=== PATIENT | female | born 1970 | race Caucasian/White ===

== ENCOUNTER 2020-11-16 10:22 | Emergency (ER) | payer MEDICAID, SELFPAY ==
--- NOTE | ~2020-11-16 | XR_ITS ---
EXAMINATION: XR CHEST CLINICAL INFORMATION: Shortness of breath. Hypoxia. COMPARISON: Chest done on 07/07/2017. TECHNIQUE: Frontal view of the chest was obtained. FINDINGS: Subtle airspace opacity is noted at right lung base, may represent hypoventilatory, atelectatic changes versus infiltrate, new since prior study. The heart size is within normal limit. There is no pleural effusion or pneumothorax. XR/XR chest 1V IMPRESSION: Subtle airspace opacity at right lung base, may represent infiltrate versus hypoventilatory/atelectasis or combination thereof.
--- NOTE | ~2020-11-16 | MR_ITS ---
EXAMINATION: MR LUMBAR SPINE WITHOUT AND WITH CONTRAST CLINICAL INFORMATION: Fever, drug use, severe low back pain with lower extremity weakness. COMPARISON: None TECHNIQUE: MRI of the lumbar spine was obtained using routine sequences without and with intravenous contrast. A total of 5.5 mL Gadavist was intravenously administered. FINDINGS: There is diffuse bone marrow edema centered about the L5-S1 endplates with significant enhancement throughout the majority of the L5 and S1 vertebral bodies. There is fluid signal and nonenhancement within the disc space. The constellation of findings are compatible with discitis osteomyelitis with intradiscal abscess. Enhancement is seen along the ventral epidural space at the L5-S1 level extending asymmetrically into the left subarticular zone compatible with phlegmon. No drainable epidural abscess is seen. There is no definite cauda equina nerve root enhancement at this time. No psoas abscess is seen. There is mild phlegmonous change within the paravertebral region at the L5-S1 level. The lumbar vertebral bodies maintain normal heights and alignment. Canal is widely patent. Severe disc height loss is seen at L5-S1 with the remainder of the disc heights preserved. There is no large disc herniation. Spondylotic changes at the L5-S1 level results in moderate bilateral neural foraminal stenosis with mass effect on the exiting right more than left L5 nerve roots. Bilateral renal cysts are noted (no routine follow-up recommended). MR/MR lumbar spine wo/w con IMPRESSION: Subchondral marrow edema and diffuse vertebral body enhancement seen at L5-S1 compatible with osteomyelitis with associated intradiscal abscess. Paravertebral and epidural phlegmon is present without drainable collection. No psoas abscess.
[2020-11-16 10:31] VITALS: BP 114/64; PULSE 91; O2SAT 98
[2020-11-16 10:44] VITALS: BP 106/72; PULSE 80; RESP 16; TEMP 37.2; O2SAT 91; BMI 25.2
[2020-11-16 11:26] LABS: MANUAL DIFF FLAG NO
--- NOTE | 2020-11-16 11:26 | ED_ITS ---
HPI - General Adult General Chief complaint: Skin/Abscess/Foreign Body Stated complaint: LOW BACK PAIN,NO INJURY & R ARM INFECTION PER EMS Time Seen by Provider: 11/16/20 10:49 Source: patient and EMS Mode of arrival: EMS Limitations: no limitations History of Present Illness HPI narrative: 50 y/o female with history of heroin use, asthma, active smoker, history of CVA wtih right sided weakness, heptitis, seizures, hx traumatic subdural hematoma, anxiety who presents to the ED reporting worsening nontraumatic lower back pain for the last 3 weeks as well as new onset of right forearm abscess that she noticed yesterday. She reports a fever of 101 yesterday at home. She states her low back pain has been worsening to the point where she is having difficulty walking and performing her ADL's. She was incontinent of urine 2-3 times yesterday because she was unable to get to the bathroom in time. She reports bilateral LE weakness due to the pain. She has pain shooting down the back of her left leg. No numbness or tingling. She admits to using 1 bag of heroin prior to EMS arrival because of severe pain. She adamantly denies injecting saying that she has not done that in years that she only snorts it. complaint: severe low back pain Onset (ago): week(s) (3) Location: back, right and upper extremity Radiation: distal Severity: severe Severity scale (1-10): >10 Quality: stabbing and aching Pain Consistency: constant Relieving factors: rest Exacerbating factors: movement Associated symptoms: fever/chills, malaise and weakness Treatments prior to arrival: none Related Data Allergies Allergy/AdvReac Type Severity Reaction Status Date / Time No Known Allergies Allergy Verified 11/16/20 10:49 [No Known Allergies*] Review of Systems Review of Systems: Constitutional: + Fever, + Chills ENT/Mouth: No sore throat, No Rhinorrhea, No Swallowing Difficulty Cardiovascular: No Chest Pain, No SOB, No Orthopnea, No Edema Respiratory: No Cough, No Sputum, No Wheezing, No dyspnea Gastrointestinal: No Nausea, No Vomiting, No Diarrhea, No abdominal Pain Genitourinary: No Dysuria, No Urinary Frequency, No Hematuria Musculoskeletal: + joint pain, + Myalgias Skin: + Skin Lesions, No rash Neuro: + Weakness, No Numbness, No Dizziness, No Headache Psych: + Anxiety/Panic, No Depression Heme/Lymph: No Bruising, No Lymphadenopathy Endocrine: No Polyuria, No Polydipsia PMF Past Medical History Attestation statement: The following information was validated with the patient. Social History Social History Advance Directives: No Advance Directives Information Provided: No Physical Exam Vital Signs: Vital Signs: Last Vital Signs Temp 98.9 F 11/16/20 10:44 Pulse 80 11/16/20 10:44 Resp 16 11/16/20 10:44 BP 106/72 11/16/20 10:44 Pulse Ox 95 11/16/20 12:08 Body Mass Index 25.2 Appearance: Alert. Oriented X3. Appears to be in pain. Eyes: Pupils equal, 2mm. ENT: Pharynx normal. Neck: Normal inspection. Neck supple. CVS: Normal heart rate and rhythm. Pulses normal. Respiratory: No respiratory distress. Breath sounds normal. Abdomen: Soft and non-tender. +BS x4. Refusing AYANNA. Back: Significant midline tenderness to lower lumbar spine with left sided soft tissue tenderness. No thorcic or cervical spinal tenderness. Skin: Skin warm and dry. Normal skin color. Normal skin turgor. No rashes. Extremities: No lower extremity edema. Neuro: Oriented X 3. Bilateral LE weakness, able to stand but difficulties lifting both legs due to pain. DTR's intact. No sensory deficit. Course Course Course Narrative: 50 y/o female with active drug use presenting with severe nontraumatic low back pain causing debilitating symptoms and urinary incontinence. Unclear if difficulty ambulating is due to weakness or severe pain. Concern is for epidural abscess vs discitis vs cauda equina. Will need emergent MRI to rule these out.She is uncooperative with full neuro examination due to pain. Will medicate and reassess. Labs and cultures ordered. Empiric vanco and zosyn ordered and IVF ordered as well. She has SpO2 91% without SOB. Smokes 1 PPD, ?COPD. Will get CXR and COVID swab. Dispo pending results and improvement. Reevaluation(s) Reevaluation #1: WBC 14.4. with normal lactic acid. Awaiting MRI. Reevaluation #2: MRI showing Subchondral marrow edema and diffuse vertebral body enhancement seen at L5-S1 compatible with osteomyelitis with associated int radiscal abscess. Paravertebral and epidural phlegmon is present without drainable collection. No psoas abscess. Patient requires emergent Neurosurgical evaluation. [facility] called. When patient informed of diagnosis and need for transfer to acute care facility she had immediate anxiety, and trying to get up and leave. She was able to stand on her legs and take a few shuffling steps. She is crying and asking to go outside for a cigarette. She wants to leave. It was explained the urgency and seriousness of her condition Reevaluation #3: Both [facility] & [facility] declined transfer due to capacity issues. [facility] transfer line called. Accepted to the ER under Dr. Vieira. Procedures Abscess I/D Site: upper extremity Side (if applicable): right Local Anesthetic: lidocaine 2% Amount of anesthesia used (mL): 2 Technique: incised with blade Sent for culture/gram staining?: No Irrigation: Yes Packing used?: [email or web address] Medical Decision Making Lab Data Result diagrams: 11/16/20 11:10 11/16/20 11:10 Labs: Lab Results 11/16/20 11/16/20 11/16/20 Range/Units 11:10 11:10 11:10 WBC 14.4 H (4.8-10.8) X10*3/uL RBC 4.22 (4.20-5.50) X10*6/uL Hgb 12.1 (12.0-16.0) g/dl Hct 38.1 (37-47) % MCV 90.3 (80-98) fL MCH 28.7 (27.0-33.0) pg MCHC 31.8 (31.0-35.0) g/dl RDW 13.9 (11.0-16.0) % Plt Count 315 (160-400) X10*3/uL MPV 9.5 (9.4-12.3) fL Immature Gran % (Auto) 0.5 H (0.0-0.4) % Neut % (Auto) 80.5 H (45-73) % Lymph % (Auto) 10.3 L (20-40) % [place] % (Auto) 7.8 (2-11) % Eos % (Auto) 0.6 (0-4) % Baso % (Auto) 0.3 (0-2) % Lymph # (Auto) 1.5 (1.2-4.9) X10*3/uL [place] # (Auto) 1.1 (0.1-1.2) X10*3/uL Eos # (Auto) 0.1 (0.0-0.4) X10*3/uL Baso # (Auto) 0.1 (0.0-0.2) X10*3/uL Abs Immat Gran (auto) 0.07 H (0.00-0.03) X10*3/uL Absolute Neuts (auto) 11.6 H (2.0-8.3) X10*3/uL Absolute Nucleated RBC 0.000 (0.0-0.012) X10*3/uL Nucleated RBC % (auto) 0.0 (0.0-0.2) /100WBC PT 12.1 (10.8-13.0) SEC INR 1.0 (0.9-1.1) APTT 33.6 (24.1-38.0) SEC Sodium 137 (135-145) mmol/L Potassium 4.0 (3.3-5.1) mmol/L Chloride 100 (96-108) mmol/L Carbon Dioxide 27 (22-29) mmol/L Anion Gap 14 (12-20) BUN 13 (9-16) mg/dL Creatinine 0.57 (0.5-1.4) mg/dL Estim Creat Clear Calc 89.5 Estimated GFR > 60 Random Glucose 99 (60-115) mg/dL Lactic Acid (0.5-2.0) mmol/L Calcium 8.9 (8.4-10.2) mg/dL Magnesium 1.8 (1.6-2.6) mg/dL Total Bilirubin 0.3 (0.0-1.0) mg/dL Direct Bilirubin 0.2 (0.0-0.5) mg/dL AST 25 (5-31) U/L ALT 27 (0-31) U/L Alkaline Phosphatase 83 (39-117) U/L C-Reactive Protein 6.34 H (< or = 0.50) mg/dL Total Protein 7.0 (6.5-8.0) g/dL Albumin 3.6 (3.5-5.0) g/dL Urine Color Urine Appearance Urine pH (5.0-8.0) Ur Specific [place] (1.005-1.025) Urine Protein (NEG-TRACE) MG/DL Urine Glucose (UA) (NEG) MG/DL Urine Ketones (NEG) MG/DL Urine Blood (NEG) Urine Nitrite (NEG) Ur Leukocyte Esterase (NEG) Urine RBC (0) /HPF Urine WBC (0-4) /HPF Ur Squamous Epith Cells /LPF Urine Bacteria /LPF Urine Mucus /LPF Urine Opiates Screen (Not Detect) Ur Barbiturates Screen (Not Detect) Ur Phencyclidine Scrn (Not Detect) Ur Amphetamines Screen (Not Detect) U Benzodiazepines Scrn (Not Detect) Urine Cocaine Screen (Not Detect) U Marijuana (THC) Screen (Not Detect) Coronavirus (PCR) (Negative) Influenza Type A (PCR) (Negative) Influenza Type B (PCR) (Negative) RSV RNA Qual (PCR) (Negative) 11/16/20 11/16/20 11/16/20 Range/Units 11:10 11:10 11:11 WBC (4.8-10.8) X10*3/uL RBC (4.20-5.50) X10*6/uL Hgb (12.0-16.0) g/dl Hct (37-47) % MCV (80-98) fL MCH (27.0-33.0) pg MCHC (31.0-35.0) g/dl RDW (11.0-16.0) % Plt Count (160-400) X10*3/uL MPV (9.4-12.3) fL Immature Gran % (Auto) (0.0-0.4) % Neut % (Auto) (45-73) % Lymph % (Auto) (20-40) % [place] % (Auto) (2-11) % Eos % (Auto) (0-4) % Baso % (Auto) (0-2) % Lymph # (Auto) (1.2-4.9) X10*3/uL [place] # (Auto) (0.1-1.2) X10*3/uL Eos # (Auto) (0.0-0.4) X10*3/uL Baso # (Auto) (0.0-0.2) X10*3/uL Abs Immat Gran (auto) (0.00-0.03) X10*3/uL Absolute Neuts (auto) (2.0-8.3) X10*3/uL Absolute Nucleated RBC (0.0-0.012) X10*3/uL Nucleated RBC % (auto) (0.0-0.2) /100WBC PT (10.8-13.0) SEC INR (0.9-1.1) APTT (24.1-38.0) SEC Sodium (135-145) mmol/L Potassium (3.3-5.1) mmol/L Chloride (96-108) mmol/L Carbon Dioxide (22-29) mmol/L Anion Gap (12-20) BUN (9-16) mg/dL Creatinine (0.5-1.4) mg/dL Estim Creat Clear Calc Estimated GFR Random Glucose (60-115) mg/dL Lactic Acid 1.3 (0.5-2.0) mmol/L Calcium (8.4-10.2) mg/dL Magnesium (1.6-2.6) mg/dL Total Bilirubin (0.0-1.0) mg/dL Direct Bilirubin (0.0-0.5) mg/dL AST (5-31) U/L ALT (0-31) U/L Alkaline Phosphatase (39-117) U/L C-Reactive Protein (< or = 0.50) mg/dL Total Protein (6.5-8.0) g/dL Albumin (3.5-5.0) g/dL Urine Color YELLOW Urine Appearance HAZY Urine pH 7.5 (5.0-8.0) Ur Specific [place] 1.020 (1.005-1.025) Urine Protein NEG (NEG-TRACE) MG/DL Urine Glucose (UA) NEG (NEG) MG/DL Urine Ketones NEG (NEG) MG/DL Urine Blood 1+ H (NEG) Urine Nitrite NEG (NEG) Ur Leukocyte Esterase NEG (NEG) Urine RBC 1-4 (0) /HPF Urine WBC 1-4 (0-4) /HPF Ur Squamous Epith Cells 1+ /LPF Urine Bacteria NONE /LPF Urine Mucus 1+ /LPF Urine Opiates Screen (Not Detect) Ur Barbiturates Screen (Not Detect) Ur Phencyclidine Scrn (Not Detect) Ur Amphetamines Screen (Not Detect) U Benzodiazepines Scrn (Not Detect) Urine Cocaine Screen (Not Detect) U Marijuana (THC) Screen (Not Detect) Coronavirus (PCR) NEGATIVE (Negative) Influenza Type A (PCR) NEGATIVE (Negative) Influenza Type B (PCR) NEGATIVE (Negative) RSV RNA Qual (PCR) NEGATIVE (Negative) 11/16/20 Range/Units 11:11 WBC (4.8-10.8) X10*3/uL RBC (4.20-5.50) X10*6/uL Hgb (12.0-16.0) g/dl Hct (37-47) % MCV (80-98) fL MCH (27.0-33.0) pg MCHC (31.0-35.0) g/dl RDW (11.0-16.0) % Plt Count (160-400) X10*3/uL MPV (9.4-12.3) fL Immature Gran % (Auto) (0.0-0.4) % Neut % (Auto) (45-73) % Lymph % (Auto) (20-40) % [place] % (Auto) (2-11) % Eos % (Auto) (0-4) % Baso % (Auto) (0-2) % Lymph # (Auto) (1.2-4.9) X10*3/uL [place] # (Auto) (0.1-1.2) X10*3/uL Eos # (Auto) (0.0-0.4) X10*3/uL Baso # (Auto) (0.0-0.2) X10*3/uL Abs Immat Gran (auto) (0.00-0.03) X10*3/uL Absolute Neuts (auto) (2.0-8.3) X10*3/uL Absolute Nucleated RBC (0.0-0.012) X10*3/uL Nucleated RBC % (auto) (0.0-0.2) /100WBC PT (10.8-13.0) SEC INR (0.9-1.1) APTT (24.1-38.0) SEC Sodium (135-145) mmol/L Potassium (3.3-5.1) mmol/L Chloride (96-108) mmol/L Carbon Dioxide (22-29) mmol/L Anion Gap (12-20) BUN (9-16) mg/dL Creatinine (0.5-1.4) mg/dL Estim Creat Clear Calc Estimated GFR Random Glucose (60-115) mg/dL Lactic Acid (0.5-2.0) mmol/L Calcium (8.4-10.2) mg/dL Magnesium (1.6-2.6) mg/dL Total Bilirubin (0.0-1.0) mg/dL Direct Bilirubin (0.0-0.5) mg/dL AST (5-31) U/L ALT (0-31) U/L Alkaline Phosphatase (39-117) U/L C-Reactive Protein (< or = 0.50) mg/dL Total Protein (6.5-8.0) g/dL Albumin (3.5-5.0) g/dL Urine Color Urine Appearance Urine pH (5.0-8.0) Ur Specific [place] (1.005-1.025) Urine Protein (NEG-TRACE) MG/DL Urine Glucose (UA) (NEG) MG/DL Urine Ketones (NEG) MG/DL Urine Blood (NEG) Urine Nitrite (NEG) Ur Leukocyte Esterase (NEG) Urine RBC (0) /HPF Urine WBC (0-4) /HPF Ur Squamous Epith Cells /LPF Urine Bacteria /LPF Urine Mucus /LPF Urine Opiates Screen POSITIVE H (Not Detect) Ur Barbiturates Screen Not Detected (Not Detect) Ur Phencyclidine Scrn Not Detected (Not Detect) Ur Amphetamines Screen Not Detected (Not Detect) U Benzodiazepines Scrn Not Detected (Not Detect) Urine Cocaine Screen POSITIVE H (Not Detect) U Marijuana (THC) Screen POSITIVE H (Not Detect) Coronavirus (PCR) (Negative) Influenza Type A (PCR) (Negative) Influenza Type B (PCR) (Negative) RSV RNA Qual (PCR) (Negative) Critical Care Time Critical Care Time Critical Care Time: Yes Total Critical Care Time: 45 Attestation: I attest to critical care time spent caring for this patient with spinal infection leading to neurological deficits requiring close monitoring, frequent reassessments of neuro's, coordination of care and reviewing of imaging. Discharge Plan Discharge Clinical Impression: Acute osteomyelitis of lumbar spine Abscess of skin or subcutaneous tissue Qualifiers: Site of cutaneous abscess: extremity Site of cutaneous abscess of extremity: upper extremity Laterality: right Qualified Code(s): L02.413 - Cutaneous abscess of right upper limb Discitis Qualifiers: Spinal region: lumbosacral Qualified Code(s): M46.47 - Discitis, unspecified, lumbosacral region Patient Disposition: [facility] Transfer Details: [facility] for Neurosurgical evaluation
[2020-11-16 11:31] LABS: Basophils Absolute Auto 0.1 X10*3/uL (0.0-0.2); Basophils Percent Auto 0.3 % (0-2); Eosinophils Absolute Auto 0.1 X10*3/uL (0.0-0.4); Eosinophils Percent Auto 0.6 % (0-4); Hematocrit 38.1 % (37-47); Hemoglobin 12.1 g/dl (12.0-16.0); Imm Gran Abs Auto 0.07 X10*3/uL (0.00-0.03); Imm Gran Pct Auto 0.5 % (0.0-0.4); Lymphocytes Absolute Auto 1.5 X10*3/uL (1.2-4.9); Lymphocytes Percent Auto 10.3 % (20-40); Mean Corpuscular HGB Conc 31.8 g/dl (31.0-35.0); Mean Corpuscular Hemoglobin 28.7 pg (27.0-33.0); Mean Corpuscular Volume 90.3 fL (80-98); Mean Platelet Volume 9.5 fL (9.4-12.3); Monocytes Absolute Auto 1.1 X10*3/uL (0.1-1.2); Monocytes Percent Auto 7.8 % (2-11); Neutrophils Absolute Auto 11.6 X10*3/uL (2.0-8.3); Neutrophils Percent Auto 80.5 % (45-73); Platelet Count 315 X10*3/uL (160-400); Red Blood Count 4.22 X10*6/uL (4.20-5.50); Red Cell Distribution Width 13.9 % (11.0-16.0); White Blood Count 14.4 X10*3/uL (4.8-10.8)
[2020-11-16 11:34] LABS: Glucose Urine UA NEG (NEG); Leukocyte Esterase Urine NEG (NEG); Nitrite Urine NEG (NEG); PH 7.5 (5.0-8.0); Urine Blood 1+ (NEG); Urine Ketones NEG (NEG); Urine Protein NEG (NEG-TRACE)
[2020-11-16 11:35] LABS: Appearance Urine HAZY; Color Urine YELLOW
[2020-11-16 11:46] LABS: Lactic Acid 1.3 mmol/L (0.5-2.0)
[2020-11-16 11:49] LABS: Prothrombin Time 12.1 SEC (10.8-13.0)
[2020-11-16 11:49] LABS: Mucus Urine 1+ /LPF; Squamous Epithelial Cell Urine 1+ /LPF
[2020-11-16 11:52] LABS: Alanine Aminotransferase 27 U/L (0-31); Albumin Level 3.6 g/dL (3.5-5.0); Alkaline Phosphatase 83 U/L (39-117); Anion Gap 14 (12-20); Aspartate Amino Transferase 25 U/L (5-31); Bilirubin Direct 0.2 mg/dL (0.0-0.5); Bilirubin Total 0.3 mg/dL (0.0-1.0); Blood Urea Nitrogen 13 mg/dL (9-16); C Reactive Protein 6.34 mg/dL (< or = 0.50); Calcium 8.9 mg/dL (8.4-10.2); Carbon Dioxide 27 mmol/L (22-29); Chloride 100 mmol/L (96-108); Creatinine Clr Calc Pharmacy 89.5; Estimated Glomerular Filt Rate > 60; Glucose Random 99 mg/dL (60-115); Magnesium 1.8 mg/dL (1.6-2.6); Partial Thromboplastin Time 33.6 SEC (24.1-38.0); Sodium 137 mmol/L (135-145)
--- NOTE | 2020-11-16 12:07 | PC.NURSE ---
IV inserted, labs obtained, and MRI screening form complete. Pt moved to room 20 for supplemental 02. Sats were 91% on RA. She was placed on 2liters with sats 95%.
[2020-11-16 12:08] VITALS: O2SAT 95
[2020-11-16 12:09] LABS: Amphetamine Screen Urine Not Detected (Not Detect); Barbiturates, Urine Not Detected (Not Detect); Benzodiazepines Screen Urine Not Detected (Not Detect); Cannabinoid Screen Urine POSITIVE (Not Detect); Cocaine Screen Urine POSITIVE (Not Detect); Opiate Screen Urine POSITIVE (Not Detect); Phencyclidine Screen Urine Not Detected (Not Detect)
[2020-11-16] MEDS: HYDROcodone Bit/Acetam 5/325 TABLET 1 TAB PO ×2 (12:14→14:40)
[2020-11-16] MEDS: Ibuprofen 600 MG TABLET PO (12:14)
[2020-11-16] MEDS: Piperacillin Sodium/Tazobactam 3.375 GM in 0.9 % Sodium Chloride 50 ML IV (12:16)
[2020-11-16] MEDS: 0.9 % Sodium Chloride 1,000 ML 999 ML IVCONT (12:16)
[2020-11-16 12:36] LABS: Influenza A PCR NEGATIVE (Negative); Influenza B PCR NEGATIVE (Negative); Resp Syncy Virus RNA Qual PCR NEGATIVE (Negative); SARS COV2 PCR INHOUSE NEGATIVE (Negative)
[2020-11-16] MEDS: vancomycin HCL 750 MG in 0.9 % Sodium Chloride 250 ML 265 MG IV (13:51)
[2020-11-16] MEDS: Lidocaine HCl 2 % MPF 5 ML VIAL INFILTRATI (13:51)
--- NOTE | 2020-11-16 14:21 | PC.NURSE ---
@ 1402 ERIC JAIN REQUESTS ALL TO [facility] PT [place] LINE FOR THIS PT EDMOND ANSWERS, ASKS FOR PT INFO AND TO SPEAK WITH CRISTOBAL JAIN IS TOLD [facility] IS CLOSED TO STABLE TRANSFERS @ THIS TIME @ [address] [facility] HERMINIO ANSWERS, TAKES PT INFO AND ASKS TO SPEAK WITH CRISTOBAL JAIN TAKES OVER CALL RIGHT AWAY
--- NOTE | 2020-11-16 14:36 | PC.NURSE ---
@ 3209 CRISTOBAL STATES [facility] NOT ACCEPTING TX @ THIS TIME AND ASKS FOR A CALL TO BE PLACED TO [facility] @ 1432 CALL PLACED TO [facility] PT TX LINE ALYSHA ANSWERS,TAKES PT INFO AND ASKS TO SPEAK WITH PA CRISTOBAL JAIN TAKES OVER CALL RIGHT AWAY
[2020-11-16] MEDS: Nicotine 21 MG PATCH.TD24 TRANSDERMA (14:40)
[2020-11-16] MEDS: LORazepam 2 MG/ML VIAL 1 MG IVPUSH (14:44)
[2020-11-16 15:46] VITALS: BP 105/67; PULSE 60; RESP 19; TEMP 36.5; O2SAT 93
--- NOTE | 2020-11-16 15:54 | PC.NURSE ---
Plan to gómez pt r/t MRI findings. This plan was discussed with the patient who is agreeable with the plan at this time.
[2020-11-16 16:00] VITALS: BP 102/67; PULSE 64; RESP 15; TEMP 36.9; O2SAT 93
== END 2020-11-16 16:36 | disposition short-term general hospital (02) ==
PROVIDERS: Physician Assistant; Emergency Provider Emergency Medicine Emergency Medical Services; PCP Nurse Practitioner Family
DX: M46.26 Osteomyelitis of vertebra, lumbar region (principal); M46.47 Discitis, unspecified, lumbosacral region; L02.413 Cutaneous abscess of right upper limb; Z20.822 Contact with and (suspected) exposure to COVID-19; R50.9 Fever, unspecified; F11.90 Opioid use, unspecified, uncomplicated; J45.909 Unspecified asthma, uncomplicated; F41.9 Anxiety disorder, unspecified; F17.200 Nicotine dependence, unspecified, uncomplicated; Z86.73 Personal history of transient ischemic attack (TIA), and cerebral infarction without residual deficits
CPT/HCPCS: 0241U; 10060; 36415; 71045; 72158; 80048; 80076; 80307; 81001; 83605; 83735; 85025; 85610; 85730; 86140; 87040; 96361; 96365; 96368; 96375; 99285; 99291; A9585; J2060; J2543; J3370

== ENCOUNTER 2020-11-26 12:49 | Emergency (ER) | payer MEDICAID, SELFPAY ==
[2020-11-26 13:17] VITALS: BP 104/64; PULSE 86; RESP 16; TEMP 36.3; O2SAT 99; BMI 20.5
--- NOTE | 2020-11-26 14:41 | ED.BACK ---
HPI - Back Pain/Injury General Chief Complaint: Back Pain/Injury Stated Complaint: LOW BACK PAIN,RECENT AMA FROM [facility] Time Seen by Provider: 11/26/20 13:18 Source: patient and EMS Mode of arrival: EMS History of Present Illness HPI Narrative: 50 y/o female with history of heroin use, asthma, active smoker, history of CVA wtih right sided weakness, heptitis, seizures, hx traumatic subdural hematoma, anxiety, recently diagnosed with L1-S1 osteomyelitis with intradiscal abscess at our facility transferred to [facility] where she signed out AMA on Wednesday presenting to our ED complaining of persistent low back pain radiating down bilateral lower extremities. Reports she did not like the care she received at [facility], refusing to go back, however, does report compliance with p.o. antibiotics Levaquin and Doxycycline. Admits to lower extremity pain/weakness unchanged. Denies fever, chills, urinary incontinence/retention, recent fall/trauma MD elicited complaint: back pain Related Data Allergies Allergy/AdvReac Type Severity Reaction Status Date / Time No Known Allergies Allergy Verified 11/16/20 10:49 [No Known Allergies*] Review of Systems Review of Systems: Constitutional: No Fever, No Chills Cardiovascular: No Chest Pain, No SOB Respiratory: No Cough, No Sputum, No Wheezing, No Smoke Exposure, No Dyspnea Gastrointestinal: No Nausea, No Vomiting, No Abdominal pain Genitourinary: No Dysuria, No Urinary Frequency, No Urinary Incontinence/retention, No Urinary Flow Changes Musculoskeletal: +back pain, No Myalgias, No Joint Swelling Skin: No Skin Lesions, No rash Neuro: + Weakness, No Numbness, No Headache Neurologic: Denies Sensory deficit (Neuro) [facility] Past Medical History Attestation statement: The following information was validated with the patient. Social History Social History Alcohol intake: unknown Use of substances other than those prescribed or required for medical reasons: Refusing to respond Advance Directives: No Advance Directives Information Provided: No Physical Exam Vital Signs: Vital Signs: Last Vital Signs Temp 97.4 F 11/26/20 13:17 Pulse 86 11/26/20 13:17 Resp 16 11/26/20 13:17 BP 104/64 11/26/20 13:17 Pulse Ox 99 11/26/20 13:17 Body Mass Index 20.5 Const: Other: appears under the influence General: cooperative, healthy appearing and comfortable Orientation/consciousness: patient oriented x3 Limitations: no limitations HENMT: Head: Yes normal to inspection Ears: hearing grossly normal bilaterally General nose exam: Normal external nose present Face and sinus: Yes normal facial exam Eyes: General: appearance normal, both eyes and all related structures EOM: EOMs intact bilaterally Neck: Neck: Yes normal visual inspection Resp: Effort & Inspection: normal respiratory effort Cardio: Rate: regular rate GI: Inspection: Yes normal to inspection Palpation (GI): Soft to palpation, nontender and no guarding Back/Spine/Pelvis: Other: No midline thoracic/lumbar spinous tenderness or step-offs. No appreciable inflammation/cellulitis Skin: Rashes: no rashes Wounds: no wounds Neuro: Other: Limping / shuffling gait with cane. No saddle anesthesia. Strength intact to lower extremities General: patient oriented x3, tone normal and moves all extremities Motor exam (neuro): 5/5 motor strength present throughout Sensory Exam: No Sensory deficit (Neuro) Extrem: General: Yes normal to inspection Course Course Course Narrative: Informed patient's blood cultures & biopsy performed at [facility] were negative. Left AMA Sat morning, was discharged on Doxycycline and Levaquin from Infectious Disease rec, plan was for patient to go to short-term rehab with 5 weeks of IV antibiotics, however patient unreliable thus p.o. antibiotics were initiated. Neurosurgery deemed no intervention >> still pending official documentation from [facility]. Physical therapy/case management consult placed. Will touch base with ID [id number]--improvement in leukocytosis and CRP from prior visit on 11/16 -ESR 23 [id number]--spoke to Infectious Disease Dr. Francisco, pending initiation of IV antibiotics until the records obtained from [facility]. Patient is currently on p.o. antibiotics from previous ID consult. ED care transferred to [facility] pending PT/CM and [facility] records MDM - Back Pain/Injury MDM Narrative Medical decision making narrative: 50 y/o female with history of heroin use, asthma, active smoker, history of CVA wtih right sided weakness, heptitis, seizures, hx traumatic subdural hematoma, anxiety, recently diagnosed with L1-S1 osteomyelitis with intradiscal abscess at our facility transferred to [facility] where she signed out AMA on Wednesday presenting to our ED complaining of persistent low back pain radiating down bilateral lower extremities. On exam VSS, NAD, no midline spinous tenderness, no red flag symptoms, no saddle anesthesia. Likely acute on chronic osteomyelitis/infection vs pain. Patient currently on p.o. antibiotics. Plan: Repeat labs, request records from [facility] Attestation: I reviewed the patient's medical records. Lab Data Attestation: I reviewed the patient's lab results. Result diagrams: 11/26/20 15:00 11/26/20 15:00 Labs: Lab Results 11/26/20 11/26/20 11/26/20 Range/Units 15:00 15:00 15:00 WBC 10.9 H (4.8-10.8) X10*3/uL RBC 4.43 (4.20-5.50) X10*6/uL Hgb 12.8 (12.0-16.0) g/dl Hct 40.9 (37-47) % MCV 92.3 (80-98) fL MCH 28.9 (27.0-33.0) pg MCHC 31.3 (31.0-35.0) g/dl RDW 14.4 (11.0-16.0) % Plt Count 315 (160-400) X10*3/uL MPV 9.3 L (9.4-12.3) fL Immature Gran % (Auto) 0.5 H (0.0-0.4) % Neut % (Auto) 66.4 (45-73) % Lymph % (Auto) 25.1 (20-40) % [place] % (Auto) 6.7 (2-11) % Eos % (Auto) 0.7 (0-4) % Baso % (Auto) 0.6 (0-2) % Lymph # (Auto) 2.8 (1.2-4.9) X10*3/uL [place] # (Auto) 0.7 (0.1-1.2) X10*3/uL Eos # (Auto) 0.1 (0.0-0.4) X10*3/uL Baso # (Auto) 0.1 (0.0-0.2) X10*3/uL Abs Immat Gran (auto) 0.05 H (0.00-0.03) X10*3/uL Absolute Neuts (auto) 7.3 (2.0-8.3) X10*3/uL Absolute Nucleated RBC 0.000 (0.0-0.012) X10*3/uL Nucleated RBC % (auto) 0.0 (0.0-0.2) /100WBC ESR 23 H (0-20) MM/HR Hold Blue Top Sodium 140 (135-145) mmol/L Potassium 4.5 (3.3-5.1) mmol/L Chloride 106 (96-108) mmol/L Carbon Dioxide 25 (22-29) mmol/L Anion Gap 14 (12-20) BUN 20 H D (9-16) mg/dL Creatinine 0.60 (0.5-1.4) mg/dL Estim Creat Clear Calc 95.3 Estimated GFR > 60 Random Glucose 97 (60-115) mg/dL Calcium 8.8 (8.4-10.2) mg/dL C-Reactive Protein 0.77 H (< or = 0.50) mg/dL 11/26/20 Range/Units 15:01 WBC (4.8-10.8) X10*3/uL RBC (4.20-5.50) X10*6/uL Hgb (12.0-16.0) g/dl Hct (37-47) % MCV (80-98) fL MCH (27.0-33.0) pg MCHC (31.0-35.0) g/dl RDW (11.0-16.0) % Plt Count (160-400) X10*3/uL MPV (9.4-12.3) fL Immature Gran % (Auto) (0.0-0.4) % Neut % (Auto) (45-73) % Lymph % (Auto) (20-40) % [place] % (Auto) (2-11) % Eos % (Auto) (0-4) % Baso % (Auto) (0-2) % Lymph # (Auto) (1.2-4.9) X10*3/uL [place] # (Auto) (0.1-1.2) X10*3/uL Eos # (Auto) (0.0-0.4) X10*3/uL Baso # (Auto) (0.0-0.2) X10*3/uL Abs Immat Gran (auto) (0.00-0.03) X10*3/uL Absolute Neuts (auto) (2.0-8.3) X10*3/uL Absolute Nucleated RBC (0.0-0.012) X10*3/uL Nucleated RBC % (auto) (0.0-0.2) /100WBC ESR (0-20) MM/HR Hold Blue Top SEE NOTE Sodium (135-145) mmol/L Potassium (3.3-5.1) mmol/L Chloride (96-108) mmol/L Carbon Dioxide (22-29) mmol/L Anion Gap (12-20) BUN (9-16) mg/dL Creatinine (0.5-1.4) mg/dL Estim Creat Clear Calc Estimated GFR Random Glucose (60-115) mg/dL Calcium (8.4-10.2) mg/dL C-Reactive Protein (< or = 0.50) mg/dL Discharge Plan Discharge Clinical Impression: Acute osteomyelitis of lumbar spine
[2020-11-26 15:06] LABS: MANUAL DIFF FLAG NO
[2020-11-26 15:07] LABS: Basophils Absolute Auto 0.1 X10*3/uL (0.0-0.2); Basophils Percent Auto 0.6 % (0-2); Eosinophils Absolute Auto 0.1 X10*3/uL (0.0-0.4); Eosinophils Percent Auto 0.7 % (0-4); Hematocrit 40.9 % (37-47); Hemoglobin 12.8 g/dl (12.0-16.0); Imm Gran Abs Auto 0.05 X10*3/uL (0.00-0.03); Imm Gran Pct Auto 0.5 % (0.0-0.4); Lymphocytes Absolute Auto 2.8 X10*3/uL (1.2-4.9); Lymphocytes Percent Auto 25.1 % (20-40); Mean Corpuscular HGB Conc 31.3 g/dl (31.0-35.0); Mean Corpuscular Hemoglobin 28.9 pg (27.0-33.0); Mean Corpuscular Volume 92.3 fL (80-98); Mean Platelet Volume 9.3 fL (9.4-12.3); Monocytes Absolute Auto 0.7 X10*3/uL (0.1-1.2); Monocytes Percent Auto 6.7 % (2-11); Neutrophils Absolute Auto 7.3 X10*3/uL (2.0-8.3); Neutrophils Percent Auto 66.4 % (45-73); Platelet Count 315 X10*3/uL (160-400); Red Blood Count 4.43 X10*6/uL (4.20-5.50); Red Cell Distribution Width 14.4 % (11.0-16.0); White Blood Count 10.9 X10*3/uL (4.8-10.8)
[2020-11-26 15:33] LABS: Anion Gap 14 (12-20); Blood Urea Nitrogen 20 mg/dL (9-16); C Reactive Protein 0.77 mg/dL (< or = 0.50); Calcium 8.8 mg/dL (8.4-10.2); Carbon Dioxide 25 mmol/L (22-29); Chloride 106 mmol/L (96-108); Creatinine Clr Calc Pharmacy 95.3; Estimated Glomerular Filt Rate > 60; Glucose Random 97 mg/dL (60-115); Potassium 4.5 mmol/L (3.3-5.1); Sodium 140 mmol/L (135-145)
[2020-11-26 15:51] LABS: Erythrocyte Sedimentation Rate 23 MM/HR (0-20)
[2020-11-26] MEDS: Acetaminophen 325 MG TABLET 650 MG PO (16:11)
--- NOTE | 2020-11-26 19:06 | PC.NURSE ---
This RN to bedside to DC patient. Pt aaox4, states she believes she is going to STR in AM for IV ABX. This RN asked Jael from if any STR was set up for pt; it was not. This RN spoke with [facility] to verify if any STR is meant to be set up for pt. Per Iris, pt had denied STR multiple times earlier in the day with requests to leave AMA from [facility]. Per pt, pt left AMA from [facility] a few days ago because it was too far from home despite being recommended for STR at that time. This RN reviewed DC paperwork with patient including plan for PO abx and severity and risks associated with pt's infection. Pt agreeable to plan for DC with PO abx. Pt ambulatory with steady gait upon DC.
== END 2020-11-26 19:11 | disposition left against medical advice (07) ==
PROVIDERS: Physician Assistant; Emergency Provider Emergency Medicine
DX: M46.26 Osteomyelitis of vertebra, lumbar region (principal); M54.5 Low back pain; F11.90 Opioid use, unspecified, uncomplicated; J45.909 Unspecified asthma, uncomplicated; F17.200 Nicotine dependence, unspecified, uncomplicated; Z86.73 Personal history of transient ischemic attack (TIA), and cerebral infarction without residual deficits
CPT/HCPCS: 36415; 80048; 85025; 85652; 86140; 99284

== ENCOUNTER 2021-08-03 08:49 | Emergency (ER) | payer MEDICAID, SELFPAY | END 2021-08-03 11:17 | disposition left against medical advice (07) | PROVIDERS: Emergency Provider Emergency Medicine | DX: K08.89 Other specified disorders of teeth and supporting structures (principal) ==

== ENCOUNTER 2022-03-26 00:50 | Inpatient (IN) | payer MEDICAID, SELFPAY ==
[2022-03-26] VITALS (7 sets, daily range): BP systolic 100–149; BP diastolic 59–91; PULSE 52–104; RESP 12–24; TEMP 36.4–36.8; O2SAT 95–100; BMI 28.0
--- NOTE | ~2022-03-26 | XR_ITS ---
EXAMINATION: XR CHEST CLINICAL INFORMATION: Short of breath COMPARISON: 11/16/2020 TECHNIQUE: Frontal view of the chest was obtained. FINDINGS: The lungs are well expanded. There is no focal consolidation, edema, or effusion. Diffuse bronchial wall thickening is present. No pneumothorax. The cardiomediastinal silhouette is within normal limits. No acute osseous abnormality. XR/XR chest 1V IMPRESSION: No dense consolidation. Bronchial wall thickening can be seen with a small airways process such as asthma or atypical/viral infection.
--- NOTE | 2022-03-26 00:58 | ECG_ITS ---
Test Reason : SOB Blood Pressure : / mmHG Vent. Rate : 098 BPM Atrial Rate : 098 BPM P-R Int : 160 ms QRS Dur : 084 ms QT Int : 358 ms P-R-T Axes : 047 026 045 degrees QTc Int : 457 ms Sinus rhythm with Premature atrial complexes Otherwise normal ECG When compared with ECG of 19-JUN-2017 08:55, Premature atrial complexes are now Present Vent. rate has increased BY 32 BPM Referred By: Angy Lopez Electronically Signed By:BENY VALLE
--- NOTE | 2022-03-26 01:13 | ED_ITS ---
HPI - SOB/Dyspnea General Chief Complaint: Dyspnea Stated Complaint: difficulty breathing, covid+ Time Seen by Provider: 03/26/22 00:58 Source: patient Mode of arrival: EMS History of Present Illness HPI Narrative: 52-year-old female with history of COPD, snorting heroin, and is brought in by EMS from home with complaints of shortness of breath. Although in the triage noted states that patient was diagnosed with COVID 2 weeks ago, she states that she tested positive on Wednesday. As per EMS they found patient with oxygenation in the 80s on room air. Patient improved significantly to 98% with 4 L via nasal cannula. Patient has viral complaints of fever, chills, body aches and also describes sore throat, cough. Related Data Home Medications Medication Instructions Recorded Confirmed doxycycline hyclate 100 mg capsule 1 cap PO BID 11/26/20 11/26/20 fluticasone propionate 220 2 puff PO BID 11/26/20 11/26/20 mcg/actuation HFA aerosol inhaler (Flovent HFA) fluticasone propionate 50 2 spray intranasal QAM 11/26/20 11/26/20 mcg/actuation nasal spray,suspension levofloxacin 750 mg tablet 1 tab PO DAILY 11/26/20 11/26/20 melatonin 3 mg tablet 1 tab PO BEDTIME PRN Sleep 11/26/20 11/26/20 pregabalin 200 mg capsule 1 cap PO TID 11/26/20 11/26/20 tiotropium bromide 18 mcg capsule 1 cap inhalation DAILY 11/26/20 11/26/20 with inhalation device (Spiriva with HandiHaler) Allergies Allergy/AdvReac Type Severity Reaction Status Date / Time No Known Allergies Allergy Verified 11/16/20 10:49 [No Known Allergies*] Review of Systems Review of Systems: Pertinent positives and negatives as stated in HPI 10 point review of systems is otherwise negative. COUNT INCLUDES THE [facility] Past Medical History Source: nursing notes reviewed Social History Social History Alcohol intake: unknown Physical Exam Vital Signs: Vital Signs: Last Vital Signs Temp 98.2 F 03/26/22 01:02 Pulse 93 03/26/22 02:28 Resp 24 H 03/26/22 02:28 BP 114/72 03/26/22 01:02 Pulse Ox 96 03/26/22 01:02 O2 Del Method 03/26/22 01:02 Oxygen Flow Rate 4 03/26/22 01:02 BMI result Body Mass Index 28.0 VITAL SIGNS: Reviewed. GENERAL: Well developed, well nourished, in no acute distress. HEAD: Normocephalic/atraumatic EYES: PERRLA, EOMI EARS: Ext canals without abnormality OROPHARYNX: no oral lesions noted, posterior pharynx clear, dry mucosa NECK: Supple, no adenopathy LUNGS: Good inspiratory effort, with scattered expiratory wheeze, increased work of breathing, nasal cannula at [address] SpO2<96> CARDIOVASCULAR: Regular rate and rhythm without noted murmurs, no JVD or lower extremity edema. ABDOMEN: Soft, non-tender, non-distended with bowel sounds. MUSCULOSKELETAL: No tenderness, deformities, or effusions noted on gross inspection. EXTREMITIES: No cyanosis, clubbing or edema. SKIN: Inspection of the skin reveals no rashes NEUROLOGIC: Alert and oriented x 4. Strength and sensation to light touch were grossly intact x 4. Course Course Course Narrative: 0100: 52-year-old female with history and clinical presentation consistent with hypoxia secondary to COVID-19 infection complicated by underlying COPD NOT COPD EXACERBATION. Review of all investigations demonstrates the patient is COVID-19 positive, VBG without CO2 retention not indicative of the acute retaining COPD exacerbation. Patient was treated with albuterol treatment as well as steroids. She remains on supplemental oxygen. I discussed this case the inpatient hospitalist who accepts admission. MDM - SOB/Dyspnea Lab Data Result diagrams: 03/26/22 01:46 03/26/22 02:10 Labs: Lab Results 03/26/22 03/26/22 03/26/22 Range/Units 01:46 01:46 01:47 WBC 8.9 (4.8-10.8) X10*3/uL RBC 4.44 (4.20-5.50) X10*6/uL Hgb 12.6 (12.0-16.0) g/dl Hct 39.0 (37.0-47.0) % MCV 87.8 (80.0-98.0) fL MCH 28.4 (27.0-33.0) pg MCHC 32.3 (31.0-35.0) g/dl RDW 15.7 (11.0-16.0) % Plt Count Not Reportable MPV Not Reportable Immature Gran % (Auto) 0.3 (0.0-0.4) % Neut % (Auto) 82.7 H (45-73) % Lymph % (Auto) 12.2 L (20-40) % [place] % (Auto) 4.6 (2-11) % Eos % (Auto) 0.0 (0-4) % Baso % (Auto) 0.2 (0-2) % Lymph # (Auto) 1.1 L (1.2-4.9) X10*3/uL [place] # (Auto) 0.4 (0.1-1.2) X10*3/uL Eos # (Auto) 0.0 (0.0-0.4) X10*3/uL Baso # (Auto) 0.0 (0.0-0.2) X10*3/uL Abs Immat Gran (auto) 0.03 (0.00-0.03) X10*3/uL Absolute Neuts (auto) 7.3 (2.0-8.3) x10*3/uL Absolute Nucleated RBC 0.000 (0.0-0.012) X10*3/uL Nucleated RBC % (auto) 0.0 (0.0-0.2) /100WBC Smear Tech's Comments VERIFIED PT (10.0-13.1) SEC INR (0.9-1.1) VBG pH (7.32-7.43) VBG pCO2 mmHg VBG pO2 mmHg VBG HCO3 (22-26) mmol/L VBG O2 Saturation % VBG Base Excess mmol/L Sodium (135-145) mmol/L Potassium (3.3-5.1) mmol/L Chloride (96-108) mmol/L Carbon Dioxide (22-29) mmol/L Anion Gap (12-20) BUN (9-16) mg/dL Creatinine (0.5-1.4) mg/dL Estim Creat Clear Calc Estimated GFR Random Glucose (60-115) mg/dL Lactic Acid 0.9 (0.5-2.0) mmol/L Calcium (8.4-10.2) mg/dL Total Bilirubin (0.0-1.0) mg/dL AST (5-31) U/L ALT (0-31) U/L Alkaline Phosphatase (39-117) U/L Troponin I High Sens 5.1 (<3.5-17.0) ng/L C-Reactive Protein (< or = 0.50) mg/dL Total Protein (6.5-8.0) g/dL Albumin (3.5-5.0) g/dL Urine Color Urine Appearance Urine pH (5.0-8.0) Ur Specific [place] (1.005-1.025) Urine Protein (Neg-Trace) mg/dL Urine Glucose (UA) (Negative) mg/dL Urine Ketones (Negative) mg/dL Urine Blood (Negative) Urine Nitrite (Negative) Ur Leukocyte Esterase (Negative) Urine RBC (0-2) /HPF Urine WBC (0-5) /HPF Ur Squamous Epith Cells (0-2) /HPF Urine Bacteria (None Seen) Hyaline Casts (0-2) /LPF COVID-19 (BOONE) (Negative) COVID-19 Clin Com 03/26/22 03/26/22 03/26/22 Range/Units 01:48 01:56 02:04 WBC (4.8-10.8) X10*3/uL RBC (4.20-5.50) X10*6/uL Hgb (12.0-16.0) g/dl Hct (37.0-47.0) % MCV (80.0-98.0) fL MCH (27.0-33.0) pg MCHC (31.0-35.0) g/dl RDW (11.0-16.0) % Plt Count MPV Immature Gran % (Auto) (0.0-0.4) % Neut % (Auto) (45-73) % Lymph % (Auto) (20-40) % [place] % (Auto) (2-11) % Eos % (Auto) (0-4) % Baso % (Auto) (0-2) % Lymph # (Auto) (1.2-4.9) X10*3/uL [place] # (Auto) (0.1-1.2) X10*3/uL Eos # (Auto) (0.0-0.4) X10*3/uL Baso # (Auto) (0.0-0.2) X10*3/uL Abs Immat Gran (auto) (0.00-0.03) X10*3/uL Absolute Neuts (auto) (2.0-8.3) x10*3/uL Absolute Nucleated RBC (0.0-0.012) X10*3/uL Nucleated RBC % (auto) (0.0-0.2) /100WBC Smear Tech's Comments PT (10.0-13.1) SEC INR (0.9-1.1) VBG pH 7.45 H (7.32-7.43) VBG pCO2 27 mmHg VBG pO2 132 mmHg VBG HCO3 19 L (22-26) mmol/L VBG O2 Saturation 99.0 % VBG Base Excess -3.2 mmol/L Sodium (135-145) mmol/L Potassium (3.3-5.1) mmol/L Chloride (96-108) mmol/L Carbon Dioxide (22-29) mmol/L Anion Gap (12-20) BUN (9-16) mg/dL Creatinine (0.5-1.4) mg/dL Estim Creat Clear Calc Estimated GFR Random Glucose (60-115) mg/dL Lactic Acid (0.5-2.0) mmol/L Calcium (8.4-10.2) mg/dL Total Bilirubin (0.0-1.0) mg/dL AST (5-31) U/L ALT (0-31) U/L Alkaline Phosphatase (39-117) U/L Troponin I High Sens (<3.5-17.0) ng/L C-Reactive Protein (< or = 0.50) mg/dL Total Protein (6.5-8.0) g/dL Albumin (3.5-5.0) g/dL Urine Color Yellow Urine Appearance Clear Urine pH 6.0 (5.0-8.0) Ur Specific [place] 1.020 (1.005-1.025) Urine Protein 100 (2+) H (Neg-Trace) mg/dL Urine Glucose (UA) Negative (Negative) mg/dL Urine Ketones Negative (Negative) mg/dL Urine Blood Small (1+) H (Negative) Urine Nitrite Negative (Negative) Ur Leukocyte Esterase Negative (Negative) Urine RBC 3-5 H (0-2) /HPF Urine WBC 0-5 (0-5) /HPF Ur Squamous Epith Cells 0-2 (0-2) /HPF Urine Bacteria None Seen (None Seen) Hyaline Casts 0-2 (0-2) /LPF COVID-19 (BOONE) Positive A (Negative) COVID-19 Clin Com See Note 03/26/22 03/26/22 Range/Units 02:10 02:10 WBC (4.8-10.8) X10*3/uL RBC (4.20-5.50) X10*6/uL Hgb (12.0-16.0) g/dl Hct (37.0-47.0) % MCV (80.0-98.0) fL MCH (27.0-33.0) pg MCHC (31.0-35.0) g/dl RDW (11.0-16.0) % Plt Count MPV Immature Gran % (Auto) (0.0-0.4) % Neut % (Auto) (45-73) % Lymph % (Auto) (20-40) % [place] % (Auto) (2-11) % Eos % (Auto) (0-4) % Baso % (Auto) (0-2) % Lymph # (Auto) (1.2-4.9) X10*3/uL [place] # (Auto) (0.1-1.2) X10*3/uL Eos # (Auto) (0.0-0.4) X10*3/uL Baso # (Auto) (0.0-0.2) X10*3/uL Abs Immat Gran (auto) (0.00-0.03) X10*3/uL Absolute Neuts (auto) (2.0-8.3) x10*3/uL Absolute Nucleated RBC (0.0-0.012) X10*3/uL Nucleated RBC % (auto) (0.0-0.2) /100WBC Smear Tech's Comments PT 11.2 (10.0-13.1) SEC INR 1.0 (0.9-1.1) VBG pH (7.32-7.43) VBG pCO2 mmHg VBG pO2 mmHg VBG HCO3 (22-26) mmol/L VBG O2 Saturation % VBG Base Excess mmol/L Sodium 139 (135-145) mmol/L Potassium 3.6 (3.3-5.1) mmol/L Chloride 106 (96-108) mmol/L Carbon Dioxide 23 (22-29) mmol/L Anion Gap 14 (12-20) BUN 8 L (9-16) mg/dL Creatinine 0.60 (0.5-1.4) mg/dL Estim Creat Clear Calc 87.5 Estimated GFR > 60 Random Glucose 109 (60-115) mg/dL Lactic Acid (0.5-2.0) mmol/L Calcium 7.9 L D (8.4-10.2) mg/dL Total Bilirubin < 0.2 (0.0-1.0) mg/dL AST 19 (5-31) U/L ALT 12 (0-31) U/L Alkaline Phosphatase 58 D (39-117) U/L Troponin I High Sens (<3.5-17.0) ng/L C-Reactive Protein 9.09 H (< or = 0.50) mg/dL Total Protein 6.5 (6.5-8.0) g/dL Albumin 3.6 (3.5-5.0) g/dL Urine Color Urine Appearance Urine pH (5.0-8.0) Ur Specific [place] (1.005-1.025) Urine Protein (Neg-Trace) mg/dL Urine Glucose (UA) (Negative) mg/dL Urine Ketones (Negative) mg/dL Urine Blood (Negative) Urine Nitrite (Negative) Ur Leukocyte Esterase (Negative) Urine RBC (0-2) /HPF Urine WBC (0-5) /HPF Ur Squamous Epith Cells (0-2) /HPF Urine Bacteria (None Seen) Hyaline Casts (0-2) /LPF COVID-19 (BOONE) (Negative) COVID-19 Clin Com ECG Data Attestation: I personally reviewed and interpreted this ECG as follows: Prior ECG tracings: available for review Interpretation: Sinus rhythm PACs, HR-98, no STEMI, AK/QRS/QTC are within normal limits. Critical Care Time Critical Care Time Critical Care Time: Yes Total Critical Care Time: 30 Attestation: I personally attest to this time spent taking care of the patient. Discharge Plan Discharge Clinical Impression: Hypoxia, Lab test positive for detection of COVID-19 virus, COPD (chronic obstructive pulmonary disease), Smoker, Substance use Patient Disposition: Admitted As Inpatient
[2022-03-26] MEDS: Acetaminophen 325 MG TABLET 975 MG PO (01:35)
[2022-03-26] MEDS: methylPREDNISolone Sod Succ 125 MG/2 ML VIAL IVPUSH (01:35)
[2022-03-26] MEDS: Ibuprofen 400 MG TABLET PO (01:35)
[2022-03-26 01:56] LABS: Mean Corpuscular HGB Conc 32.3 g/dl (31.0-35.0); PLT CLUMP 1; SCAN SMEAR FLAG 1
[2022-03-26 01:58] LABS: Basophils Percent Auto 0.2 % (0-2); Hemoglobin 12.6 g/dl (12.0-16.0); Imm Gran Abs Auto 0.03 X10*3/uL (0.00-0.03); Imm Gran Pct Auto 0.3 % (0.0-0.4); Lymphocytes Absolute Auto 1.1 X10*3/uL (1.2-4.9); Lymphocytes Percent Auto 12.2 % (20-40); Mean Corpuscular Hemoglobin 28.4 pg (27.0-33.0); Mean Corpuscular Volume 87.8 fL (80.0-98.0); Monocytes Absolute Auto 0.4 X10*3/uL (0.1-1.2); Monocytes Percent Auto 4.6 % (2-11); Neutrophils Absolute Auto 7.3 x10*3/uL (2.0-8.3); Neutrophils Percent Auto 82.7 % (45-73); Red Blood Count 4.44 X10*6/uL (4.20-5.50); Red Cell Distribution Width 15.7 % (11.0-16.0)
[2022-03-26 01:59] LABS: MANUAL DIFF FLAG SCAN
[2022-03-26 02:02] LABS: VBG Base Excess -3.2 mmol/L; VBG HCO3 19 mmol/L (22-26); VBG pCO2 27 mmHg; VBG pH 7.45 (7.32-7.43); VBG pO2 132 mmHg
[2022-03-26 02:03] LABS: COVID-19 Test Positive (Negative)
[2022-03-26 02:04] LABS: Venous Blood Gas Refer to POC result
[2022-03-26 02:05] LABS: Lactic Acid 0.9 mmol/L (0.5-2.0)
[2022-03-26 02:15] LABS: Troponin-I High Sensitivity 5.1 ng/L (<3.5-17.0)
[2022-03-26 02:18] LABS: Appearance Urine Clear; Color Urine Yellow; Glucose Urine UA Negative (Negative); Leukocyte Esterase Urine Negative (Negative); Nitrite Urine Negative (Negative); Urine Blood Small (1+) (Negative); Urine Ketones Negative (Negative); Urine Protein 100 (2+) mg/dL (Neg-Trace)
[2022-03-26] MEDS: Albuterol Sulfate (0.083%) 2.5 MG/3 ML VIAL.NEB 5 MG INHALE (02:24)
[2022-03-26 02:25] LABS: White Blood Count 8.9 X10*3/uL (4.8-10.8)
[2022-03-26 02:26] LABS: SLIDE REVIEW VERIFIED
[2022-03-26 02:32] LABS: Prothrombin Time 11.2 SEC (10.0-13.1)
[2022-03-26 02:37] LABS: Alanine Aminotransferase 12 U/L (0-31); Albumin Level 3.6 g/dL (3.5-5.0); Alkaline Phosphatase 58 U/L (39-117); Anion Gap 14 (12-20); Aspartate Amino Transferase 19 U/L (5-31); Bilirubin Total < 0.2 mg/dL (0.0-1.0); Blood Urea Nitrogen 8 mg/dL (9-16); Calcium 7.9 mg/dL (8.4-10.2); Carbon Dioxide 23 mmol/L (22-29); Chloride 106 mmol/L (96-108); Creatinine Clr Calc Pharmacy 87.5; Estimated Glomerular Filt Rate > 60; Glucose Random 109 mg/dL (60-115); Potassium 3.6 mmol/L (3.3-5.1); Sodium 139 mmol/L (135-145); Total Protein 6.5 g/dL (6.5-8.0)
[2022-03-26 02:38] LABS: C Reactive Protein 9.09 mg/dL (< or = 0.50)
[2022-03-26 02:39] LABS: Bacteria Urine None Seen (None Seen); Hyaline Casts Urine 0-2 /LPF (0-2); Squamous Epithelial Cell Urine 0-2 /HPF (0-2); WBC Urine 0-5 /HPF (0-5)
[2022-03-26 03:05] LABS: Procalcitonin 0.17 ng/mL
[2022-03-26] MEDS: Nicotine 21 MG PATCH.TD24 TRANSDERMA (04:31)
--- NOTE | 2022-03-26 05:45 | P.HPHOSP_ITS ---
History of Present Illness Date of Service: 03/26/22 Chief Complaint: SOB 52-year-old female with past medical history of IV drug use, history of COPD, CVA, depression, GERD, presents to the hospital complaints of shortness of breath, cough, well as chills for the past week and a half. Patient reports her symptoms worsened today, she has had significant difficulty in breathing. When asked her if she was vaccinated against COVID she behaved in a manner to indicate that she is unaware of the vaccine and she is not sure she has ever been vaccinated. Patient denies any headache, no change in vision, patient reports chest pain with coughing, all over chest, no nausea no vomiting, has had 2-3 episodes of diarrhea with hemorrhoidal bleed, denies any abdominal pain, no urinary symptoms and no lower extremity edema. On arrival to the ED patient was found to be hypoxic satting in the 80s, currently on 3 L satting 95%, vitals otherwise unremarkable Labs reviewed show WBC count of 8.9, pH of 7.45, CO2 of 19, bicarb of 23, UA positive for blood, COVID-19 infection positive, labs otherwise unremarkable chest x-ray shows no dense consolidation, bronchial wall thickening can be seen with small airways process such as asthma or atypical viral infection patient admitted for further management Review of Systems Review of Systems: Yes all other systems are reviewed and are negative [facility] Medical History (Updated 03/26/22 @ 05:51 by Rohit Sibley MD) Chronic idiopathic constipation Chronic knee pain Chronic low back pain COPD (chronic obstructive pulmonary disease) Depression GERD (gastroesophageal reflux disease) History of CVA (cerebrovascular accident) Insomnia Mixed stress and urge incontinence Smoker Substance use Surgical History (Updated 03/26/22 @ 05:51 by Rohit Sibley MD) No pertinent past surgical history Social History Alcohol intake: unknown Advance Directives: No Meds Allergies Allergy/AdvReac Type Severity Reaction Status Date / Time No Known Allergies Allergy Verified 11/16/20 10:49 [No Known Allergies*] Active Medications: Current Medications Pharmacy Consult (Consult Rx Perform Med Rec) 1 each MISCELLANE ONCE PRN PRN Reason: Consult order Home Medications Medication Instructions Recorded Confirmed Last Taken Type doxycycline hyclate 100 mg capsule 1 cap PO BID 11/26/20 11/26/20 Unknown History fluticasone propionate 220 2 puff PO BID 11/26/20 11/26/20 Unknown History mcg/actuation HFA aerosol inhaler (Flovent HFA) fluticasone propionate 50 2 spray intranasal QAM 11/26/20 11/26/20 Unknown History mcg/actuation nasal spray,suspension levofloxacin 750 mg tablet 1 tab PO DAILY 11/26/20 11/26/20 Unknown History melatonin 3 mg tablet 1 tab PO BEDTIME PRN Sleep 11/26/20 11/26/20 Unknown His tory pregabalin 200 mg capsule 1 cap PO TID 11/26/20 11/26/20 Unknown History tiotropium bromide 18 mcg capsule 1 cap inhalation DAILY 11/26/20 11/26/20 Unknown History with inhalation device (Spiriva with HandiHaler) Physical Exam Vital Signs and Narrative: Vital Signs: Last Vital Signs Temp 98.2 F 03/26/22 01:02 Pulse 85 03/26/22 04:27 Resp 18 03/26/22 04:27 BP 100/59 L 03/26/22 04:27 Pulse Ox 95 03/26/22 04:27 O2 Del Method 03/26/22 04:27 O2 Flow Rate 3 03/26/22 04:27 Oxygen Flow Rate 4 03/26/22 01:02 BMI result Body Mass Index 28.0 Const: General: cooperative and no acute distress Orientation/consciousness: patient oriented x3 Eyes: General: appearance normal, both eyes and all related structures Pupils: Equal, round and reactive pupils present Resp: Other: expiratory wheezing Effort & Inspection: normal respiratory effort Cardio: Rate: regular rate Rhythm: regular rhythm GI: Palpation (GI): Soft to palpation Auscultation: normal bowel sounds Skin: General skin exam: no rashes or lesions noted Neuro: General: patient oriented x3 Cranial nerves: Yes Equal, round and reactive pupils present Cognition (Neuro): normal cognition Extrem: General: Yes normal to inspection and Yes no pedal edema Results Labs CBC and Chem 7: 03/26/22 01:46 03/26/22 02:10 Labs: Laboratory Results - last 24 hr 03/26/22 03/26/22 03/26/22 01:46 01:47 01:48 MCV 87.8 MCH 28.4 MCHC 32.3 RDW 15.7 Plt Count Not Reportable MPV Not Reportable Immature Gran % (Auto) 0.3 Neut % (Auto) 82.7 H Lymph % (Auto) 12.2 L [place] % (Auto) 4.6 Eos % (Auto) 0.0 Baso % (Auto) 0.2 Lymph # (Auto) 1.1 L [place] # (Auto) 0.4 Eos # (Auto) 0.0 Baso # (Auto) 0.0 Abs Immat Gran (auto) 0.03 Absolute Neuts (auto) 7.3 Absolute Nucleated RBC 0.000 Nucleated RBC % (auto) 0.0 Smear Tech's Comments VERIFIED PT INR VBG pH VBG pCO2 VBG pO2 VBG HCO3 VBG O2 Saturation VBG Base Excess Anion Gap Estim Creat Clear Calc Estimated GFR Random Glucose Lactic Acid 0.9 Calcium Total Bilirubin AST ALT Alkaline Phosphatase C-Reactive Protein Total Protein Albumin Procalcitonin Urine Color Urine Appearance Urine pH Ur Specific [place] Urine Protein Urine Glucose (UA) Urine Ketones Urine Blood Urine Nitrite Ur Leukocyte Esterase Urine RBC Urine WBC Ur Squamous Epith Cells Urine Bacteria Hyaline Casts COVID-19 (BOONE) Positive A COVID-19 Clin Com See Note 03/26/22 03/26/22 03/26/22 01:56 02:04 02:10 MCV MCH MCHC RDW Plt Count MPV Immature Gran % (Auto) Neut % (Auto) Lymph % (Auto) [place] % (Auto) Eos % (Auto) Baso % (Auto) Lymph # (Auto) [place] # (Auto) Eos # (Auto) Baso # (Auto) Abs Immat Gran (auto) Absolute Neuts (auto) Absolute Nucleated RBC Nucleated RBC % (auto) Smear Tech's Comments PT 11.2 INR 1.0 VBG pH 7.45 H VBG pCO2 27 VBG pO2 132 VBG HCO3 19 L VBG O2 Saturation 99.0 VBG Base Excess -3.2 Anion Gap Estim Creat Clear Calc Estimated GFR Random Glucose Lactic Acid Calcium Total Bilirubin AST ALT Alkaline Phosphatase C-Reactive Protein Total Protein Albumin Procalcitonin Urine Color Yellow Urine Appearance Clear Urine pH 6.0 Ur Specific [place] 1.020 Urine Protein 100 (2+) H Urine Glucose (UA) Negative Urine Ketones Negative Urine Blood Small (1+) H Urine Nitrite Negative Ur Leukocyte Esterase Negative Urine RBC 3-5 H Urine WBC 0-5 Ur Squamous Epith Cells 0-2 Urine Bacteria None Seen Hyaline Casts 0-2 COVID-19 (BOONE) COVID-19 Clin Com 03/26/22 03/26/22 02:10 02:10 MCV MCH MCHC RDW Plt Count MPV Immature Gran % (Auto) Neut % (Auto) Lymph % (Auto) [place] % (Auto) Eos % (Auto) Baso % (Auto) Lymph # (Auto) [place] # (Auto) Eos # (Auto) Baso # (Auto) Abs Immat Gran (auto) Absolute Neuts (auto) Absolute Nucleated RBC Nucleated RBC % (auto) Smear Tech's Comments PT INR VBG pH VBG pCO2 VBG pO2 VBG HCO3 VBG O2 Saturation VBG Base Excess Anion Gap 14 Estim Creat Clear Calc 87.5 Estimated GFR > 60 Random Glucose 109 Lactic Acid Calcium 7.9 L D Total Bilirubin < 0.2 AST 19 ALT 12 Alkaline Phosphatase 58 D C-Reactive Protein 9.09 H Total Protein 6.5 Albumin 3.6 Procalcitonin 0.17 Urine Color Urine Appearance Urine pH Ur Specific [place] Urine Protein Urine Glucose (UA) Urine Ketones Urine Blood Urine Nitrite Ur Leukocyte Esterase Urine RBC Urine WBC Ur Squamous Epith Cells Urine Bacteria Hyaline Casts COVID-19 (BOONE) COVID-19 Clin Com Imaging Radiologist's Impressions: Impressions Chest X-Ray 03/26/22 01:24 IMPRESSION: No dense consolidation. Bronchial wall thickening can be seen with a small airways process such as asthma or atypical/viral infection. Assessment and Plan (1) Acute respiratory failure with hypoxia: Status: Acute (2) COVID-19 virus infection: Status: Acute Plan 52-year-old female with past medical history of COPD presents the hospital shortness of breath found to have COVID-19 pneumonia and hypoxia # acute hypoxic respiratory failure - secondary to COVID-19 pneumonia as well as underlying COPD - patient found to be in the 80s on room air - no on 3 L satting 94% - will start patient on dexamethasone, - monitor respiratory status # COVID-19 infection - no evidence of superimposed bacterial infection - has no leukocytosis, procalcitonin low - will treat with dexamethasone given the hypoxia - monitor respiratory status # acute COPD exacerbation - has cough, wheezing - in the setting of COVID-19 infection - will treat with steroids, p.r.n. DuoNeb DVT prophylaxis: Lovenox given the hypoxic respiratory failure patient required minimum 2 night hospital stay for further management and evaluation Quality Stroke Does the patient have a stroke diagnosis?: No VTE Prior VTE?: No VTE Risk Level:: Medical - moderate - high VTE Device Contraindication: Treatment Not Indicated VTE Drug Contraindication: N/A - Med Ordered
[2022-03-26 06:19] LABS: Basophils Percent Auto 0.1 % (0-2); Hematocrit 37.7 % (37.0-47.0); Hemoglobin 12.2 g/dl (12.0-16.0); Imm Gran Abs Auto 0.05 X10*3/uL (0.00-0.03); Imm Gran Pct Auto 0.5 % (0.0-0.4); Lymphocytes Absolute Auto 0.4 X10*3/uL (1.2-4.9); Lymphocytes Percent Auto 4.5 % (20-40); MANUAL DIFF FLAG SCAN; Mean Corpuscular HGB Conc 32.4 g/dl (31.0-35.0); Mean Corpuscular Hemoglobin 28.6 pg (27.0-33.0); Mean Corpuscular Volume 88.5 fL (80.0-98.0); Mean Platelet Volume 10.7 fL (9.4-12.3); Monocytes Absolute Auto 0.1 X10*3/uL (0.1-1.2); Monocytes Percent Auto 1.3 % (2-11); Neutrophils Absolute Auto 8.8 x10*3/uL (2.0-8.3); Neutrophils Percent Auto 93.6 % (45-73); Platelet Count 167 X10*3/uL (160-400); Red Blood Count 4.26 X10*6/uL (4.20-5.50); Red Cell Distribution Width 15.8 % (11.0-16.0); SCAN SMEAR FLAG 1; White Blood Count 9.4 X10*3/uL (4.8-10.8)
[2022-03-26 06:36] LABS: Anion Gap 14 (12-20); Blood Urea Nitrogen 9 mg/dL (9-16); Calcium 8.4 mg/dL (8.4-10.2); Carbon Dioxide 23 mmol/L (22-29); Chloride 108 mmol/L (96-108); Creatinine Clr Calc Pharmacy 83.3; Estimated Glomerular Filt Rate > 60; Glucose Random 181 mg/dL (60-115); Potassium 3.4 mmol/L (3.3-5.1); Sodium 142 mmol/L (135-145)
[2022-03-26] MEDS: Enoxaparin Sodium 40 MG/0.4 ML SYRINGE SUBCUT (06:46)
[2022-03-26] MEDS: dexAMETHasone sod phosphate 4 MG/ML VIAL 6 MG IVPUSH (08:25)
[2022-03-26] MEDS: 0.9 % Sodium Chloride Flush 3 ML SYRINGE IVFLUSH ×2 (08:25→16:07)
--- NOTE | 2022-03-26 10:26 | PHA.MEDREC ---
Pharmacy Consult ? Medication Reconciliation Pharmacy has completed the medication reconciliation. Patient was a poor historian of medications, used claim history to verify current meds. Patient had advair with them, confirmed.
--- NOTE | 2022-03-26 11:53 | MHC.RECOVRN ---
Met with pt in ED 16 to discuss substance use and assess for withdrawal. Upon entering room, pt asleep, wakes to voice. Pt reports using heroin, 1 bundle daily, [place], last use yesterday morning. Denies other substances. Pt wincing during conversation, reports chills and abdominal pain. Pt appears slightly diaphoretic. Pt states I need a pill to help me relax, can you help me? Pt denies ever receiving methadone or Suboxone. Pt difficult to engage in conversation further. Discussed with RN as well as Deyanira Anaya APRN.
[2022-03-26 12:55] LABS: Amphetamine Screen Urine Not Detected (Not Detect); Barbiturates, Urine Not Detected (Not Detect); Benzodiazepines Screen Urine Not Detected (Not Detect); Cannabinoid Screen Urine POSITIVE (Not Detect); Cocaine Screen Urine POSITIVE (Not Detect); Fentanyl, urine POSITIVE (Not Detect); Opiate Screen Urine POSITIVE (Not Detect); Phencyclidine Screen Urine Not Detected (Not Detect)
[2022-03-26] MEDS: methADONE HCl 20 MG/2 ML ORAL.CONC 10 MG PO ×3 (12:56→20:47)
--- NOTE | 2022-03-26 14:39 | HO.PM.IMPN ---
Subjective Subjective Date of Service: 03/26/22 Interval History: seen and examined this morning follow up for COVID-19, COPD exacerbation no sob at this time, still requiring supplemental oxygen Denies fever, chills. Denies any recent sick contacts Review of Systems Review of Systems: Yes all other systems are reviewed and are negative Constitutional Constitutional: Reports body ache(s), Denies chills and Denies fever(s) Cardiovascular Cardiovascular: Denies chest pain, Denies palpitations and Denies dyspnea Respiratory Respiratory: Reports cough and Denies dyspnea Endocrine Endocrine: Denies palpitations Physical Exam Vital Signs: Vital Signs: Last Vital Signs Temp 97.5 F 03/26/22 07:45 Pulse 72 03/26/22 07:45 Resp 12 03/26/22 07:45 BP 121/69 03/26/22 07:45 Pulse Ox 100 03/26/22 07:45 O2 Del Method 03/26/22 07:45 O2 Flow Rate 3 03/26/22 07:45 Oxygen Flow Rate 4 03/26/22 01:02 BMI result Body Mass Index 28.0 Const: General: comfortable, no acute distress, alert and awake Nutritional Appearance: average body habitus Resp: Effort & Inspection: normal respiratory effort, able to speak in complete sentences and no use of accessory muscles Cardio: Rate: regular rate Heart sounds: S1 normal heart sound present and S2 normal heart sound present GI: Inspection: No distended Palpation (GI): Soft to palpation and nontender Extrem: General: Yes no pedal edema Objective Data Active Medications Acetaminophen (Acetaminophen 325 Mg Tablet) 650 mg PO Q6H PRN PRN Reason: Pain, Mild (Pain Scale 1-3) Albuterol/Ipratropium (Albuterol/Iprat 2.5/0.5mg 3 Ml Ampul.Neb) 3 ml INHALE RQ4H PRN PRN Reason: Shortness of Breath/Wheezing Dexamethasone Sodium Phosphate (Dexamethasone Sod Phosphate 4 Mg/Ml Vial) 6 mg IVPUSH DAILY [facility] Last Admin: 03/26/22 08:25 Dose: 6 mg Documented By: LUIS MNAUEL Docusate Sodium (Docusate Sodium 100 Mg Capsule) 100 mg PO DAILY PRN PRN Reason: Constipation Enoxaparin Sodium (Enoxaparin Sodium 40 Mg/0.4 Ml Syringe) 40 mg SUBCUT Q24H [facility] Last Admin: 03/26/22 06:46 Dose: 40 mg Documented By: GISELL Methadone HCl (Methadone Hcl 20 Mg/2 Ml Oral.Conc) 10 mg PO Q4H PRN PRN Reason: Opiate Withdrawal Last Admin: 03/26/22 12:56 Dose: 10 mg Documented By: LUIS MANUEL Ondansetron HCl (Ondansetron Hcl 4 Mg/2 Ml Vial) 4 mg IVPUSH Q8H PRN PRN Reason: Nausea and Vomiting Pharmacy Consult (Consult Rx Perform Med Rec) 1 each MISCELLANE ONCE PRN PRN Reason: Consult order Sodium Chloride (0.9 % Sodium Chloride Flush 3 Ml Syringe) [facility] Last Admin: 03/26/22 08:25 Dose: 3 ml Documented By: LUIS MANUEL Labs CBC & Chem 7: 03/26/22 06:09 03/26/22 06:09 Labs: Laboratory Results - last 24 hr 03/26/22 03/26/22 03/26/22 01:46 01:47 01:48 MCV 87.8 MCH 28.4 MCHC 32.3 RDW 15.7 Plt Count Not Reportable MPV Not Reportable Immature Gran % (Auto) 0.3 Neut % (Auto) 82.7 H Lymph % (Auto) 12.2 L [place] % (Auto) 4.6 Eos % (Auto) 0.0 Baso % (Auto) 0.2 Lymph # (Auto) 1.1 L [place] # (Auto) 0.4 Eos # (Auto) 0.0 Baso # (Auto) 0.0 Abs Immat Gran (auto) 0.03 Absolute Neuts (auto) 7.3 Absolute Nucleated RBC 0.000 Nucleated RBC % (auto) 0.0 Smear Tech's Comments VERIFIED PT INR VBG pH VBG pCO2 VBG pO2 VBG HCO3 VBG O2 Saturation VBG Base Excess Anion Gap Estim Creat Clear Calc Estimated GFR Random Glucose Lactic Acid 0.9 Calcium Total Bilirubin AST ALT Alkaline Phosphatase C-Reactive Protein Total Protein Albumin Procalcitonin Urine Color Urine Appearance Urine pH Ur Specific [place] Urine Protein Urine Glucose (UA) Urine Ketones Urine Blood Urine Nitrite Ur Leukocyte Esterase Urine RBC Urine WBC Ur Squamous Epith Cells Urine Bacteria Hyaline Casts Urine Opiates Screen Urine Fentanyl Screen Ur Barbiturates Screen Ur Phencyclidine Scrn Ur Amphetamines Screen U Benzodiazepines Scrn Urine Cocaine Screen U Marijuana (THC) Screen COVID-19 (BOONE) Positive A COVID-19 [employer] Com See Note 03/26/22 03/26/22 03/26/22 01:56 02:04 02:04 MCV MCH MCHC RDW Plt Count MPV Immature Gran % (Auto) Neut % (Auto) Lymph % (Auto) [place] % (Auto) Eos % (Auto) Baso % (Auto) Lymph # (Auto) [place] # (Auto) Eos # (Auto) Baso # (Auto) Abs Immat Gran (auto) Absolute Neuts (auto) Absolute Nucleated RBC Nucleated RBC % (auto) Smear Tech's Comments PT INR VBG pH 7.45 H VBG pCO2 27 VBG pO2 132 VBG HCO3 19 L VBG O2 Saturation 99.0 VBG Base Excess -3.2 Anion Gap Estim Creat Clear Calc Estimated GFR Random Glucose Lactic Acid Calcium Total Bilirubin AST ALT Alkaline Phosphatase C-Reactive Protein Total Protein Albumin Procalcitonin Urine Color Yellow Urine Appearance Clear Urine pH 6.0 Ur Specific [place] 1.020 Urine Protein 100 (2+) H Urine Glucose (UA) Negative Urine Ketones Negative Urine Blood Small (1+) H Urine Nitrite Negative Ur Leukocyte Esterase Negative Urine RBC 3-5 H Urine WBC 0-5 Ur Squamous Epith Cells 0-2 Urine Bacteria None Seen Hyaline Casts 0-2 Urine Opiates Screen POSITIVE H Urine Fentanyl Screen POSITIVE H Ur Barbiturates Screen Not Detected Ur Phencyclidine Scrn Not Detected Ur Amphetamines Screen Not Detected U Benzodiazepines Scrn Not Detected Urine Cocaine Screen POSITIVE H U Marijuana (THC) Screen POSITIVE H COVID-19 (BOONE) COVID-19 [employer] Com 03/26/22 03/26/22 03/26/22 02:10 02:10 02:10 MCV MCH MCHC RDW Plt Count MPV Immature Gran % (Auto) Neut % (Auto) Lymph % (Auto) [place] % (Auto) Eos % (Auto) Baso % (Auto) Lymph # (Auto) [place] # (Auto) Eos # (Auto) Baso # (Auto) Abs Immat Gran (auto) Absolute Neuts (auto) Absolute Nucleated RBC Nucleated RBC % (auto) Smear Tech's Comments PT 11.2 INR 1.0 VBG pH VBG pCO2 VBG pO2 VBG HCO3 VBG O2 Saturation VBG Base Excess Anion Gap 14 Estim Creat Clear Calc 87.5 Estimated GFR > 60 Random Glucose 109 Lactic Acid Calcium 7.9 L D Total Bilirubin < 0.2 AST 19 ALT 12 Alkaline Phosphatase 58 D C-Reactive Protein 9.09 H Total Protein 6.5 Albumin 3.6 Procalcitonin 0.17 Urine Color Urine Appearance Urine pH Ur Specific [place] Urine Protein Urine Glucose (UA) Urine Ketones Urine Blood Urine Nitrite Ur Leukocyte Esterase Urine RBC Urine WBC Ur Squamous Epith Cells Urine Bacteria Hyaline Casts Urine Opiates Screen Urine Fentanyl Screen Ur Barbiturates Screen Ur Phencyclidine Scrn Ur Amphetamines Screen U Benzodiazepines Scrn Urine Cocaine Screen U Marijuana (THC) Screen COVID-19 (BOONE) COVID-19 Clin Com 03/26/22 03/26/22 06:09 06:09 MCV 88.5 MCH 28.6 MCHC 32.4 RDW 15.8 Plt Count 167 MPV 10.7 Immature Gran % (Auto) 0.5 H Neut % (Auto) 93.6 H Lymph % (Auto) 4.5 L [place] % (Auto) 1.3 L Eos % (Auto) 0.0 Baso % (Auto) 0.1 Lymph # (Auto) 0.4 L [place] # (Auto) 0.1 Eos # (Auto) 0.0 Baso # (Auto) 0.0 Abs Immat Gran (auto) 0.05 H Absolute Neuts (auto) 8.8 H Absolute Nucleated RBC 0.000 Nucleated RBC % (auto) 0.0 Smear Tech's Comments PT INR VBG pH VBG pCO2 VBG pO2 VBG HCO3 VBG O2 Saturation VBG Base Excess Anion Gap 14 Estim Creat Clear Calc 83.3 Estimated GFR > 60 Random Glucose 181 H Lactic Acid Calcium 8.4 D Total Bilirubin AST ALT Alkaline Phosphatase C-Reactive Protein Total Protein Albumin Procalcitonin Urine Color Urine Appearance Urine pH Ur Specific [place] Urine Protein Urine Glucose (UA) Urine Ketones Urine Blood Urine Nitrite Ur Leukocyte Esterase Urine RBC Urine WBC Ur Squamous Epith Cells Urine Bacteria Hyaline Casts Urine Opiates Screen Urine Fentanyl Screen Ur Barbiturates Screen Ur Phencyclidine Scrn Ur Amphetamines Screen U Benzodiazepines Scrn Urine Cocaine Screen U Marijuana (THC) Screen COVID-19 (BOONE) COVID-19 Clin Com Assessment and Plan (1) COVID-19 virus infection: Status: Acute (2) Acute respiratory failure with hypoxia: Status: Acute Plan 52-year-old female with past medical history of COPD presents the hospital shortness of breath found to have COVID-19 pneumonia and hypoxia acute hypoxic respiratory failure secondary to COVID-19 pneumonia as well as underlying COPD initially in the 80s on room air - continue dexamethasone - monitor respiratory status, wean o2 as tolerated COVID-19 infection no evidence of superimposed bacterial infection has no leukocytosis, procalcitonin low - will treat with dexamethasone given the hypoxia - monitor respiratory status acute COPD exacerbation - has cough, wheezing - in the setting of COVID-19 infection - will treat with steroids, p.r.n. DuoNeb DVT prophylaxis: Lovenox attending - dr. reyes patient requires ongoing inpatient hospitalization for management of COVID-19, supplemental oxygen IV steroids Quality Stroke Does the patient have a stroke diagnosis?: No VTE Prior VTE?: No VTE Risk Level:: Medical - moderate - high VTE Device Contraindication: Treatment Not Indicated VTE Drug Contraindication: N/A - Med Ordered
[2022-03-26] MEDS: Pregabalin 200 MG CAPSULE PO ×2 (17:08→20:43)
--- NOTE | 2022-03-26 19:20 | PC.NURSE ---
THIS NURSE HAS NOW ASSUMED CARE OF THIS PT
[2022-03-26] MEDS: Acetaminophen 325 MG TABLET 650 MG PO (20:42)
[2022-03-26] MEDS: Melatonin 3 MG TABLET 9 MG PO (20:43)
[2022-03-26] MEDS: ondansetron HCL 4 MG/2 ML VIAL IVPUSH (20:44)
--- NOTE | 2022-03-26 21:02 | PC.NURSE ---
pt medicated per MAR with scheduled medications and PRNs as requested, pt is a.ox3, vss, pt tolerating PO with no issues. Requesting turkey sandwich and beverage. Pt given food, call light within reach and bed locked in lowest position. Will continue to monitor pt
[2022-03-26] MEDS: Lidocaine 4 % Patch ADH..PATCH 1 PATCH TRANSDERMA (23:22)
[2022-03-26] MEDS: Nicotine Polacrilex 2 MG GUM BUCCAL (23:23)
--- NOTE | 2022-03-26 23:26 | PC.NURSE ---
pt yelling cursing in her room asking for her nighttime medications, pt advised multiple times she already rec'd everything that was due. Pt states oh well i take a medication that begins with an m and when am i going to get a room, i cant sleep down here . pt advised she was given melatonin per oct orders, pt also advised we are still waiting for a bed assignment. Pt proceeds to request pain medication for her right leg pain. Pt given lidocaine patch and placed on right thigh. Pt given reassurance multiple times, pt frustrations acknowledged and advised we are doing what we can to make her comfortable.
[2022-03-27 00:24] VITALS: BP 130/84; PULSE 48; RESP 20; TEMP 36.7; O2SAT 100
--- NOTE | 2022-03-27 02:36 | PC.NURSE ---
pt asleep resting comfortably, no acute distress, resp effort unlabored reg no use of accessory muscles present, pt has call light within reach, bed locked in lowest position. Will continue to monitor pt at this time
[2022-03-27 04:11] VITALS: BP 156/95; PULSE 49; RESP 20; O2SAT 97
[2022-03-27] MEDS: ondansetron HCL 4 MG/2 ML VIAL IVPUSH ×2 (04:32→12:21)
[2022-03-27] MEDS: methADONE HCl 5 MG TABLET PO (05:36)
[2022-03-27 07:01] LABS: C Reactive Protein 7.08 mg/dL (< or = 0.50); Lactate Dehydrogenase 222 U/L (122-220)
[2022-03-27 07:25] LABS: Ferritin 192 ng/mL (10-250)
--- NOTE | 2022-03-27 07:27 | PC.NURSE ---
Assumed care of pt at this time, pt states she is SOB but comfortably drinking juice at this time, O2 sat 98% on 4L NC, pt asking for breathing treatment, Resp made aware. Call rodriguez within reach. Will continue to monitor.
[2022-03-27] MEDS: Albuterol/Iprat 2.5/0.5MG 3 ML AMPUL.NEB INHALE (07:38)
[2022-03-27 07:43] VITALS: PULSE 55; RESP 16; O2SAT 99
[2022-03-27] MEDS: dexAMETHasone sod phosphate 4 MG/ML VIAL 6 MG IVPUSH (08:30)
[2022-03-27] MEDS: Pregabalin 200 MG CAPSULE PO ×3 (08:30→20:40)
[2022-03-27] MEDS: Escitalopram Oxalate 5 MG TABLET PO (08:30)
[2022-03-27 08:32] VITALS: BP 136/89; PULSE 66; RESP 16; O2SAT 98
--- NOTE | 2022-03-27 08:35 | PC.NURSE ---
Pt LCA, VSS, sat 98% on 2L NC, O2 turned off by this RN for room air trial. Call rodriguez within reach. Will continue to monitor.
[2022-03-27] MEDS: Acetaminophen 325 MG TABLET 650 MG PO (12:21)
--- NOTE | 2022-03-27 12:33 | HO.PM.IMPN ---
Subjective Subjective Date of Service: 03/27/22 Interval History: seen and examined this morning Follow-up for COVID-19/ COPD exacerbation Reports that she feels like she is withdrawing today has had intermittent vomiting, no abdominal pain Review of Systems Review of Systems: Yes all other systems are reviewed and are negative Constitutional Constitutional: Denies chills and Denies fever(s) Cardiovascular Cardiovascular: Denies chest pain, Denies palpitations and Denies dyspnea Respiratory Respiratory: Reports cough and Denies dyspnea Gastrointestinal Gastrointestinal: Denies abdominal pain, Reports nausea and Reports vomiting Endocrine Endocrine: Denies palpitations Physical Exam Vital Signs: Vital Signs: Last Vital Signs Temp 98.1 F 03/27/22 00:24 Pulse 66 03/27/22 08:32 Resp 16 03/27/22 08:32 BP 136/89 03/27/22 08:32 Pulse Ox 98 03/27/22 08:32 O2 Del Method 03/27/22 08:32 O2 Flow Rate 2 03/27/22 08:32 Oxygen Flow Rate 2 03/26/22 20:58 BMI result Body Mass Index 28.0 Const: General: alert and awake Nutritional Appearance: average body habitus Resp: Other: coarse breath sounds bilaterally, scattered expiratory wheezing Effort & Inspection: normal respiratory effort, able to speak in complete sentences and no use of accessory muscles Cardio: Rate: regular rate Heart sounds: S1 normal heart sound present and S2 normal heart sound present GI: Inspection: No distended Palpation (GI): Soft to palpation and nontender Extrem: General: Yes no pedal edema Objective Data Active Medications Acetaminophen (Acetaminophen 325 Mg Tablet) 650 mg PO Q6H PRN PRN Reason: Pain, Mild (Pain Scale 1-3) Last Admin: 03/27/22 12:21 Dose: 650 mg Documented By: GIN Albuterol/Ipratropium (Albuterol/Iprat 2.5/0.5mg 3 Ml Ampul.Neb) 3 ml INHALE RQ4H PRN PRN Reason: Shortness of Breath/Wheezing Last Admin: 03/27/22 07:38 Dose: 3 ml Documented By: DARVIN Dexamethasone Sodium Phosphate (Dexamethasone Sod Phosphate 4 Mg/Ml Vial) 6 mg IVPUSH DAILY CALLIE Last Admin: 03/27/22 08:30 Dose: 6 mg Documented By: GIN Docusate Sodium (Docusate Sodium 100 Mg Capsule) 100 mg PO DAILY PRN PRN Reason: Constipation Enoxaparin Sodium (Enoxaparin Sodium 40 Mg/0.4 Ml Syringe) 40 mg SUBCUT Q24H [facility] Last Admin: 03/27/22 07:23 Dose: Not Given Documented By: GIN Non-Admin Reason: Patient Refused Escitalopram Oxalate (Escitalopram Oxalate 5 Mg Tablet) 5 mg PO DAILY [facility] Last Admin: 03/27/22 08:30 Dose: 5 mg Documented By: GIN Fluticasone Propionate (Fluticasone Propionate Nasal 16 Gm [place]) 2 spray NOSTRIL-B DAILY [facility] Last Admin: 03/27/22 08:36 Dose: Not Given Documented By: GIN Non-Admin Reason: Patient Refused Fluticasone/Vilanterol (Fluticasone/Vilanterol 100/25 Blst.W.Dev) 1 puff INHALE RDAILY [facility] Last Admin: 03/27/22 07:42 Dose: Not Given Documented By: DARVIN Non-Admin Reason: Med Not Available Lidocaine (Lidocaine 4 % Patch Adh..Patch) 1 patch TRANSDERMA Q24H PRN PRN Reason: Pain Last Admin: 03/26/22 23:22 Dose: 1 patch Documented By: NALLELY Melatonin (Melatonin 3 Mg Tablet) 9 mg PO BEDTIME [facility] Last Admin: 03/26/22 20:43 Dose: 9 mg Documented By: NALLELY Nicotine Polacrilex (Nicotine Polacrilex 2 Mg Gum) 2 mg BUCCAL Q2H PRN PRN Reason: Nicotine Cravings Last Admin: 03/26/22 23:23 Dose: 2 mg Documented By: NALLELY Ondansetron HCl (Ondansetron Hcl 4 Mg/2 Ml Vial) 4 mg IVPUSH Q8H PRN PRN Reason: Nausea and Vomiting Last Admin: 03/27/22 12:21 Dose: 4 mg Documented By: GIN Pharmacy Consult (Consult Rx Perform Med Rec) 1 each MISCELLANE ONCE PRN PRN Reason: Consult order Pregabalin (Pregabalin 200 Mg Capsule) 200 mg PO TID [facility] Last Admin: 03/27/22 08:30 Dose: 200 mg Documented By: GIN Sodium Chloride (0.9 % Sodium Chloride Flush 3 Ml Syringe) 3 ml IVFLUSH QSHIFT CALLIE Last Admin: 03/27/22 07:23 Dose: Not Given Documented By: GIN Non-Admin Reason: IV Running Labs CBC & Chem 7: 03/26/22 06:09 03/26/22 06:09 Labs: Laboratory Results - last 24 hr 03/26/22 03/27/22 02:04 06:37 Ferritin 192 Lactate Dehydrogenase 222 H C-Reactive Protein 7.08 H Urine Opiates Screen POSITIVE H Urine Fentanyl Screen POSITIVE H Ur Barbiturates Screen Not Detected Ur Phencyclidine Scrn Not Detected Ur Amphetamines Screen Not Detected U Benzodiazepines Scrn Not Detected Urine Cocaine Screen POSITIVE H U Marijuana (THC) Screen POSITIVE H Microbiology Microbiology Results: Microbiology 03/26/22 01:46 Blood Culture - Preliminary Blood - Venous No growth after 24 hours. 03/26/22 01:46 Blood Culture - Preliminary Blood - Venous No growth after 24 hours. Assessment and Plan (1) COVID-19 virus infection: Status: Acute (2) Acute respiratory failure with hypoxia: Status: Acute Plan 52-year-old female with past medical history of COPD presents the hospital shortness of breath found to have COVID-19 pneumonia and hypoxia acute hypoxic respiratory failure secondary to COVID-19 pneumonia and COPD initially in the 80s on room air, now down to 2L NC - continue dexamethasone - monitor respiratory status, wean o2 as tolerated COVID-19 infection no evidence of superimposed bacterial infection has no leukocytosis, procalcitonin low inflammatory markers trending down - Continue IV dexamethasone - monitor respiratory status acute COPD exacerbation - will treat with steroids, p.r.n. DuoNeb - continue home Breo, Flonase OUD seen by addiction medicine, received methadone yesterday - will see in follow up today to develop ongoing treatment plan mood Continue Lexapro, Lyrica DVT prophylaxis: Lovenox attending - dr. reyes patient requires ongoing inpatient hospitalization for management of COVID-19, supplemental oxygen IV steroids Quality Stroke Does the patient have a stroke diagnosis?: No VTE Prior VTE?: No VTE Risk Level:: Medical - moderate - high VTE Device Contraindication: Treatment Not Indicated VTE Drug Contraindication: N/A - Med Ordered
[2022-03-27 12:36] VITALS: BP 145/87; PULSE 57; RESP 18; O2SAT 97
[2022-03-27] MEDS: methADONE HCl 20 MG/2 ML ORAL.CONC 10 MG PO ×2 (14:01→20:40)
--- NOTE | 2022-03-27 14:43 | HO.ADDICTCON ---
History of Present Illness Date of Service: 03/27/22 Chief Complaint: difficulty breathing, covid+ Reason for Consult: opioid use, withdrawal management Requesting physician: Rohit Sibley Discussed with referring provider: Yes (with Awilda Cruz) Sources of Information: patient interviewed and chart reviewed HPI Narrative: Patient is a 52-year-old female, substance use history of 1 bundle heroin intranasally daily. Has been experiencing active opioid withdrawals while here. Most recent QTC 457 I met with patient this afternoon, along with resource forester. Patient asking for methadone when I met with her this afternoon. She had received a total of 35 mg methadone as 10 mg t.i.d. p.r.n. yesterday, along with an additional 5 mg dose early this morning. She appeared to be in opioid withdrawals, including gooseflesh skin, yawning, runny nose, restlessness. She also reports nausea. She states she has never been on methadone but is finding it helpful to manage her withdrawals while here. She does not have an ID, she states that she lost it. We explained that in ID would be necessary in order to be referred to a methadone clinic. We discussed option of Suboxone instead, as this does not require an ID. She stated she tried Suboxone 3-4 years ago, and experienced in [place]. She is not willing to trial Suboxone at this time. Medical Evaluation Reviewed: Yes Review of Systems Review of Systems Restlessness, slight diaphoresis, yawning, runny nose, teary eyes, gooseflesh skin. Appears to be in active opioid withdrawals. Constitutional: Reports body ache(s), Reports excessive sweating and Reports malaise Endocrine: Reports excessive sweating Diagnostics Vital Signs (24Hr): Vital Signs - 24 hr 03/26/22 16:03 03/26/22 20:49 03/26/22 20:58 Temperature 97.8 F 97.7 F Pulse Rate 52 52 Respiratory Rate 20 18 16 Blood Pressure 149/91 H 139/89 Pulse Oximetry 97 100 100 Oxygen Delivery Method Nasal Cannula Nasal Cannula Nasal Cannula Oxygen Flow Rate 2 4 03/27/22 00:24 03/27/22 04:11 03/27/22 07:43 Temperature 98.1 F Pulse Rate 48 L 49 L 55 Respiratory Rate 20 20 16 Blood Pressure 130/84 156/95 H Pulse Oximetry 100 97 Oxygen Delivery Method Nasal Cannula Nasal Cannula Oxygen Flow Rate 4 4 03/27/22 08:32 03/27/22 12:36 Temperature Pulse Rate 66 57 Respiratory Rate 16 18 Blood Pressure 136/89 145/87 H Pulse Oximetry 98 97 Oxygen Delivery Method Nasal Cannula Nasal Cannula Oxygen Flow Rate 2 2 BMI result Body Mass Index 28.0 Labs Results: 03/26/22 06:09 03/30/22 06:52 Labs: Laboratory Results - last 48 hr 03/26/22 03/26/22 03/26/22 01:46 01:46 01:47 WBC 8.9 RBC 4.44 Hgb 12.6 Hct 39.0 MCV 87.8 MCH 28.4 MCHC 32.3 RDW 15.7 Plt Count Not Reportable MPV Not Reportable Immature Gran % (Auto) 0.3 Neut % (Auto) 82.7 H Lymph % (Auto) 12.2 L [place] % (Auto) 4.6 Eos % (Auto) 0.0 Baso % (Auto) 0.2 Lymph # (Auto) 1.1 L [place] # (Auto) 0.4 Eos # (Auto) 0.0 Baso # (Auto) 0.0 Abs Immat Gran (auto) 0.03 Absolute Neuts (auto) 7.3 Absolute Nucleated RBC 0.000 Nucleated RBC % (auto) 0.0 Smear Tech's Comments VERIFIED PT INR VBG pH VBG pCO2 VBG pO2 VBG HCO3 VBG O2 Saturation VBG Base Excess Sodium Potassium Chloride Carbon Dioxide Anion Gap BUN Creatinine Estim Creat Clear Calc Estimated GFR Random Glucose Lactic Acid 0.9 Calcium Ferritin Total Bilirubin AST ALT Alkaline Phosphatase Lactate Dehydrogenase Troponin I High Sens 5.1 C-Reactive Protein Total Protein Albumin Procalcitonin Urine Color Urine Appearance Urine pH Ur Specific [place] Urine Protein Urine Glucose (UA) Urine Ketones Urine Blood Urine Nitrite Ur Leukocyte Esterase Urine RBC Urine WBC Ur Squamous Epith Cells Urine Bacteria Hyaline Casts Urine Opiates Screen Urine Fentanyl Screen Ur Barbiturates Screen Ur Phencyclidine Scrn Ur Amphetamines Screen U Benzodiazepines Scrn Urine Cocaine Screen U Marijuana (THC) Screen COVID-19 (BOONE) COVID-19 Clin Com 03/26/22 03/26/22 03/26/22 01:48 01:56 02:04 WBC RBC Hgb Hct MCV MCH MCHC RDW Plt Count MPV Immature Gran % (Auto) Neut % (Auto) Lymph % (Auto) [place] % (Auto) Eos % (Auto) Baso % (Auto) Lymph # (Auto) [place] # (Auto) Eos # (Auto) Baso # (Auto) Abs Immat Gran (auto) Absolute Neuts (auto) Absolute Nucleated RBC Nucleated RBC % (auto) Smear Tech's Comments PT INR VBG pH 7.45 H VBG pCO2 27 VBG pO2 132 VBG HCO3 19 L VBG O2 Saturation 99.0 VBG Base Excess -3.2 Sodium Potassium Chloride Carbon Dioxide Anion Gap BUN Creatinine Estim Creat Clear Calc Estimated GFR Random Glucose Lactic Acid Calcium Ferritin Total Bilirubin AST ALT Alkaline Phosphatase Lactate Dehydrogenase Troponin I High Sens C-Reactive Protein Total Protein Albumin Procalcitonin Urine Color Yellow Urine Appearance Clear Urine pH 6.0 Ur Specific Benld 1.020 Urine Protein 100 (2+) H Urine Glucose (UA) Negative Urine Ketones Negative Urine Blood Small (1+) H Urine Nitrite Negative Ur Leukocyte Esterase Negative Urine RBC 3-5 H Urine WBC 0-5 Ur Squamous Epith Cells 0-2 Urine Bacteria None Seen Hyaline Casts 0-2 Urine Opiates Screen Urine Fentanyl Screen Ur Barbiturates Screen Ur Phencyclidine Scrn Ur Amphetamines Screen U Benzodiazepines Scrn Urine Cocaine Screen U Marijuana (THC) Screen COVID-19 (BOONE) Positive A COVID-19 Clin Com See Note 03/26/22 03/26/22 03/26/22 02:04 02:10 02:10 WBC RBC Hgb Hct MCV MCH MCHC RDW Plt Count MPV Immature Gran % (Auto) Neut % (Auto) Lymph % (Auto) [place] % (Auto) Eos % (Auto) Baso % (Auto) Lymph # (Auto) [place] # (Auto) Eos # (Auto) Baso # (Auto) Abs Immat Gran (auto) Absolute Neuts (auto) Absolute Nucleated RBC Nucleated RBC % (auto) Smear Tech's Comments PT 11.2 INR 1.0 VBG pH VBG pCO2 VBG pO2 VBG HCO3 VBG O2 Saturation VBG Base Excess Sodium 139 Potassium 3.6 Chloride 106 Carbon Dioxide 23 Anion Gap 14 BUN 8 L Creatinine 0.60 Estim Creat Clear Calc 87.5 Estimated GFR > 60 Random Glucose 109 Lactic Acid Calcium 7.9 L D Ferritin Total Bilirubin < 0.2 AST 19 ALT 12 Alkaline Phosphatase 58 D Lactate Dehydrogenase Troponin I High Sens C-Reactive Protein 9.09 H Total Protein 6.5 Albumin 3.6 Procalcitonin Urine Color Urine Appearance Urine pH Ur Specific [place] Urine Protein Urine Glucose (UA) Urine Ketones Urine Blood Urine Nitrite Ur Leukocyte Esterase Urine RBC Urine WBC Ur Squamous Epith Cells Urine Bacteria Hyaline Casts Urine Opiates Screen POSITIVE H Urine Fentanyl Screen POSITIVE H Ur Barbiturates Screen Not Detected Ur Phencyclidine Scrn Not Detected Ur Amphetamines Screen Not Detected U Benzodiazepines Scrn Not Detected Urine Cocaine Screen POSITIVE H U Marijuana (THC) Screen POSITIVE H COVID-19 (BOONE) COVID-19 Clin Com 03/26/22 03/26/22 03/26/22 02:10 06:09 06:09 WBC 9.4 RBC 4.26 Hgb 12.2 Hct 37.7 MCV 88.5 MCH 28.6 MCHC 32.4 RDW 15.8 Plt Count 167 MPV 10.7 Immature Gran % (Auto) 0.5 H Neut % (Auto) 93.6 H Lymph % (Auto) 4.5 L [place] % (Auto) 1.3 L Eos % (Auto) 0.0 Baso % (Auto) 0.1 Lymph # (Auto) 0.4 L [place] # (Auto) 0.1 Eos # (Auto) 0.0 Baso # (Auto) 0.0 Abs Immat Gran (auto) 0.05 H Absolute Neuts (auto) 8.8 H Absolute Nucleated RBC 0.000 Nucleated RBC % (auto) 0.0 Smear Tech's Comments PT INR VBG pH VBG pCO2 VBG pO2 VBG HCO3 VBG O2 Saturation VBG Base Excess Sodium 142 Potassium 3.4 Chloride 108 Carbon Dioxide 23 Anion Gap 14 BUN 9 Creatinine 0.63 Estim Creat Clear Calc 83.3 Estimated GFR > 60 Random Glucose 181 H Lactic Acid Calcium 8.4 D Ferritin Total Bilirubin AST ALT Alkaline Phosphatase Lactate Dehydrogenase Troponin I High Sens C-Reactive Protein Total Protein Albumin Procalcitonin 0.17 Urine Color Urine Appearance Urine pH Ur Specific [place] Urine Protein Urine Glucose (UA) Urine Ketones Urine Blood Urine Nitrite Ur Leukocyte Esterase Urine RBC Urine WBC Ur Squamous Epith Cells Urine Bacteria Hyaline Casts Urine Opiates Screen Urine Fentanyl Screen Ur Barbiturates Screen Ur Phencyclidine Scrn Ur Amphetamines Screen U Benzodiazepines Scrn Urine Cocaine Screen U Marijuana (THC) Screen COVID-19 (BOONE) COVID-19 Clin Com 03/27/22 06:37 WBC RBC Hgb Hct MCV MCH MCHC RDW Plt Count MPV Immature Gran % (Auto) Neut % (Auto) Lymph % (Auto) [place] % (Auto) Eos % (Auto) Baso % (Auto) Lymph # (Auto) [place] # (Auto) Eos # (Auto) Baso # (Auto) Abs Immat Gran (auto) Absolute Neuts (auto) Absolute Nucleated RBC Nucleated RBC % (auto) Smear Tech's Comments PT INR VBG pH VBG pCO2 VBG pO2 VBG HCO3 VBG O2 Saturation VBG Base Excess Sodium Potassium Chloride Carbon Dioxide Anion Gap BUN Creatinine Estim Creat Clear Calc Estimated GFR Random Glucose Lactic Acid Calcium Ferritin 192 Total Bilirubin AST ALT Alkaline Phosphatase Lactate Dehydrogenase 222 H Troponin I High Sens C-Reactive Protein 7.08 H Total Protein Albumin Procalcitonin Urine Color Urine Appearance Urine pH Ur Specific [place] Urine Protein Urine Glucose (UA) Urine Ketones Urine Blood Urine Nitrite Ur Leukocyte Esterase Urine RBC Urine WBC Ur Squamous Epith Cells Urine Bacteria Hyaline Casts Urine Opiates Screen Urine Fentanyl Screen Ur Barbiturates Screen Ur Phencyclidine Scrn Ur Amphetamines Screen U Benzodiazepines Scrn Urine Cocaine Screen U Marijuana (THC) Screen COVID-19 ([facility]ONE) COVID-19 Clin Com Imaging Radiology Impressions: ITS Impressions Chest X-Ray 03/26/22 01:24 IMPRESSION: No dense consolidation. Bronchial wall thickening can be seen with a small airways process such as asthma or atypical/viral infection. Mental Status Exam Mental Status Exam Narrative: Well-developed, well-nourished female. Appears to be in active opioid withdrawals. Fatigued, anxious, wearing hospital garb. No SI/HI reported. No perceptual disturbances noted. No cogwheeling, no abnormal movements. Ambulation not observed. Patient Appearance: Fatigued Patient Orientation: Person, Place, Time and Situation Level of Consciousness: Awake Patient Behavior: Cooperative Mood Description: Anxious Affect Description: Anxious Patient Cognition Impaired: No Ability to Follow Directions: Good Speech Pattern: Coherent Medications Medications Current Medications Acetaminophen (Acetaminophen 325 Mg Tablet) 650 mg PO Q6H PRN PRN Reason: Pain, Mild (Pain Scale 1-3) Last Admin: 03/27/22 12:21 Dose: 650 mg Albuterol/Ipratropium (Albuterol/Iprat 2.5/0.5mg 3 Ml Ampul.Neb) 3 ml INHALE RQ4H PRN PRN Reason: Shortness of Breath/Wheezing Last Admin: 03/27/22 07:38 Dose: 3 ml Dexamethasone Sodium Phosphate (Dexamethasone Sod Phosphate 4 Mg/Ml Vial) 6 mg IVPUSH DAILY [facility] Last Admin: 03/27/22 08:30 Dose: 6 mg Docusate Sodium (Docusate Sodium 100 Mg Capsule) 100 mg PO DAILY PRN PRN Reason: Constipation Enoxaparin Sodium (Enoxaparin Sodium 40 Mg/0.4 Ml Syringe) 40 mg SUBCUT Q24H [facility] Last Admin: 03/27/22 07:23 Dose: Not Given Escitalopram Oxalate (Escitalopram Oxalate 5 Mg Tablet) 5 mg PO DAILY [facility] Last Admin: 03/27/22 08:30 Dose: 5 mg Fluticasone Propionate (Fluticasone Propionate Nasal 16 Gm [place]) 2 spray NOSTRIL-B DAILY [facility] Last Admin: 03/27/22 08:36 Dose: Not Given Fluticasone/Vilanterol (Fluticasone/Vilanterol 100/25 Blst.W.Dev) 1 puff INHALE RDAILY [facility] Last Admin: 03/27/22 07:42 Dose: Not Given Lidocaine (Lidocaine 4 % Patch Adh..Patch) 1 patch TRANSDERMA Q24H PRN PRN Reason: Pain Last Admin: 03/26/22 23:22 Dose: 1 patch Melatonin (Melatonin 3 Mg Tablet) 9 mg PO BEDTIME [facility] Last Admin: 03/26/22 20:43 Dose: 9 mg Methadone HCl (Methadone Hcl 20 Mg/2 Ml Oral.Conc) 10 mg PO BID [facility] Last Admin: 03/27/22 14:01 Dose: 10 mg Methadone HCl (Methadone Hcl 20 Mg/2 Ml Oral.Conc) 5 mg PO BID PRN PRN Reason: opioid withdrawals Nicotine (Nicotine 21 Mg Patch.Td24) 21 mg TRANSDERMA DAILY [facility] Nicotine Polacrilex (Nicotine Polacrilex 2 Mg Gum) 2 mg BUCCAL Q2H PRN PRN Reason: Nicotine Cravings Last Admin: 03/26/22 23:23 Dose: 2 mg Ondansetron HCl (Ondansetron Hcl 4 Mg/2 Ml Vial) 4 mg IVPUSH Q8H PRN PRN Reason: Nausea and Vomiting Last Admin: 03/27/22 12:21 Dose: 4 mg Pharmacy Consult (Consult Rx Perform Med Rec) 1 each MISCELLANE ONCE PRN PRN Reason: Consult order Pregabalin (Pregabalin 200 Mg Capsule) 200 mg PO TID [facility] Last Admin: 03/27/22 14:01 Dose: 200 mg Sodium Chloride (0.9 % Sodium Chloride Flush 3 Ml Syringe) 3 ml IVFLUSH QSHIFT [facility] Last Admin: 03/27/22 07:23 Dose: Not Given Allergies Allergies Allergy/AdvReac Type Severity Reaction Status Date / Time No Known Allergies Allergy Verified 11/16/20 10:49 [No Known Allergies*] Assessment & Plan Assessment & Plan (1) Opioid use disorder, severe, dependence: Status: Acute Code(s): F11.20 - Opioid dependence, uncomplicated Plan 1. Methadone 10 mg b.i.d. scheduled, with 5 mg b.i.d. prn for opioid withdrawals. 2. Addiction consult service will continue to follow patient while she is here. I spent ___25___ minutes with the patient and/or on the patient floor today, greater than?50% of which was spent counseling/coordinating care. Patient educated on: diagnosis, medication risk/benefits, substance abuse and therapeutic strategies Informed Consent: understands [facility] Past Medical History Medical History (Updated 03/27/22 @ 14:56 by Amber Ayon) Chronic idiopathic constipation Chronic knee pain Chronic low back pain COPD (chronic obstructive pulmonary disease) Depression GERD (gastroesophageal reflux disease) History of CVA (cerebrovascular accident) Insomnia Mixed stress and urge incontinence Smoker Substance use Surgical History Surgical History (Updated 03/26/22 @ 05:51 by Rohit Sibley MD) No pertinent past surgical history Social History Social History Household Members: Family and Children Housing: Apartment Do you presently have visiting nurse or other home services: No (mother has services) Alcohol intake: unknown Patient Tobacco Use Status: Current everyday Tobacco user Tobacco use type: Cigarette Cigarette Packs Per Day: 1 Cigarettes Per Day: 20.0 e-Cigarette/Vaping Use: Never Used Second Hand Smoke Exposure: No Substance Use Type: Heroin and Marijuana
[2022-03-27] MEDS: Nicotine 21 MG PATCH.TD24 TRANSDERMA (15:51)
[2022-03-27 20:10] VITALS: PULSE 59; RESP 16; O2SAT 96
[2022-03-27] MEDS: Melatonin 3 MG TABLET 9 MG PO (21:01)
[2022-03-28] VITALS (11 sets, daily range): BP systolic 97–147; BP diastolic 50–99; PULSE 49–74; RESP 14–20; TEMP 36.2–37.2; O2SAT 91–97
[2022-03-28] MEDS: methADONE HCl 20 MG/2 ML ORAL.CONC 5 MG PO ×3 (01:06→18:27)
[2022-03-28] MEDS: ondansetron HCL 4 MG/2 ML VIAL IVPUSH ×2 (05:55→07:59)
[2022-03-28] MEDS: Enoxaparin Sodium 40 MG/0.4 ML SYRINGE SUBCUT (05:55)
[2022-03-28] MEDS: Acetaminophen 325 MG TABLET 650 MG PO ×3 (05:56→22:51)
--- NOTE | 2022-03-28 07:46 | PC.NURSE ---
patient a/ox4 . pearrla . lungs diminished , crackles noted upper lobes . non productive wet cough noted . elevated patients bed . heart rate regular at 72 beat per minute . skin pink warm and moist . patient vomited several times . obtained orders for zofran . medicated as ordered . patient aware of plan of care .
[2022-03-28] MEDS: dexAMETHasone sod phosphate 4 MG/ML VIAL 6 MG IVPUSH (07:59)
[2022-03-28] MEDS: Nicotine 21 MG PATCH.TD24 TRANSDERMA (08:00)
[2022-03-28] MEDS: Pregabalin 200 MG CAPSULE PO ×3 (08:00→22:35)
[2022-03-28] MEDS: guaiFEN/Codeine SF 200/20/10ML 10 ML LIQUID PO (08:00)
[2022-03-28] MEDS: Escitalopram Oxalate 5 MG TABLET PO (08:00)
[2022-03-28] MEDS: Albuterol/Iprat 2.5/0.5MG 3 ML AMPUL.NEB INHALE (08:23)
--- NOTE | 2022-03-28 09:30 | PC.NURSE ---
pt seen by em (rn, recovery personal), pt aware of plan of care.
--- NOTE | 2022-03-28 10:48 | PC.NURSE ---
pt seen by willam (hosp, damper fitter), pt aware of plan of care.
--- NOTE | 2022-03-28 11:04 | MHC.RECOVRN ---
Addendum entered by Tosin Mendieta RN 03/28/22 11:06: T/W checked in w/ RN, pt given PRN MTD dose at 8am and Sha pt to receive scheduled MTD 10mg dose at 11am per RN instruction. Amber Ayon, DIRECTOR APPOINTMENT aware. Original Note: T/W met w/ pt, pt active N/V/D upon entering bed, t/w introduced myself and role and checking on methadone. Pt confused and states not feeling well, actively vomiting/diarrhea in bed.
--- NOTE | 2022-03-28 11:16 | PC.NURSE ---
pt's mother gail ([phone]) called and was updated on pt status.
[2022-03-28] MEDS: 0.9 % Sodium Chloride Flush 3 ML SYRINGE IVFLUSH ×2 (12:02→16:50)
[2022-03-28] MEDS: methADONE HCl 20 MG/2 ML ORAL.CONC 10 MG PO ×2 (12:03→22:35)
--- NOTE | 2022-03-28 12:39 | P.PNIM_ITS ---
Subjective Subjective Date of Service: 03/28/22 Review of Systems Follow up covid feeling weak no sob Physical Exam Vital Signs: Vital Signs: Last Vital Signs Temp 99.0 F 03/28/22 07:25 Pulse 61 03/28/22 08:24 Resp 16 03/28/22 08:24 BP 125/86 03/28/22 07:25 Pulse Ox 94 03/28/22 07:25 O2 Del Method 03/28/22 07:25 O2 Flow Rate 2 03/28/22 07:25 Oxygen Flow Rate 2 03/26/22 20:58 BMI result Body Mass Index 28.0 Appearing in no acute distress lung sounds are clear to auscultation heart regular rate rhythm, clear S1, S2 positive bowel sounds, abdomen is soft, nontender neuro patient is alert x3, no focal deficits Objective Data Active Medications Acetaminophen (Acetaminophen 325 Mg Tablet) 650 mg PO Q6H PRN PRN Reason: Pain, Mild (Pain Scale 1-3) Last Admin: 03/28/22 05:56 Dose: 650 mg Documented By: JANINE Albuterol/Ipratropium (Albuterol/Iprat 2.5/0.5mg 3 Ml Ampul.Neb) 3 ml INHALE RQ4H PRN PRN Reason: Shortness of Breath/Wheezing Last Admin: 03/27/22 07:38 Dose: 3 ml Documented By: DARVIN Dexamethasone Sodium Phosphate (Dexamethasone Sod Phosphate 4 Mg/Ml Vial) 6 mg IVPUSH DAILY [facility] Last Admin: 03/28/22 07:59 Dose: 6 mg Documented By: ARIA Docusate Sodium (Docusate Sodium 100 Mg Capsule) 100 mg PO DAILY PRN PRN Reason: Constipation Enoxaparin Sodium (Enoxaparin Sodium 40 Mg/0.4 Ml Syringe) 40 mg SUBCUT Q24H [facility] Last Admin: 03/28/22 05:55 Dose: 40 mg Documented By: JANINE Escitalopram Oxalate (Escitalopram Oxalate 5 Mg Tablet) 5 mg PO DAILY [facility] Last Admin: 03/28/22 08:00 Dose: 5 mg Documented By: ARIA Fluticasone Propionate (Fluticasone Propionate Nasal 16 Gm [place]) 2 spray NOSTRIL-B DAILY [facility] Last Admin: 03/27/22 08:36 Dose: Not Given Fluticasone/Vilanterol (Fluticasone/Vilanterol 100/25 Blst.W.Dev) 1 puff INHALE RDAILY [facility] Last Admin: 03/28/22 08:17 Dose: Not Given Documented By: DARVIN Non-Admin Reason: Med Not Available Guaifenesin/Codeine Phosphate (Guaifen/Codeine Sf 200/20/10ml 10 Ml Liquid) 10 ml PO Q4H PRN PRN Reason: Cough Last Admin: 03/28/22 08:00 Dose: 10 ml Documented By: ARIA Lidocaine (Lidocaine 4 % Patch Adh..Patch) 1 patch TRANSDERMA Q24H PRN PRN Reason: Pain Last Admin: 03/26/22 23:22 Dose: 1 patch Documented By: NALLELY Melatonin (Melatonin 3 Mg Tablet) 9 mg PO BEDTIME [facility] Last Admin: 03/27/22 21:01 Dose: 9 mg Documented By: JANINE Methadone HCl (Methadone Hcl 20 Mg/2 Ml Oral.Conc) 10 mg PO BID [facility] Last Admin: 03/28/22 12:03 Dose: 10 mg Documented By: ARIA Methadone HCl (Methadone Hcl 20 Mg/2 Ml Oral.Conc) 5 mg PO BID PRN PRN Reason: opioid withdrawals Last Admin: 03/28/22 01:06 Dose: 5 mg Documented By: JANINE Nicotine (Nicotine 21 Mg Patch.Td24) 21 mg TRANSDERMA DAILY [facility] Last Admin: 03/28/22 08:00 Dose: 21 mg Documented By: ARIA Nicotine Polacrilex (Nicotine Polacrilex 2 Mg Gum) 2 mg BUCCAL Q2H PRN PRN Reason: Nicotine Cravings Last Admin: 03/26/22 23:23 Dose: 2 mg Documented By: NALLELY Ondansetron HCl (Ondansetron Hcl 4 Mg/2 Ml Vial) 4 mg IVPUSH Q8H PRN PRN Reason: Nausea and Vomiting Last Admin: 03/28/22 07:59 Dose: 4 mg Documented By: ARIA Pharmacy Consult (Consult Rx Perform Med Rec) 1 each MISCELLANE ONCE PRN PRN Reason: Consult order Pregabalin (Pregabalin 200 Mg Capsule) 200 mg PO TID [facility] Last Admin: 03/28/22 08:00 Dose: 200 mg Documented By: ARIA Sodium Chloride (0.9 % Sodium Chloride Flush 3 Ml Syringe) 3 ml IVFLUSH QSHIFT [facility] Last Admin: 03/28/22 12:02 Dose: 3 ml Documented By: ARIA Labs CBC & Chem 7: 03/26/22 06:09 03/26/22 06:09 Microbiology Microbiology Results: Microbiology 03/26/22 01:46 Blood Culture - Preliminary Blood - Venous No growth after 48 hours. 03/26/22 01:46 Blood Culture - Preliminary Blood - Venous No growth after 48 hours. Assessment and Plan (1) COVID-19 virus infection: Status: Acute (2) Acute respiratory failure with hypoxia: Status: Acute Plan 52-year-old female with past medical history of COPD presents the hospital shortness of breath found to have COVID-19 pneumonia and hypoxia Acute hypoxic respiratory failure secondary to COVID-19 pneumonia and COPD initially in the 80s on room air, now down to 2L NC no evidence of superimposed bacterial infection has no leukocytosis, procalcitonin low inflammatory markers trending down Continue IV dexamethasone , duonebs monitor respiratory status continue dexamethasone monitor respiratory status, wean o2 as tolerated continue home Breo, Flonase Hx of substance abuse seen by addiction medicine, received methadone yesterday Mental health Continue Margarita Das Smoker Discussed the importance of smoking cessation Nicotine replacement therapy offered DVT prophylaxis nLovenox Attending Dr. Bazea patient requires ongoing inpatient hospitalization for management of COVID-19, supplemental oxygen IV steroids Quality Stroke Does the patient have a stroke diagnosis?: No VTE Prior VTE?: No VTE Risk Level:: Medical - moderate - high VTE Device Contraindication: Treatment Not Indicated VTE Drug Contraindication: N/A - Med Ordered
--- NOTE | 2022-03-28 20:43 | PC.NURSE ---
patient refused her dinner ,but ask for a chicken salad sandwich,patient resting watching a movie on television .
[2022-03-28] MEDS: Melatonin 3 MG TABLET 9 MG PO (22:35)
--- NOTE | 2022-03-28 22:43 | PC.NURSE ---
Pt c/o headache and overall body aches. unlabored resp. skin pwd. axox3. denies CP/SOB. LS CTA. good bed mobility.
[2022-03-29] VITALS (7 sets, daily range): BP systolic 107–129; BP diastolic 71–87; PULSE 51–83; RESP 15–20; TEMP 36.6–37.1; O2SAT 91–94
[2022-03-29] MEDS: Enoxaparin Sodium 40 MG/0.4 ML SYRINGE SUBCUT (06:54)
[2022-03-29 07:20] LABS: Anion Gap 14 (12-20); Blood Urea Nitrogen 12 mg/dL (9-16); Calcium 8.7 mg/dL (8.4-10.2); Carbon Dioxide 29 mmol/L (22-29); Chloride 100 mmol/L (96-108); Creatinine Clr Calc Pharmacy 95.5; Estimated Glomerular Filt Rate > 60; Glucose Random 91 mg/dL (60-115); Potassium 3.6 mmol/L (3.3-5.1); Sodium 139 mmol/L (135-145)
[2022-03-29] MEDS: Fluticasone/Vilanterol 100/25 BLST.W.DEV 1 PUFF INHALE (08:07)
[2022-03-29] MEDS: dexAMETHasone sod phosphate 4 MG/ML VIAL 6 MG IVPUSH (08:33)
[2022-03-29] MEDS: methADONE HCl 20 MG/2 ML ORAL.CONC 10 MG PO ×2 (08:33→20:59)
[2022-03-29] MEDS: Escitalopram Oxalate 5 MG TABLET PO (08:33)
[2022-03-29] MEDS: Nicotine 21 MG PATCH.TD24 TRANSDERMA (08:33)
[2022-03-29] MEDS: Pregabalin 200 MG CAPSULE PO ×3 (08:33→20:59)
--- NOTE | 2022-03-29 10:45 | P.PNIM_ITS ---
Subjective Subjective Date of Service: 03/29/22 Review of Systems Follow up covid feeling weak no sob Physical Exam Vital Signs: Vital Signs: Last Vital Signs Temp 97.9 F 03/29/22 03:52 Pulse 57 03/29/22 08:07 Resp 16 03/29/22 08:07 BP 128/71 03/29/22 06:22 Pulse Ox 91 L 03/29/22 06:22 O2 Del Method 03/29/22 06:22 O2 Flow Rate 2 03/29/22 06:22 Oxygen Flow Rate 2 03/26/22 20:58 BMI result Body Mass Index 28.0 Appearing in no acute distress lung sounds are clear to auscultation heart regular rate rhythm, clear S1, S2 positive bowel sounds, abdomen is soft, nontender neuro patient is alert x3, no focal deficits Objective Data Active Medications Acetaminophen (Acetaminophen 325 Mg Tablet) 650 mg PO Q6H PRN PRN Reason: Pain, Mild (Pain Scale 1-3) Last Admin: 03/28/22 22:51 Dose: 650 mg Documented By: MARCO A Albuterol/Ipratropium (Albuterol/Iprat 2.5/0.5mg 3 Ml Ampul.Neb) 3 ml INHALE RQ4H PRN PRN Reason: Shortness of Breath/Wheezing Last Admin: 03/27/22 07:38 Dose: 3 ml Documented By: DARVIN Dexamethasone Sodium Phosphate (Dexamethasone Sod Phosphate 4 Mg/Ml Vial) 6 mg IVPUSH DAILY [facility] Last Admin: 03/29/22 08:33 Dose: 6 mg Documented By: MINESH Docusate Sodium (Docusate Sodium 100 Mg Capsule) 100 mg PO DAILY PRN PRN Reason: Constipation Enoxaparin Sodium (Enoxaparin Sodium 40 Mg/0.4 Ml Syringe) 40 mg SUBCUT Q24H [facility] Last Admin: 03/29/22 06:54 Dose: 40 mg Documented By: BENJAMIN Escitalopram Oxalate (Escitalopram Oxalate 5 Mg Tablet) 5 mg PO DAILY [facility] Last Admin: 03/29/22 08:33 Dose: 5 mg Documented By: MINESH Fluticasone Propionate (Fluticasone Propionate Nasal 16 Gm [place]) 2 spray NOSTRIL-B DAILY [facility] Last Admin: 03/29/22 10:05 Dose: Not Given Documented By: MINESH Non-Admin Reason: Patient Asleep Fluticasone/Vilanterol (Fluticasone/Vilanterol 100/25 Blst.W.Dev) 1 puff INHALE RDAILY [facility] Last Admin: 03/29/22 08:07 Dose: 1 puff Documented By: DARVIN Guaifenesin/Codeine Phosphate (Guaifen/Codeine Sf 200/20/10ml 10 Ml Liquid) 10 ml PO Q4H PRN PRN Reason: Cough Last Admin: 03/28/22 08:00 Dose: 10 ml Documented By: ARIA Lidocaine (Lidocaine 4 % Patch Adh..Patch) 1 patch TRANSDERMA Q24H PRN PRN Reason: Pain Last Admin: 03/26/22 23:22 Dose: 1 patch Documented By: NALLELY Melatonin (Melatonin 3 Mg Tablet) 9 mg PO BEDTIME [facility] Last Admin: 03/28/22 22:35 Dose: 9 mg Documented By: SUGAR Methadone HCl (Methadone Hcl 20 Mg/2 Ml Oral.Conc) 10 mg PO BID [facility] Last Admin: 03/29/22 08:33 Dose: 10 mg Documented By: MINESH Methadone HCl (Methadone Hcl 20 Mg/2 Ml Oral.Conc) 5 mg PO BID PRN PRN Reason: opioid withdrawals Last Admin: 03/28/22 18:27 Dose: 5 mg Documented By: ARIA Nicotine (Nicotine 21 Mg Patch.Td24) 21 mg TRANSDERMA DAILY [facility] Last Admin: 03/29/22 08:33 Dose: 21 mg Documented By: MINESH Nicotine Polacrilex (Nicotine Polacrilex 2 Mg Gum) 2 mg BUCCAL Q2H PRN PRN Reason: Nicotine Cravings Last Admin: 03/26/22 23:23 Dose: 2 mg Documented By: NALLELY Ondansetron HCl (Ondansetron Hcl 4 Mg/2 Ml Vial) 4 mg IVPUSH Q8H PRN PRN Reason: Nausea and Vomiting Last Admin: 03/28/22 07:59 Dose: 4 mg Documented By: ARIA Pharmacy Consult (Consult Rx Perform Med Rec) 1 each MISCELLANE ONCE PRN PRN Reason: Consult order Pregabalin (Pregabalin 200 Mg Capsule) 200 mg PO TID [facility] Last Admin: 03/29/22 08:33 Dose: 200 mg Documented By: MINESH Sodium Chloride (0.9 % Sodium Chloride Flush 3 Ml Syringe) 3 ml IVFLUSH QSHIFT [facility] Last Admin: 03/29/22 07:23 Dose: Not Given Documented By: MINESH Non-Admin Reason: Med Not Available Labs CBC & Chem 7: 03/26/22 06:09 03/29/22 06:39 Labs: Laboratory Results - last 24 hr 03/29/22 06:39 Anion Gap 14 Estim Creat Clear Calc 95.5 Estimated GFR > 60 Random Glucose 91 Calcium 8.7 Assessment and Plan (1) COVID-19 virus infection: Status: Acute (2) Acute respiratory failure with hypoxia: Status: Acute Plan 52-year-old female with past medical history of COPD presents the hospital shortness of breath found to have COVID-19 pneumonia and hypoxia Acute hypoxic respiratory failure secondary to COVID-19 pneumonia and COPD initially in the 80s on room air, now down to 2L NC in the 's no evidence of superimposed bacterial infection has no leukocytosis, procalcitonin low inflammatory markers trending down Continue IV dexamethasone , duonebs continue home Breo, Flonase Hx of substance abuse seen by addiction medicine continue methadone Mental health Continue StevenaprSowmya meyersa Smoker Discussed the importance of smoking cessation Nicotine replacement therapy offered DVT prophylaxis nLovenox Attending Dr. Rodriguez patient requires ongoing inpatient hospitalization for management of COVID-19, supplemental oxygen IV steroids Quality Stroke Does the patient have a stroke diagnosis?: No VTE Prior VTE?: No VTE Risk Level:: Medical - moderate - high VTE Device Contraindication: Treatment Not Indicated VTE Drug Contraindication: N/A - Med Ordered
--- NOTE | 2022-03-29 11:15 | MHC.CM.PN ---
Attempted to contact all contacts listed in EMR: daughter, parent and son. One number going directly to and the other disconnected. COVID patient; CM to reapproach.
--- NOTE | 2022-03-29 12:12 | MHC.RECOVRN ---
T/W checked in on pt, pt sleeping comfortably. Addiction Consult Provider Phil cox.
[2022-03-29] MEDS: methADONE HCl 20 MG/2 ML ORAL.CONC 5 MG PO (18:04)
[2022-03-29] MEDS: Melatonin 3 MG TABLET 9 MG PO (21:00)
[2022-03-29] MEDS: 0.9 % Sodium Chloride Flush 3 ML SYRINGE IVFLUSH (21:01)
[2022-03-29] MEDS: Acetaminophen 325 MG TABLET 650 MG PO (23:30)
[2022-03-30] VITALS (8 sets, daily range): BP systolic 111–131; BP diastolic 64–87; PULSE 49–80; RESP 18–20; TEMP 36.4–37.1; O2SAT 86–100
[2022-03-30] MEDS: Acetaminophen 325 MG TABLET 650 MG PO ×2 (05:39→13:58)
[2022-03-30] MEDS: Enoxaparin Sodium 40 MG/0.4 ML SYRINGE SUBCUT (05:40)
[2022-03-30 07:43] LABS: Anion Gap 15 (12-20); Blood Urea Nitrogen 13 mg/dL (9-16); Calcium 8.5 mg/dL (8.4-10.2); Carbon Dioxide 27 mmol/L (22-29); Chloride 102 mmol/L (96-108); Creatinine Clr Calc Pharmacy 95.5; Estimated Glomerular Filt Rate > 60; Glucose Random 87 mg/dL (60-115); Potassium 3.8 mmol/L (3.3-5.1); Sodium 140 mmol/L (135-145)
[2022-03-30 07:49] LABS: Alanine Aminotransferase 25 U/L (0-31); Albumin Level 3.4 g/dL (3.5-5.0); Alkaline Phosphatase 68 U/L (39-117); Aspartate Amino Transferase 14 U/L (5-31); Bilirubin Direct 0.2 mg/dL (0.0-0.5); Bilirubin Total 0.5 mg/dL (0.0-1.0); Lactate Dehydrogenase 198 U/L (122-220); Total Protein 6.5 g/dL (6.5-8.0)
[2022-03-30] MEDS: methADONE HCl 20 MG/2 ML ORAL.CONC 10 MG PO (07:56)
[2022-03-30] MEDS: Nicotine 21 MG PATCH.TD24 TRANSDERMA (07:57)
[2022-03-30] MEDS: Fluticasone Propionate Nasal 16 GM SPRAY 2 SPRAY NOSTRIL-B (07:58)
[2022-03-30] MEDS: Escitalopram Oxalate 5 MG TABLET PO (07:58)
[2022-03-30] MEDS: dexAMETHasone sod phosphate 4 MG/ML VIAL 6 MG IVPUSH (07:58)
[2022-03-30 07:59] LABS: Ferritin 172 ng/mL (10-250)
[2022-03-30] MEDS: Pregabalin 200 MG CAPSULE PO ×3 (07:59→20:08)
[2022-03-30] MEDS: 0.9 % Sodium Chloride Flush 3 ML SYRINGE IVFLUSH ×2 (07:59→16:35)
[2022-03-30] MEDS: ondansetron HCL 4 MG/2 ML VIAL IVPUSH (08:08)
--- NOTE | 2022-03-30 10:04 | P.PNIM_ITS ---
Subjective Subjective Date of Service: 03/30/22 Review of Systems Follow up covid feeling weak no sob Physical Exam Vital Signs: Vital Signs: Last Vital Signs Temp 97.5 F 03/30/22 07:41 Pulse 53 03/30/22 07:41 Resp 20 03/30/22 07:41 BP 131/87 03/30/22 07:41 Pulse Ox 86 L 03/30/22 09:27 O2 Del Method 03/30/22 09:27 O2 Flow Rate 4 03/30/22 07:41 Oxygen Flow Rate 2 03/26/22 20:58 BMI result Body Mass Index 28.0 Appearing in no acute distress lung sounds are clear to auscultation heart regular rate rhythm, clear S1, S2 positive bowel sounds, abdomen is soft, nontender neuro patient is alert x3, no focal deficits Objective Data Active Medications Acetaminophen (Acetaminophen 325 Mg Tablet) 650 mg PO Q6H PRN PRN Reason: Pain, Mild (Pain Scale 1-3) Last Admin: 03/30/22 05:39 Dose: 650 mg Documented By: EDIL Albuterol/Ipratropium (Albuterol/Iprat 2.5/0.5mg 3 Ml Ampul.Neb) 3 ml INHALE RQ4H PRN PRN Reason: Shortness of Breath/Wheezing Last Admin: 03/27/22 07:38 Dose: 3 ml Documented By: DARVIN Dexamethasone Sodium Phosphate (Dexamethasone Sod Phosphate 4 Mg/Ml Vial) 6 mg IVPUSH DAILY [facility] Last Admin: 03/30/22 07:58 Dose: 6 mg Documented By: MAT Docusate Sodium (Docusate Sodium 100 Mg Capsule) 100 mg PO DAILY PRN PRN Reason: Constipation Enoxaparin Sodium (Enoxaparin Sodium 40 Mg/0.4 Ml Syringe) 40 mg SUBCUT Q24H [facility] Last Admin: 03/30/22 05:40 Dose: 40 mg Documented By: EDIL Escitalopram Oxalate (Escitalopram Oxalate 5 Mg Tablet) 5 mg PO DAILY [facility] Last Admin: 03/30/22 07:58 Dose: 5 mg Documented By: MAT Fluticasone Propionate (Fluticasone Propionate Nasal 16 Gm [place]) 2 spray NOSTRIL-B DAILY [facility] Last Admin: 03/30/22 07:58 Dose: 2 spray Documented By: MAT Fluticasone/Vilanterol (Fluticasone/Vilanterol 100/25 Blst.W.Dev) 1 puff INHALE RDAILY [facility] Last Admin: 03/29/22 08:07 Dose: 1 puff Documented By: DARVIN Guaifenesin/Codeine Phosphate (Guaifen/Codeine Sf 200/20/10ml 10 Ml Liquid) 10 ml PO Q4H PRN PRN Reason: Cough Last Admin: 03/28/22 08:00 Dose: 10 ml Documented By: ARIA Lidocaine (Lidocaine 4 % Patch Adh..Patch) 1 patch TRANSDERMA Q24H PRN PRN Reason: Pain Last Admin: 03/26/22 23:22 Dose: 1 patch Documented By: NALLELY Melatonin (Melatonin 3 Mg Tablet) 9 mg PO BEDTIME [facility] Last Admin: 03/29/22 21:00 Dose: 9 mg Documented By: EDIL Methadone HCl (Methadone Hcl 20 Mg/2 Ml Oral.Conc) 10 mg PO BID [facility] Last Admin: 03/30/22 07:56 Dose: 10 mg Documented By: MAT Nicotine (Nicotine 21 Mg Patch.Td24) 21 mg TRANSDERMA DAILY [facility] Last Admin: 03/30/22 07:57 Dose: 21 mg Documented By: MAT Nicotine Polacrilex (Nicotine Polacrilex 2 Mg Gum) 2 mg BUCCAL Q2H PRN PRN Reason: Nicotine Cravings Last Admin: 03/26/22 23:23 Dose: 2 mg Documented By: NALLELY Ondansetron HCl (Ondansetron Hcl 4 Mg/2 Ml Vial) 4 mg IVPUSH Q8H PRN PRN Reason: Nausea and Vomiting Last Admin: 03/30/22 08:08 Dose: 4 mg Documented By: MAT Pharmacy Consult (Consult Rx Perform Med Rec) 1 each MISCELLANE ONCE PRN PRN Reason: Consult order Pregabalin (Pregabalin 200 Mg Capsule) 200 mg PO TID [facility] Last Admin: 03/30/22 07:59 Dose: 200 mg Documented By: MAT Sodium Chloride (0.9 % Sodium Chloride Flush 3 Ml Syringe) 3 ml IVFLUSH QSHIFT [facility] Last Admin: 03/30/22 07:59 Dose: 3 ml Documented By: MAT Labs CBC & Chem 7: 03/26/22 06:09 03/30/22 06:52 Labs: Laboratory Results - last 24 hr 03/30/22 03/30/22 06:52 06:52 Anion Gap 15 Estim Creat Clear Calc 95.5 Estimated GFR > 60 Random Glucose 87 Calcium 8.5 Ferritin 172 Total Bilirubin 0.5 Direct Bilirubin 0.2 AST 14 ALT 25 Alkaline Phosphatase 68 Lactate Dehydrogenase 198 Total Protein 6.5 Albumin 3.4 L Assessment and Plan (1) COVID-19 virus infection: Status: Acute (2) Acute respiratory failure with hypoxia: Status: Acute Plan 52-year-old female with past medical history of COPD presents the hospital shortness of breath found to have COVID-19 pneumonia and hypoxia Acute hypoxic respiratory failure secondary to COVID-19 pneumonia and COPD no evidence of superimposed bacterial infection has no leukocytosis, inflammatory markers trending down Continue IV dexamethasone , duonebs continue home Breo, Flonase O2sat 88% with ambulation will need home o2 eval prior to dc Hx of substance abuse seen by addiction medicine continue methadone Mental health Continue Lexapro, Lyrica Smoker Discussed the importance of smoking cessation Nicotine replacement therapy offered DVT prophylaxis Lovenox Attending Dr. Colbert patient requires ongoing inpatient hospitalization for management of COVID-19, supplemental oxygen IV steroids Quality Stroke Does the patient have a stroke diagnosis?: No VTE Prior VTE?: No VTE Risk Level:: Medical - moderate - high VTE Device Contraindication: Treatment Not Indicated VTE Drug Contraindication: N/A - Med Ordered
--- NOTE | 2022-03-30 12:56 | MHC.RECOVRN ---
Met with pt in 477 to follow up regarding methadone. Pt in bed, awake, alert, engages in conversation. Pt reports withdrawal symptoms including vomiting and body aches. Initially pt did not have ID, however, one was located. Pt would like to continue methadone outpatient at [facility]. Pt continues to report 1 bundle [place], [place], daily x 2 years. Denies other substances. Pt denies questions or concerns at this time. Referral sent to [facility]. Discussed with Deyanira Anaya APRN.
--- NOTE | 2022-03-30 13:49 | P.PNADD_ITS ---
Subjective Subjective Date of Service: 03/30/22 Reason For Visit: difficulty breathing, covid+ Interim History: Patient seen in follow up. Started on methadone over the weekend, split dosing. Receiving btwn 25-30mg daily. Initially thought that patient did not have photo ID so plan was to taper and offer buprenorphine. Photo ID obtained and patient verbalized desire to remain on methadone. Patient seen in room 477. Awake, alert, visibly uncomfortable. Reporting nausea, pain, vomiting, restlessness. Received methadone 10mg earlier this morning. RN reports no sedation noted after methadone administration Review of Systems Constitutional: Reports as per [facility] Mental Status Exam Mental Status Exam Patient Appearance: Appropriate (ill appearing, uncomfortable ) Level of Consciousness: Awake, Appropriate and Restless Speech Pattern: Clear Diagnostics Vital Signs (24Hr): Vital Signs - 24 hr 03/29/22 15:26 03/29/22 20:00 03/29/22 23:30 Temperature 98.2 F 98.7 F 98.2 F Pulse Rate 55 67 61 Respiratory Rate 20 18 Blood Pressure 120/80 116/78 107/80 Pulse Oximetry 92 94 94 Oxygen Delivery Method Room Air Nasal Cannula Nasal Cannula Oxygen Flow Rate 4 4 03/30/22 03:35 03/30/22 07:41 03/30/22 09:27 Temperature 98.6 F 97.5 F Pulse Rate 53 Respiratory Rate 20 20 Blood Pressure 129/87 131/87 Pulse Oximetry 97 97 86 L Oxygen Delivery Method Nasal Cannula Nasal Cannula Room Air Oxygen Flow Rate 4 4 03/30/22 11:35 03/30/22 11:40 Temperature 98.4 F Pulse Rate 60 Respiratory Rate 20 Blood Pressure 116/72 Pulse Oximetry 88 L 88 L Oxygen Delivery Method Room Air Room Air Oxygen Flow Rate BMI result Body Mass Index 28.0 Labs Results: 03/26/22 06:09 03/30/22 06:52 Labs: Laboratory Results - last 48 hr 03/29/22 03/30/22 03/30/22 06:39 06:52 06:52 Sodium 139 140 Potassium 3.6 3.8 Chloride 100 102 Carbon Dioxide 29 27 Anion Gap 14 15 BUN 12 13 Creatinine 0.55 0.55 Estim Creat Clear Calc 95.5 95.5 Estimated GFR > 60 > 60 Random Glucose 91 87 Calcium 8.7 8.5 Ferritin 172 Total Bilirubin 0.5 Direct Bilirubin 0.2 AST 14 ALT 25 Alkaline Phosphatase 68 Lactate Dehydrogenase 198 Total Protein 6.5 Albumin 3.4 L Imaging Radiology Impressions: ITS Impressions Chest X-Ray 03/26/22 01:24 IMPRESSION: No dense consolidation. Bronchial wall thickening can be seen with a small airways process such as asthma or atypical/viral infection. Medications Medications Current Medications Acetaminophen (Acetaminophen 325 Mg Tablet) 650 mg PO Q6H PRN PRN Reason: Pain, Mild (Pain Scale 1-3) Last Admin: 03/30/22 05:39 Dose: 650 mg Albuterol/Ipratropium (Albuterol/Iprat 2.5/0.5mg 3 Ml Ampul.Neb) 3 ml INHALE RQ4H PRN PRN Reason: Shortness of Breath/Wheezing Last Admin: 03/27/22 07:38 Dose: 3 ml Dexamethasone Sodium Phosphate (Dexamethasone Sod Phosphate 4 Mg/Ml Vial) 6 mg IVPUSH DAILY [facility] Last Admin: 03/30/22 07:58 Dose: 6 mg Docusate Sodium (Docusate Sodium 100 Mg Capsule) 100 mg PO DAILY PRN PRN Reason: Constipation Enoxaparin Sodium (Enoxaparin Sodium 40 Mg/0.4 Ml Syringe) 40 mg SUBCUT Q24H [facility] Last Admin: 03/30/22 05:40 Dose: 40 mg Escitalopram Oxalate (Escitalopram Oxalate 5 Mg Tablet) 5 mg PO DAILY [facility] Last Admin: 03/30/22 07:58 Dose: 5 mg Fluticasone Propionate (Fluticasone Propionate Nasal 16 Gm [place]) 2 spray NOSTRIL-B DAILY [facility] Last Admin: 03/30/22 07:58 Dose: 2 spray Fluticasone/Vilanterol (Fluticasone/Vilanterol 100/25 Blst.W.Dev) 1 puff INHALE RDAILY [facility] Last Admin: 03/30/22 12:51 Dose: Not Given Guaifenesin/Codeine Phosphate (Guaifen/Codeine Sf 200/20/10ml 10 Ml Liquid) 10 ml PO Q4H PRN PRN Reason: Cough Last Admin: 03/28/22 08:00 Dose: 10 ml Lidocaine (Lidocaine 4 % Patch Adh..Patch) 1 patch TRANSDERMA Q24H PRN PRN Reason: Pain Last Admin: 03/26/22 23:22 Dose: 1 patch Melatonin (Melatonin 3 Mg Tablet) 9 mg PO BEDTIME [facility] Last Admin: 03/29/22 21:00 Dose: 9 mg Nicotine (Nicotine 21 Mg Patch.Td24) 21 mg TRANSDERMA DAILY [facility] Last Admin: 03/30/22 07:57 Dose: 21 mg Nicotine Polacrilex (Nicotine Polacrilex 2 Mg Gum) 2 mg BUCCAL Q2H PRN PRN Reason: Nicotine Cravings Last Admin: 03/26/22 23:23 Dose: 2 mg Ondansetron HCl (Ondansetron Hcl 4 Mg/2 Ml Vial) 4 mg IVPUSH Q8H PRN PRN Reason: Nausea and Vomiting Last Admin: 03/30/22 08:08 Dose: 4 mg Pharmacy Consult (Consult Rx Perform Med Rec) 1 each MISCELLANE ONCE PRN PRN Reason: Consult order Pregabalin (Pregabalin 200 Mg Capsule) 200 mg PO TID [facility] Last Admin: 03/30/22 07:59 Dose: 200 mg Sodium Chloride (0.9 % Sodium Chloride Flush 3 Ml Syringe) 3 ml IVFLUSH QSHIFT [facility] Last Admin: 03/30/22 07:59 Dose: 3 ml Allergies Allergies Allergy/AdvReac Type Severity Reaction Status Date / Time No Known Allergies Allergy Verified 11/16/20 10:49 [No Known Allergies*] Assessment & Plan Assessment & Plan (1) Opioid use disorder, severe, dependence: Status: Acute Code(s): F11.20 - Opioid dependence, uncomplicated Assessment and Plan: * additional 20mg X1 now (total of 30mg today) * tomorrow 40mg daily * discussed case with RSRN --to begin referral to [facility] for continuation of treatment following discharge I spent ____30__ minutes with the patient and/or on the patient floor today, greater than?50% of which was spent counseling/coordinating care.
--- NOTE | 2022-03-30 13:49 | MHC.CM.PN ---
Patient is covid (+); CM spoke over the phone with her at room Ext. [phone]. Patient lives in an apartment with her Mother and she receives her Methadone from [facility]. Home/resume Methadone vs further Care Team Intervention is the goal and CM has initiated and will follow for dc planning. Patient has received NO COVID vax and her PCP is from [facility].
[2022-03-30] MEDS: methADONE HCl 20 MG/2 ML ORAL.CONC PO (13:54)
--- NOTE | 2022-03-30 16:21 | MHC.RECOVRN ---
Followed up with pt after receiving additional 20 mg methadone. Pt awake, alert, easily engages in conversation. Much brighter affect, smiling and laughing, hungry. Pt reports feeling good. Plan to continue methadone titration. Discussed with Deyanira Anaya APRN.
[2022-03-30] MEDS: Melatonin 3 MG TABLET 9 MG PO (20:08)
[2022-03-31] MEDS: 0.9 % Sodium Chloride Flush 3 ML SYRINGE IVFLUSH ×2 (01:00→08:27)
[2022-03-31] MEDS: Acetaminophen 325 MG TABLET 650 MG PO ×3 (02:45→15:07)
[2022-03-31] MEDS: Enoxaparin Sodium 40 MG/0.4 ML SYRINGE SUBCUT (05:45)
[2022-03-31 07:27] VITALS: BP 128/88; PULSE 51; RESP 20; TEMP 36.8; O2SAT 97
[2022-03-31] MEDS: Nicotine 21 MG PATCH.TD24 TRANSDERMA (08:25)
[2022-03-31] MEDS: Pregabalin 200 MG CAPSULE PO ×2 (08:26→15:07)
[2022-03-31] MEDS: methADONE HCl 20 MG/2 ML ORAL.CONC 40 MG PO (08:26)
[2022-03-31] MEDS: Escitalopram Oxalate 5 MG TABLET PO (08:26)
[2022-03-31] MEDS: dexAMETHasone sod phosphate 4 MG/ML VIAL 6 MG IVPUSH (08:27)
[2022-03-31] MEDS: ondansetron HCL 4 MG/2 ML VIAL IVPUSH (08:27)
[2022-03-31] MEDS: guaiFEN/Codeine SF 200/20/10ML 10 ML LIQUID PO ×2 (08:31→15:07)
[2022-03-31] MEDS: Fluticasone Propionate Nasal 16 GM SPRAY 2 SPRAY NOSTRIL-B (08:33)
[2022-03-31 11:14] VITALS: BP 129/79; PULSE 60; RESP 20; TEMP 36.1; O2SAT 93
[2022-03-31 11:15] VITALS: PULSE 72; PULSE 78; PULSE 86; O2SAT 84; O2SAT 89
--- NOTE | 2022-03-31 11:58 | P.DS_ITS ---
DS: Providers Provider Date of Service: 03/31/22 Date of admission: 03/26/22 05:44 Primary care physician: [facility] Consults: 03/26/22 05:43 Addiction Medicine Routine Consulting Provider: Deyanira Anaya Reason for consultation: IVDU, not on methadone or suboxone,likely wth Has provider been notified: No Attending physician on discharge: Rajiv Colbert Discharging clinician: Jael Ray DS: Diagnosis Discharge Diagnosis (1) Opioid use disorder, severe, dependence: Status: Acute DS: Summary Hospital Course Hospital Course: HP as per admitting provider 52-year-old female with past medical history of IV drug use, history of COPD, CVA, depression, GERD, presents to the hospital complaints of shortness of breath, cough, well as chills for the past week and a half.? Patient reports her symptoms worsened today, she has had significant difficulty in breathing.? When asked her if she was vaccinated against COVID she? behaved in a manner to indicate that she is unaware of the vaccine and she is? not sure she has ever been? vaccinated.?Patient denies any headache, no change in vision,? patient reports chest pain with coughing, all over chest, no nausea no vomiting, has had 2-3 episodes of diarrhea with hemorrhoidal bleed, denies any abdominal pain, no urinary symptoms and no lower extremity edema.?On arrival to the ED patient was found to be hypoxic satting in the 80s, currently on 3 L satting 95%, vitals otherwise unremarkable Labs? reviewed show? WBC count of 8.9, pH of 7.45, CO2 of 19, bicarb of 23, UA positive for blood, COVID-19 infection positive, labs otherwise unremarkable chest x-ray shows no dense consolidation, bronchial wall thickening can be seen with small airways process such as asthma or atypical viral infection patient admitted for further management . Acute hypoxic respiratory failure secondary to COVID-19 pneumonia and COPD no evidence of superimposed bacterial infection has no leukocytosis, inflammatory markers trending down Treated with IV dexamethasone , duonebs continue home Breo, Flonase O2sat 88% with ambulation, home with 3 LNC. Follow-up with primary care provider for management of this Hx of substance abuse seen by addiction medicine continue methadone as an outpatient and will follow-up with Addiction Medicine neuropathy Mental health Continue Margarita Das Smoker Discussed the importance of smoking cessation Nicotine replacement therapy offered Time Spent with Patient Time attestation: Total time spent providing and/or coordinating discharge services: Discharge coordination time: Greater than 30 minutes Quality: Safe Use of Opioids Does Pt have an Active Cancer Diagnosis on the Problem List?: No Quality: Stroke Does the patient have a stroke diagnosis?: No Physical Exam Vital Signs: Vital Signs: Last Vital Signs Temp 97.0 F 03/31/22 11:14 Pulse 60 03/31/22 11:14 Resp 20 03/31/22 11:14 BP 129/79 03/31/22 11:14 Pulse Ox 93 03/31/22 11:14 O2 Del Method 03/31/22 11:14 O2 Flow Rate 3 03/31/22 11:14 Oxygen Flow Rate 2 03/26/22 20:58 BMI result Body Mass Index 28.0 Appearing in no acute distress head is normocephalic atraumatic eyes pupils are PERRLA sclera is anicteric mouth throat mucous membranes are intact and moist neck is supple no lymphadenopathy, no JVD noted lung sounds are clear to auscultation heart regular rate rhythm, clear S1, S2 positive bowel sounds, abdomen is soft, nontender neuro patient is alert x3, no focal deficits Discharge Plan Discharge Anticipated Discharge Date/Time: 03/31/22 11:50 Patient Disposition: Home, Self-Care Discharge Diagnosis: Acute hypoxic respiratory failure secondary to COVID-19 Referrals: [facility] [Primary Care Provider] - 1 Week Discharge Medications: New dexamethasone [Decadron] 6 mg tablet 6 mg PO DAILY Qty: 4 0RF Continued fluticasone propionate 50 mcg/actuation spray,suspension 2 spray intranasal QAM pregabalin 200 mg capsule 1 cap PO TID fluticasone propion-salmeterol [Advair Diskus] 250-50 mcg/dose blister with device 1 puff PO Q12H lidocaine [Lidoderm] 5 % adhesive patch,medicated 1 patch topical Q24H PRN (Reason: Pain) escitalopram oxalate 5 mg tablet 1 tab PO DAILY melatonin 10 mg tablet 1 tab PO BEDTIME Discharge Orders: Discharge Order (Routine); Ordered 03/31/22 Ordered By: Jael Ray Diet: Advance to usual diet Activity on Discharge: As tolerated Stand Alone Forms: Patient Portal Discharge page Care Plan Goals: Monitor oxygen saturation with oxygen on Health Concerns: Acute hypoxic respiratory failure secondary to COVID-19 Plan of Treatment: Follow-up with primary care provider as needed You will be sent home with 3 L of oxygen. Please follow-up with primary care provider for continuation or discontinuation. Once her oxygen saturations remained above 90% with ambulation your oxygen may be discontinued. Assessment: see discharge summary
--- NOTE | 2022-03-31 12:58 | MHC.CM.PN ---
Female 52 DX Covid+ she is discharged today. She qualifies for new home oxygen. [facility] will provide the home O2. She will transport to home via S; which she qualifies for r/t covid+ and New Oxygen.
== END 2022-03-31 17:45 | disposition home or self-care (01) | DRG 137 ==
LOC: HO.ED 03:13 → HO.EDOVER 05:49 → HO.IMC 03-29 16:28
PROVIDERS: Physician Assistant Medical; Admitting Provider Internal Medicine; Emergency Provider Student in an Organized Health Care Education/Training Program; Visit Provider Nurse Practitioner Acute Care
DX: U07.1 COVID-19 (principal); J96.01 Acute respiratory failure with hypoxia; J12.82 Pneumonia due to coronavirus disease 2019; J44.0 Chronic obstructive pulmonary disease with (acute) lower respiratory infection; J44.1 Chronic obstructive pulmonary disease with (acute) exacerbation; K21.9 Gastro-esophageal reflux disease without esophagitis; F17.210 Nicotine dependence, cigarettes, uncomplicated; Z71.6 Tobacco abuse counseling; F11.23 Opioid dependence with withdrawal; F32.A Depression, unspecified; Z79.51 Long term (current) use of inhaled steroids; Z79.899 Other long term (current) drug therapy
CPT/HCPCS: 36415; 71045; 80048; 80053; 80076; 80307; 81001; 82728; 82803; 83605; 83615; 84145; 84484; 85025; 85610; 86140; 87040; 87635; 93005; 94640; 96374; 97161; 99285; J1100; J1650; J2405; J2930

== ENCOUNTER 2022-05-26 03:20 | Inpatient (IN) | payer MEDICAID, SELFPAY ==
[2022-05-26] VITALS (11 sets, daily range): BP systolic 90–108; BP diastolic 40–69; PULSE 70–130; RESP 10–20; TEMP 36.7–36.8; O2SAT 91–98; BMI 23.8
--- NOTE | ~2022-05-26 | CT_ITS ---
EXAMINATION: NONCONTRAST HEAD CT NONCONTRAST CERVICAL SPINE CT INDICATION INFORMATION: Fall. Pain. COMPARISON: 07/07/2017 TECHNIQUE: Separate noncontrast CT examinations of the head and cervical spine were performed. Coronal and sagittal images were created for each examination at the technologist workstation. This CT examination was performed using dose optimization techniques as appropriate, variously including the following: *Automated exposure control *Adjustment of mA and/or kV according to patient size (this includes techniques or standardized protocols for targeted exams where dose is matched to indication/reason for exam; i.e. extremities or head) *Use of iterative reconstruction technique DLP: 631 mGy-cm FINDINGS: Head: There is no evidence of acute intracranial hemorrhage or territorial infarction. No abnormal mass effect or midline shift is seen. Cassidy to white matter differentiation is well preserved. No extra-axial fluid collections are identified. No hydrocephalus. No significant volume loss. Chronic left MCA distribution infarct unchanged. Also unchanged is a small right cerebellar infarct. Patchy periventricular and deep white matter hypoattenuation is consistent with mild small vessel ischemic changes. No acute osseous or soft tissue abnormality. The mastoid air cells and visualized portions of the paranasal sinuses are well aerated. Cervical spine: There is anatomic alignment of the vertebral bodies and posterior elements. The atlantoaxial and atlantooccipital articulations are intact. Vertebral body heights are maintained. End plate osteophytes present at C4-C5, C5-C6 and C6-C7. No evidence of acute fracture. No prevertebral soft tissue swelling. Lung apices show moderate emphysema. The thyroid gland is unremarkable. CT/CT cervical spine wo IV con IMPRESSION: * No acute intracranial pathology. * Old left MCA distribution and small right cerebellar infarcts. * No acute cervical spine fracture or traumatic malalignment.
--- NOTE | ~2022-05-26 | XR_ITS ---
EXAMINATION: XR CHEST CLINICAL INFORMATION: Hypoxia COMPARISON: 03/26/2022 TECHNIQUE: Frontal view of the chest was obtained. FINDINGS: Bilateral mid and lower lung streaky and patchy airspace opacities. Small bilateral pleural effusions. Normal heart size and pulmonary vascularity. No acute osseous abnormalities. XR/XR chest 1V IMPRESSION: * Bilateral lower lung streaky and patchy airspace opacities could be compatible with aspiration and/or multifocal pneumonia. * Small bilateral pleural effusions.
--- NOTE | 2022-05-26 04:24 | ED.FALL ---
HPI - Fall General Chief Complaint: Fall Stated Complaint: POSSIBLE SYNCOPE Time Seen by Provider: 05/26/22 04:23 Source: patient and EMS Mode of arrival: EMS Limitations: no limitations History of Present Illness HPI Narrative: Patient 52 years old with history of COPD substance abuse epilepsy recent acute hypoxic respiratory failure from COVID 19 discharged on 03/31/2022 was found on the floor confused with SpO2 in 80s patient does have history of seizures no signs of trauma patient has been coughing for last few days had fever also 103 , 3 days ago Related Data Home Medications Medication Instructions Recorded Confirmed fluticasone propionate 50 2 spray intranasal QAM 11/26/20 03/26/22 mcg/actuation nasal spray,suspension pregabalin 200 mg capsule 1 cap PO TID 11/26/20 05/26/22 lidocaine 5 % topical patch 1 patch topical Q24H PRN Pain 03/26/22 05/26/22 (Lidoderm) melatonin 10 mg tablet 1 tab PO BEDTIME 03/26/22 03/26/22 albuterol sulfate 90 mcg/actuation 2 puff inhalation QID 05/26/22 05/26/22 aerosol inhaler (ProAir HFA) escitalopram oxalate 10 mg tablet 1 tab PO DAILY 05/26/22 05/26/22 fluticasone 500 mcg-salmeterol 50 1 puff inhalation BID 05/26/22 05/26/22 mcg/dose blistr powdr for inhalation (Advair Diskus) nicotine 21 mg/24 hr daily 1 patch topical DAILY 05/26/22 05/26/22 transdermal patch Allergies Allergy/AdvReac Type Severity Reaction Status Date / Time No Known Allergies Allergy Verified 11/16/20 10:49 [No Known Allergies*] Review of Systems Review of Systems: Yes all other systems are reviewed and are negative PMF Past Medical History Medical History Chronic idiopathic constipation Chronic knee pain Chronic low back pain COPD (chronic obstructive pulmonary disease) Depression GERD (gastroesophageal reflux disease) History of CVA (cerebrovascular accident) Insomnia Lab test positive for detection of COVID-19 virus Mixed stress and urge incontinence Opioid use disorder, severe, dependence Smoker Substance use Surgical History No pertinent past surgical history Social History Social History Household Members: Family and Children Housing: Apartment Do you presently have visiting nurse or other home services: No (mother has services) Alcohol intake: unknown Patient Tobacco Use Status: Current everyday Tobacco user Tobacco use type: Cigarette Cigarette Packs Per Day: 1 Cigarettes Per Day: 20.0 e-Cigarette/Vaping Use: Never Used Second Hand Smoke Exposure: No Substance Use Type: Heroin and Marijuana Advance Directives: No Advance Directives Information Provided: Yes service: No Current occupational status: disabled Physical Exam Vital Signs: Vital Signs: Last Vital Signs Temp 98.1 F 05/26/22 06:11 Pulse 81 05/26/22 07:35 Resp 12 05/26/22 07:35 BP 101/40 L 05/26/22 07:35 Pulse Ox 98 05/26/22 07:35 O2 Del Method 05/26/22 07:35 O2 Flow Rate 4 05/26/22 07:35 Oxygen Flow Rate 4 05/26/22 03:30 BMI result Body Mass Index 23.8 Appearance: Alert. Oriented X3. No acute distress. Eyes: PERRLA, No Nystagmus ENT: Pharynx normal. Oral Mucosa moist Neck: Normal inspection. Neck supple. CVS: Normal heart rate and rhythm. Pulses normal. Respiratory: No respiratory distress. Equal air entry bilateral, bilateral crackles diffusely posteriorly Abdomen: Soft and nontender. Bowel sounds are present, no mass palpable, no CVA tenderness Skin: Skin warm and dry. Normal skin color. Normal skin turgor. Extremities: No lower extremity edema. No calf tenderness Neuro: Oriented X 3. No motor deficit. No sensory deficit.No cerebellar signs , cranial nerves II-XII intact MDM - Fall MDM Narrative Medical decision making narrative: Patient has COPD hypoxic recent COVID-19 chest x-ray showing bilateral infiltrate leukocytosis with left shift possible bacterial infection started on Rocephin and doxycycline admit to medical floor patient's lactic acid level is normal patient afebrile but tachycardic meeting the criteria for sepsis but not septic shock Medical Records Attestation: I reviewed the patient's medical records. Lab Data Attestation: I reviewed the patient's lab results. Result diagrams: 05/26/22 05:08 10/18/22 05:08 Labs: Lab Results 05/26/22 05/26/22 05/26/22 Range/Units 05:08 05:08 05:08 WBC 19.2 H (4.8-10.8) X10*3/uL RBC 4.81 (4.20-5.50) X10*6/uL Hgb 13.5 (12.0-16.0) g/dl Hct 42.5 (37.0-47.0) % MCV 88.4 (80.0-98.0) fL MCH 28.1 (27.0-33.0) pg MCHC 31.8 (31.0-35.0) g/dl RDW 15.6 (11.0-16.0) % Plt Count 214 D (160-400) X10*3/uL MPV 9.6 (9.4-12.3) fL Immature Gran % (Auto) Cancelled Neut % (Auto) Cancelled Lymph % (Auto) Cancelled [place] % (Auto) Cancelled Eos % (Auto) Cancelled Baso % (Auto) Cancelled Lymph # (Auto) Cancelled [place] # (Auto) Cancelled Eos # (Auto) Cancelled Baso # (Auto) Cancelled Abs Immat Gran (auto) Cancelled Absolute Neuts (auto) Cancelled Absolute Nucleated RBC 0.000 (0.0-0.012) X10*3/uL Nucleated RBC % (auto) 0.0 (0.0-0.2) /100WBC Neutrophils % (Manual) 78 H (45-73) % Band Neutrophils % 15 H (3-5) % Lymphocytes % (Manual) 4 L (20-40) % Monocytes % (Manual) 3 (2-11) % Abs Neuts (Manual) 17.9 H (2.0-8.3) X10*3/uL Lymphocytes # (Manual) 0.8 L (1.2-4.9) X10*3/uL Monocytes # (Manual) 0.6 (0.1-1.2) X10*3/uL Platelet Estimate NORMAL (NORMAL) Plt Morphology Comment NORMAL RBC Morphology NORMAL Sodium 140 (135-145) mmol/L Potassium 4.1 (3.3-5.1) mmol/L Chloride 103 (96-108) mmol/L Carbon Dioxide 24 (22-29) mmol/L Anion Gap 17 (12-20) BUN 12 (9-16) mg/dL Creatinine 0.60 (0.5-1.4) mg/dL Estim Creat Clear Calc 85.7 Estimated GFR > 60 Random Glucose 102 (60-115) mg/dL Lactic Acid (0.5-2.0) mmol/L Calcium 8.7 (8.4-10.2) mg/dL Total Bilirubin 0.8 (0.0-1.0) mg/dL AST 19 (5-31) U/L ALT 17 (0-31) U/L Alkaline Phosphatase 75 (39-117) U/L Total Protein 6.7 (6.5-8.0) g/dL Albumin 3.8 (3.5-5.0) g/dL COVID-19 (BOONE) Negative (Negative) COVID-19 Clin Com See Note 05/26/22 Range/Units 05:51 WBC (4.8-10.8) X10*3/uL RBC (4.20-5.50) X10*6/uL Hgb (12.0-16.0) g/dl Hct (37.0-47.0) % MCV (80.0-98.0) fL MCH (27.0-33.0) pg MCHC (31.0-35.0) g/dl RDW (11.0-16.0) % Plt Count (160-400) X10*3/uL MPV (9.4-12.3) fL Immature Gran % (Auto) Neut % (Auto) Lymph % (Auto) [place] % (Auto) Eos % (Auto) Baso % (Auto) Lymph # (Auto) [place] # (Auto) Eos # (Auto) Baso # (Auto) Abs Immat Gran (auto) Absolute Neuts (auto) Absolute Nucleated RBC (0.0-0.012) X10*3/uL Nucleated RBC % (auto) (0.0-0.2) /100WBC Neutrophils % (Manual) (45-73) % Band Neutrophils % (3-5) % Lymphocytes % (Manual) (20-40) % Monocytes % (Manual) (2-11) % Abs Neuts (Manual) (2.0-8.3) X10*3/uL Lymphocytes # (Manual) (1.2-4.9) X10*3/uL Monocytes # (Manual) (0.1-1.2) X10*3/uL Platelet Estimate (NORMAL) Plt Morphology Comment RBC Morphology Sodium (135-145) mmol/L Potassium (3.3-5.1) mmol/L Chloride (96-108) mmol/L Carbon Dioxide (22-29) mmol/L Anion Gap (12-20) BUN (9-16) mg/dL Creatinine (0.5-1.4) mg/dL Estim Creat Clear Calc Estimated GFR Random Glucose (60-115) mg/dL Lactic Acid 0.8 (0.5-2.0) mmol/L Calcium (8.4-10.2) mg/dL Total Bilirubin (0.0-1.0) mg/dL AST (5-31) U/L ALT (0-31) U/L Alkaline Phosphatase (39-117) U/L Total Protein (6.5-8.0) g/dL Albumin (3.5-5.0) g/dL COVID-19 (BOONE) (Negative) COVID-19 Clin Com Discharge Plan Discharge Clinical Impression: Bilateral pneumonia, Acute respiratory failure with hypoxemia, COPD (chronic obstructive pulmonary disease) Patient Disposition: Admitted As Inpatient
[2022-05-26 05:13] LABS: Hematocrit 42.5 % (37.0-47.0); Hemoglobin 13.5 g/dl (12.0-16.0); Mean Corpuscular HGB Conc 31.8 g/dl (31.0-35.0); Mean Corpuscular Hemoglobin 28.1 pg (27.0-33.0); Mean Corpuscular Volume 88.4 fL (80.0-98.0); Mean Platelet Volume 9.6 fL (9.4-12.3); Platelet Count 214 X10*3/uL (160-400); Red Blood Count 4.81 X10*6/uL (4.20-5.50); Red Cell Distribution Width 15.6 % (11.0-16.0); White Blood Count 19.2 X10*3/uL (4.8-10.8)
[2022-05-26 05:33] LABS: Alanine Aminotransferase 17 U/L (0-31); Albumin Level 3.8 g/dL (3.5-5.0); Alkaline Phosphatase 75 U/L (39-117); Anion Gap 17 (12-20); Aspartate Amino Transferase 19 U/L (5-31); Bilirubin Total 0.8 mg/dL (0.0-1.0); Blood Urea Nitrogen 12 mg/dL (9-16); Calcium 8.7 mg/dL (8.4-10.2); Carbon Dioxide 24 mmol/L (22-29); Chloride 103 mmol/L (96-108); Creatinine Clr Calc Pharmacy 85.7; Estimated Glomerular Filt Rate > 60; Glucose Random 102 mg/dL (60-115); Potassium 4.1 mmol/L (3.3-5.1); Sodium 140 mmol/L (135-145); Total Protein 6.7 g/dL (6.5-8.0)
[2022-05-26 05:36] LABS: Band Neutrophils Percent 15 % (3-5); Lymphocytes Absolute Manual 0.8 X10*3/uL (1.2-4.9); Lymphocytes Percent Manual 4 % (20-40); Monocytes Absolute Manual 0.6 X10*3/uL (0.1-1.2); Monocytes Percent Manual 3 % (2-11); Neutrophils Absolute Manual 17.9 X10*3/uL (2.0-8.3); Neutrophils Percent Manual 78 % (45-73)
[2022-05-26 05:37] LABS: Platelet Estimate NORMAL (NORMAL); Platelet Morphology Comment NORMAL; RBC Morphology NORMAL
[2022-05-26 05:43] LABS: COVID-19 Test Negative (Negative)
[2022-05-26] MEDS: cefTRIAXone sodium 1 GM in 0.9 % Sodium Chloride 50 ML IV (06:03)
[2022-05-26] MEDS: 0.9 % Sodium Chloride 1,000 ML 999 ML IV (06:04)
[2022-05-26 06:14] LABS: Lactic Acid 0.8 mmol/L (0.5-2.0)
[2022-05-26] MEDS: Doxycycline Hyclate 100 MG in 0.9 % Sodium Chloride 250 ML 166.67 MG IV ×2 (06:42→19:05)
[2022-05-26] MEDS: Albuterol Sulfate 2.5 MG, Albuterol/Iprat 2.5/0.5MG 3 ML 3 ML INHALE (07:31)
--- NOTE | 2022-05-26 08:23 | PHA.MEDREC ---
Pharmacy Consult ? Medication Reconciliation Pharmacy has completed the medication reconciliation. Patient confirmed all medications. Kelley Richardson, KelseyD
--- NOTE | 2022-05-26 08:33 | PC.NURSE ---
pt. alert and oriented x3. a little disoriented as to time of the day. O2sat 96 on 4L nc. Lung sounds clear on the upper lobes, lower lobes sounds diminished. She asked for her purse and soon after asked to go to the bathroom. When she came back she looked a little bit out of it. She did say her stomach was hurting. now resting comfortably.
--- NOTE | 2022-05-26 08:54 | HE.PHANOTE ---
Methdone Verification Received verification form- 50mg daily from [facility] pt given take home doses on 05/25/22 for 05/26 and 05/27
[2022-05-26] MEDS: Lactated Ringers 1,000 ML 999 ML IV (10:29)
[2022-05-26] MEDS: Enoxaparin Sodium 40 MG/0.4 ML SYRINGE SUBCUT (10:38)
[2022-05-26] MEDS: Ampicillin Sodium/Sulbactam Na 3 GM in 0.9 % Sodium Chloride 100 ML IV ×3 (10:38→21:42)
--- NOTE | 2022-05-26 11:28 | P.HPHOSP_ITS ---
History of Present Illness Date of Service: 05/26/22 Attending physician on admission: Rajiv Colbert Chief Complaint: sob, cough, fevers, confusion 52-year-old female with past medical history of IV drug use on methadone, history of COPD, 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 He mother states she had been in the living room when her mother reports she passed out with unclear duration and was found confused on the floor. The patient does not recall fainting. She does have a history of seizures and mother describes these as absence seizures but she does not follow with neurology and is not on any antiepileptic drugs. Her mother states last definitive seizure was 2 days ago. On arrival to the ED there is no evidence of trauma including tongue biting. She was recently discharged from our facility on 03/31 after being hospitalized for COVID 19 infection with acute hypoxic respiratory failure. On arrival to ED, blood pressure borderline at 98/59, HR 122. Oximetry was 91% and she was started on 4 units O2 via nasal cannula. WBC 19.2 with bandemia. Renal function and electrolyte levels normal. CXR showing small bilateral pleural effusions and bilateral lower lung streaky and patchy airspace opacities possibly compatible with aspiration and/or multifocal pneumonia. Head CT and cervical spine CT without acute abnormality. Patient to be admitted for bilateral lower lobe pneumonia, COPD exacerbation with acute hypoxemic respiratory failure requiring supplemental O2, and syncopal episode of unclear etiology. Patient requesting to eat but is quite somnolent on exam. Review of Systems Review of Systems: General: No fevers, malaise, unintentional weight loss HEENT: No blurred vision or diplopia Cardiovascular: No chest pain, palpitations, or leg edema Respiratory: + shortness of breath, +wheezing, +cough GI: No abdominal pain, nausea, vomiting, diarrhea, constipation, melena, hematochezia : No dysuria, hematuria, increased urinary frequency. Does report occasional urinary incontinence at baseline MSK: Reports diffuse myalgia Neuro: + syncope. No headaches, weakness, paresthesias Skin: No rashes or lesions PMFSH Medical History (Updated 05/26/22 @ 13:28 by ERIC Parrish) Chronic idiopathic constipation Chronic knee pain Chronic low back pain COPD (chronic obstructive pulmonary disease) Depression GERD (gastroesophageal reflux disease) History of CVA (cerebrovascular accident) Insomnia Lab test positive for detection of COVID-19 virus Mixed stress and urge incontinence Opioid use disorder, severe, dependence Smoker Substance use Syncope Family History Sister Breast cancer Surgical History No pertinent past surgical history Social History Household Members: Family and Children Housing: Apartment Do you presently have visiting nurse or other home services: No (mother has services) Alcohol intake: unknown Patient Tobacco Use Status: Current everyday Tobacco user Tobacco use type: Cigarette Cigarette Packs Per Day: 1 Cigarettes Per Day: 20.0 e-Cigarette/Vaping Use: Never Used Second Hand Smoke Exposure: No Substance Use Type: Heroin and Marijuana Advance Directives: No Advance Directives Information Provided: Yes service: No Current occupational status: disabled Meds Allergies Allergy/AdvReac Type Severity Reaction Status Date / Time No Known Allergies Allergy Verified 11/16/20 10:49 [No Known Allergies*] Active Medications: Current Medications Acetaminophen (Acetaminophen 325 Mg Tablet) 650 mg PO Q6H PRN PRN Reason: Pain, Mild (Pain Scale 1-3) Albuterol Sulfate (Albuterol Sulfate 90 Mcg 8 Gm Inhaler) 2 puff INHALE QID PRN PRN Reason: Wheezing Enoxaparin Sodium (Enoxaparin Sodium 40 Mg/0.4 Ml Syringe) 40 mg SUBCUT Q24H SC H Last Admin: 05/26/22 10:38 Dose: 40 mg Escitalopram Oxalate (Escitalopram Oxalate 10 Mg Tablet) 10 mg PO DAILY CALLIE Ampicillin Sodium/Sulbactam (Sodium 3 gm/ Sodium Chloride) 100 mls @ 200 mls/hr IV Q6H CALLIE Last Admin: 05/26/22 10:38 Dose: 200 mls/hr Melatonin (Melatonin 3 Mg Tablet) 9 mg PO BEDTIME PRN PRN Reason: Insomnia Ondansetron HCl (Ondansetron Hcl 4 Mg/2 Ml Vial) 4 mg IVPUSH Q8H PRN PRN Reason: Nausea and Vomiting Pregabalin (Pregabalin 200 Mg Capsule) 200 mg PO TID [facility] Sodium Chloride (0.9 % Sodium Chloride Flush 3 Ml Syringe) 3 ml IVFLUSH QSHIFT [facility] Home Medications Medication Instructions Recorded Confirmed Last Taken Type fluticasone propionate 50 2 spray intranasal QAM 11/26/20 05/26/22 05/25/22 History mcg/actuation nasal spray,suspension pregabalin 200 mg capsule 1 cap PO TID 11/26/20 05/26/22 05/25/22 History lidocaine 5 % topical patch 1 patch topical Q24H PRN Pain 03/26/22 05/26/22 05/25/22 History (Lidoderm) melatonin 10 mg tablet 1 tab PO BEDTIME PRN Insomnia 03/26/22 05/26/22 05/25/22 History albuterol sulfate 90 mcg/actuation 2 puff inhalation QID PRN Wheezing 05/26/22 05/26/22 05/25/22 History aerosol inhaler (ProAir HFA) escitalopram oxalate 10 mg tablet 1 tab PO DAILY 05/26/22 05/26/22 05/25/22 History fluticasone 500 mcg-salmeterol 50 1 puff inhalation BID 05/26/22 05/26/22 05/25/22 History mcg/dose blistr powdr for inhalation (Advair Diskus) methadone 10 mg/mL oral concentrate 50 mg PO DAILY 05/26/22 05/26/22 05/25/22 History nicotine 21 mg/24 hr daily 1 patch topical DAILY 05/26/22 05/26/22 05/25/22 History transdermal patch Physical Exam Vital Signs and Narrative: Vital Signs: Last Vital Signs Temp 98.2 F 05/26/22 08:14 Pulse 71 05/26/22 10:25 Resp 18 05/26/22 10:25 BP 90/52 L 05/26/22 10:25 Pulse Ox 97 05/26/22 10:25 O2 Del Method 05/26/22 10:25 O2 Flow Rate 4 05/26/22 10:25 Oxygen Flow Rate 4 05/26/22 03:30 BMI result Body Mass Index 23.8 Constitutional - Awake and somnolent. No apparent distress Eyes - PERRLA, EOMI Cardiovascular - S1S2, RRR, No edema Respiratory - Scattered wheezes bilaterally with rhonchi bilateral lower lobes. Normal lung expansion, Normal respiratory effort, No respiratory distress on 2L o2 Gastrointestinal - NT / ND; +BS; No rebound or guarding Extremities - no calf tenderness bilaterally, no swelling Skin - Warm/Dry Neurological - Intermittently somnolent & oriented x3, CN II -XII in tact, 4/5 strength right extremities, 5/5 strength left extremities Psychological - Appropriate affect Results Labs CBC and Chem 7: 05/26/22 05:08 05/26/22 05:08 Labs: Laboratory Results - last 24 hr 05/26/22 05/26/22 05/26/22 05:08 05:08 05:08 MCV 88.4 MCH 28.1 MCHC 31.8 RDW 15.6 Plt Count 214 D MPV 9.6 Immature Gran % (Auto) Cancelled Neut % (Auto) Cancelled Lymph % (Auto) Cancelled Powell % (Auto) Cancelled Eos % (Auto) Cancelled Baso % (Auto) Cancelled Lymph # (Auto) Cancelled Powell # (Auto) Cancelled Eos # (Auto) Cancelled Baso # (Auto) Cancelled Abs Immat Gran (auto) Cancelled Absolute Neuts (auto) Cancelled Absolute Nucleated RBC 0.000 Nucleated RBC % (auto) 0.0 Neutrophils % (Manual) 78 H Band Neutrophils % 15 H Lymphocytes % (Manual) 4 L Monocytes % (Manual) 3 Abs Neuts (Manual) 17.9 H Lymphocytes # (Manual) 0.8 L Monocytes # (Manual) 0.6 Platelet Estimate NORMAL Plt Morphology Comment NORMAL RBC Morphology NORMAL Anion Gap 17 Estim Creat Clear Calc 85.7 Estimated GFR > 60 Random Glucose 102 Lactic Acid Calcium 8.7 Total Bilirubin 0.8 AST 19 ALT 17 Alkaline Phosphatase 75 Total Protein 6.7 Albumin 3.8 COVID-19 (BOONE) Negative COVID-19 Clin Com See Note 05/26/22 05:51 MCV MCH MCHC RDW Plt Count MPV Immature Gran % (Auto) Neut % (Auto) Lymph % (Auto) Powell % (Auto) Eos % (Auto) Baso % (Auto) Lymph # (Auto) Powell # (Auto) Eos # (Auto) Baso # (Auto) Abs Immat Gran (auto) Absolute Neuts (auto) Absolute Nucleated RBC Nucleated RBC % (auto) Neutrophils % (Manual) Band Neutrophils % Lymphocytes % (Manual) Monocytes % (Manual) Abs Neuts (Manual) Lymphocytes # (Manual) Monocytes # (Manual) Platelet Estimate Plt Morphology Comment RBC Morphology Anion Gap Estim Creat Clear Calc Estimated GFR Random Glucose Lactic Acid 0.8 Calcium Total Bilirubin AST ALT Alkaline Phosphatase Total Protein Albumin COVID-19 (BOONE) COVID-19 Clin Com Imaging Radiologist's Impressions: Impressions Chest X-Ray 05/26/22 04:46 IMPRESSION: * Bilateral lower lung streaky and patchy airspace opacities could be compatible with aspiration and/or multifocal pneumonia. * Small bilateral pleural effusions. Cervical Spine CT 05/26/22 05:00 IMPRESSION: * No acute intracranial pathology. * Old left MCA distribution and small right cerebellar infarcts. * No acute cervical spine fracture or traumatic malalignment. Head CT 05/26/22 05:00 IMPRESSION: * No acute intracranial pathology. * Old left MCA distribution and small right cerebellar infarcts. * No acute cervical spine fracture or traumatic malalignment. Assessment and Plan (1) Bilateral pneumonia: Status: Acute (2) Acute respiratory failure with hypoxemia: Status: Acute (3) COPD (chronic obstructive pulmonary disease): Status: Acute (4) Syncope: Status: Acute (5) Sepsis: Status: Acute Plan 52-year-old female with past medical history of IV drug use on methadone, history of COPD, CVA 20 years ago with sequela right-sided hemiparesis ambulating with cane or walker at baseline occasionally using wheelchair, depression, GERD, and epilepsy who is a 5 cigarette per day admitted for bilateral lower lobe pneumonia with sepsis and acute respiratory failure with hypoxemia, acute COPD exacerbation, and the syncopal episode of unclear etiology. # sepsis-secondary to pneumonia -leukocytosis 19.2, tachycardic to 122. Low normal BP down to 90/52 improved to 102/64 on recheck, low BP likely incorrect reading. Lactic acid normal. No severe sepsis -received IV ceftriaxone and doxycycline. Changed to Unasyn and doxycycline. -continue IVF. Follow BMP -follow CBC, monitor vitals closely # acute hypoxemic respiratory failure-secondary to bilateral lower lobe pneumonia and COPD exacerbation -O2 saturation noted to be in the 80s by EMS placed on 2 L of O2 via nasal cannula -continue supplemental O2 to maintain oxygen saturation > 92% -treat pneumonia and COPD exacerbation as per below # bilateral lower lobe pneumonia, possibly aspiration versus multifocal pneumonia with sepsis -received IV ceftriaxone and doxycycline. Changed to Unasyn for aspiration and IV doxycycline for MRSA coverage given history of IV drug abuse -keep NPO for now due to intermittent somnolence to prevent aspiration -Swallow eval pending -guaifenesin p.r.n. for cough # acute severe COPD exacerbation with acute hypoxemic respiratory failure -albuterol nebs p.r.n. -IV solumedrol -continue home maintenance inhalers -Supplemental O2 as above -treatment for pneumonia as above #? Syncopal episode-etiology unclear -patient's mother reports patient passed out with unclear duration of LOC, found on the floor confused -patient and her mother reported seizure history, seems consistent with absence seizures per her mother's description, but does not follow with Neurology and is not on any antiepileptics except lyrica -BP low normal, but no true hypotension to explain possible syncope -continue IVF -neuro consult placed -seizure precautions #Seizure disorder- based on history seems consistent with absence seizures -continue Lyrica. Not on any other antiepileptics -mother reports recurrent absence seizures at home. Question seizure related to syncopal episode as above -neuro consulted -will need outpatient neuro follow-up # history CVA 20 years ago with sequela right-sided hemiparesis using cane or walker at baseline -reporting increased weakness with falls. Head CT and cervical spine CT without acute abnormality -not on statin or antiplatelet -PT/OT consult for worsening right-sided weakness # opiate dependence -history IV drug abuse. Denies any recent use -continue methadone # nicotine dependence -smokes 5 cigarettes daily. -cessation counseling offered -patches for NRT # chronic low back pain -on methadone. Continue lidocaine patches and Tylenol p.r.n. continue Lyrica DVT prophylaxis-Lovenox Full code Patient requires inpatient stay of at least 2 midnights due to bilateral lower lobe pneumonia with sepsis and acute hypoxemic respiratory failure and severe COPD exacerbation requiring supplemental O2, IV steroids, IVF, and IV antibiotics as well as close monitoring of respiratory status. Quality Stroke Does the patient have a stroke diagnosis?: No VTE Prior VTE?: No VTE Risk Level:: Medical - moderate - high VTE Device Contraindication: Treatment Not Indicated VTE Drug Contraindication: N/A - Med Ordered
[2022-05-26] MEDS: methADONE HCl 20 MG/2 ML ORAL.CONC 50 MG PO (13:25)
--- NOTE | 2022-05-26 14:49 | MHC.SL.SWA ---
Speech Pathologist Impression: Swallow is WFL, no evidence of dysphagia Risk of Aspiration Due to: Neurological Condition History of Pneumonia Dysphasia Diet Status: Liquid Consistency and Strategies for Safe Swallow: Liquid Intake Recommendation: Thin Liquid Intake Strategies: Unrestricted Solid Food Consistency: Dietary Recommendations: Regular Additional Modifications to Solid Foods: Oral Medication Intake: Whole with Liquid Please contact the pharmacy regarding appropriate crushable or liquid drug formulations that are available whenever modified delivery is recommended. Compensatory Strategies and Precautions to be Taken for Safe Swallow: Sitting Upright (90 deg) Small Bites and Sips Supervision While Eating and Drinking for Safe Swallow: None Needed Foods to Avoid: Swallowing Recommended Treatments: Recommendation for Speech: NA:Typical Evaluation Comment: Patient presents with oral motor function and all aspects of swallow function WFL. Recommend START Regular Diet with THIN liquids, pills whole with liquid. As swallow is WFL, will D/C speech. Recommendation sent to GRACIA PAK by secure text, told in person to ED nurse. Please re-contact if any additional concerns arise. Frequency/Duration: D/C Speech Date Range for Service Req: Timeline to reassess: Hspt Tutor Clinican/Clinical Fellow: No Supervisory Statement: I have reviewed and agree with the student/clinical fellow's documentation: N/A Speech Language Pathologist: Bernadette Dumont M.A., CCC-HUMAN PERFORMANCE CONSULTANT
[2022-05-26] MEDS: methylPREDNISolone Sod Succ 40 MG/ML VIAL IVPUSH (15:04)
[2022-05-26] MEDS: Nicotine 7 MG PATCH.TD24 TRANSDERMA (15:05)
[2022-05-26] MEDS: Lactated Ringers 1,000 ML 100 ML IVCONT ×2 (15:28→21:56)
--- NOTE | 2022-05-26 16:35 | PM.NEUROCN ---
History of Present Illness Data of Consult Service Date: 05/26/22 Primary Care Provider: [facility] Reason for consult: seizure, syncope, AMS 52-year-old female with past medical history of IV drug use on methadone, history of COPD, CVA 20 years ago with sequela right-sided hemiparesis ambulating with cane or walker at baseline occasionally using wheelchair, depression, GERD, and epilepsy was found on the floor confused with a CO2 in the 80swith cough and shortness of breath ongoing for several days with fevers up to 103. Mother reports she passed out with unclear duration and was found confused on the floor. The patient does not recall fainting. 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 Her mother states last definitive seizure was 2 days ago.?No evidence of trauma including tongue biting.? She was recently discharged from our facility on 03/31 after being hospitalized for COVID 19 infection with acute hypoxic respiratory failure and was positive for cocaine ,marijuana and opiates.? On arrival to ED, blood pressure borderline at 98/59, HR 122.? Oximetry was 91% and she was started on 4 units O2 via nasal cannula.? WBC 19.2 with bandemia.? Renal function and electrolyte levels normal. CXR showing small bilateral pleural effusions and bilateral lower lung streaky and patchy airspace opacities possibly compatible with aspiration and/or multifocal pneumonia.? Head CT and cervical spine CT without acute abnormality.? Patient to be admitted for bilateral lower lobe pneumonia, COPD exacerbation with acute hypoxemic respiratory failure requiring supplemental O2, and syncopal episode of unclear etiology. Review of Systems Review of Systems: General: No fevers, malaise, unintentional weight loss HEENT: No blurred vision or diplopia Cardiovascular: No chest pain, palpitations, or leg edema Respiratory: + shortness of breath, +wheezing, +cough GI: No abdominal pain, nausea, vomiting, diarrhea, constipation, melena, hematochezia : No dysuria, hematuria, increased urinary frequency. Does report occasional urinary incontinence at baseline MSK: Reports diffuse myalgia Neuro: + syncope. No headaches, weakness, paresthesias Skin: No rashes or lesions Yes all other systems are reviewed and are negative [facility] Past Medical History Medical History (Updated 05/26/22 @ 13:28 by ERIC Parrish) Chronic idiopathic constipation Chronic knee pain Chronic low back pain COPD (chronic obstructive pulmonary disease) Depression GERD (gastroesophageal reflux disease) History of CVA (cerebrovascular accident) Insomnia Lab test positive for detection of COVID-19 virus Mixed stress and urge incontinence Opioid use disorder, severe, dependence Smoker Substance use Syncope Family History Family History Sister Breast cancer Surgical History Surgical History No pertinent past surgical history Social History Social History Household Members: Family and Children Housing: Apartment Do you presently have visiting nurse or other home services: No (mother has services) Alcohol intake: unknown Patient Tobacco Use Status: Current everyday Tobacco user Tobacco use type: Cigarette Cigarette Packs Per Day: 1 Cigarettes Per Day: 20.0 e-Cigarette/Vaping Use: Never Used Second Hand Smoke Exposure: No Substance Use Type: Heroin and Marijuana Advance Directives: No Advance Directives Information Provided: Yes service: No Current occupational status: disabled Meds Allergies Allergy/AdvReac Type Severity Reaction Status Date / Time No Known Allergies Allergy Verified 11/16/20 10:49 [No Known Allergies*] Active Medications: Current Medications Acetaminophen (Acetaminophen 325 Mg Tablet) 650 mg PO Q6H PRN PRN Reason: Pain, Mild (Pain Scale 1-3) Albuterol Sulfate (Albuterol Sulfate 90 Mcg 8 Gm Inhaler) 2 puff INHALE QID PRN PRN Reason: Wheezing Enoxaparin Sodium (Enoxaparin Sodium 40 Mg/0.4 Ml Syringe) 40 mg SUBCUT Q24H [facility] Last Admin: 05/26/22 10:38 Dose: 40 mg Escitalopram Oxalate (Escitalopram Oxalate 10 Mg Tablet) 10 mg PO DAILY CALLIE Guaifenesin (Guaifenesin 200 Mg/10 Ml 10 Ml Liquid) 10 ml PO Q6H PRN PRN Reason: Cough Ampicillin Sodium/Sulbactam (Sodium 3 gm/ Sodium Chloride) 100 mls @ 200 mls/hr IV Q6H [facility] Last Infusion: 05/26/22 15:58 Dose: Infused Lactated Ringer's (Lr) 1,000 mls @ 100 mls/hr IVCONT .Q10H [facility] Stop: 05/27/22 08:29 Last Admin: 05/26/22 15:28 Dose: 100 mls/hr Doxycycline Hyclate 100 mg/ (Sodium Chloride) 250 mls @ 166.67 mls/hr IV Q12H [facility] Melatonin (Melatonin 3 Mg Tablet) 9 mg PO BEDTIME PRN PRN Reason: Insomnia Methadone HCl (Methadone Hcl 20 Mg/2 Ml Oral.Conc) 50 mg PO DAILY [facility] Last Admin: 05/26/22 13:25 Dose: 50 mg Methylprednisolone Sodium Succinate (Methylprednisolone Sod Succ 40 Mg/Ml Vial) 40 mg IVPUSH Q24H [facility] Last Admin: 05/26/22 15:04 Dose: 40 mg Nicotine (Nicotine 7 Mg Patch.Td24) 7 mg TRANSDERMA DAILY [facility] Last Admin: 05/26/22 15:05 Dose: 7 mg Ondansetron HCl (Ondansetron Hcl 4 Mg/2 Ml Vial) 4 mg IVPUSH Q8H PRN PRN Reason: Nausea and Vomiting Pregabalin (Pregabalin 200 Mg Capsule) 200 mg PO TID [facility] Sodium Chloride (0.9 % Sodium Chloride Flush 3 Ml Syringe) 3 ml IVFLUSH QSHIFT [facility] Last Admin: 05/26/22 16:17 Dose: Not Given Home Medications Medication Instructions Recorded Confirmed Last Taken Type fluticasone propionate 50 2 spray intranasal QAM 11/26/20 05/26/22 05/25/22 History mcg/actuation nasal spray,suspension pregabalin 200 mg capsule 1 cap PO TID 11/26/20 05/26/22 05/25/22 History lidocaine 5 % topical patch 1 patch topical Q24H PRN Pain 03/26/22 05/26/22 05/25/22 History (Lidoderm) melatonin 10 mg tablet 1 tab PO BEDTIME PRN Insomnia 03/26/22 05/26/22 05/25/22 History albuterol sulfate 90 mcg/actuation 2 puff inhalation QID PRN Wheezing 05/26/22 05/26/22 05/25/22 History aerosol inhaler (ProAir HFA) escitalopram oxalate 10 mg tablet 1 tab PO DAILY 05/26/22 05/26/22 05/25/22 History fluticasone 500 mcg-salmeterol 50 1 puff inhalation BID 05/26/22 05/26/22 05/25/22 History mcg/dose blistr powdr for inhalation (Advair Diskus) methadone 10 mg/mL oral concentrate 50 mg PO DAILY 05/26/22 05/26/22 05/25/22 History nicotine 21 mg/24 hr daily 1 patch topical DAILY 05/26/22 05/26/22 05/25/22 History transdermal patch Physical Exam Vital Signs: Vital Signs: Last Vital Signs Temp 98.2 F 05/26/22 08:14 Pulse 77 05/26/22 15:59 Resp 18 05/26/22 15:59 BP 102/64 05/26/22 15:59 Pulse Ox 97 05/26/22 15:59 O2 Del Method 05/26/22 15:59 O2 Flow Rate 4 05/26/22 15:59 Oxygen Flow Rate 4 05/26/22 03:30 BMI result Body Mass Index 23.8 Neuro: Other: She is alert and oriented with normal cranial nerves. There is no visual field cut. There is no facial asymmetry. There is no tongue biting. Tongue protrudes in the midline. She has no drift of her upper extremities even though she has had a previous stroke. Strength is symmetrical has slight right-sided hyperreflexia. Plantar responses are flexor neck is supple. Results Labs CBC & Chem 7: 05/26/22 05:08 05/26/22 05:08 Labs: Short CBC 05/26/22 Range/Units 05:08 WBC 19.2 H (4.8-10.8) X10*3/uL Hgb 13.5 (12.0-16.0) g/dl Hct 42.5 (37.0-47.0) % Plt Count 214 D (160-400) X10*3/uL BMP 05/26/22 05:08 Sodium 140 Potassium 4.1 Chloride 103 Carbon Dioxide 24 BUN 12 Creatinine 0.60 Calcium 8.7 Liver Function 05/26/22 Range/Units 05:08 Total Bilirubin 0.8 (0.0-1.0) mg/dL AST 19 (5-31) U/L ALT 17 (0-31) U/L Alkaline Phosphatase 75 (39-117) U/L Albumin 3.8 (3.5-5.0) g/dL Assessment and Plan (1) Bilateral pneumonia: Status: Acute (2) Acute respiratory failure with hypoxemia: Status: Acute (3) COPD (chronic obstructive pulmonary disease): Status: Acute (4) Syncope: Status: Acute Probable seizure with post ictal confusion which has cleared. Nonfocal examination in spite of her previous left hemisphere stroke Recommendation treatment of pneumonia. EEG. 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 # sepsis-secondary to pneumonia -leukocytosis 19.2, tachycardic to 122. Low normal BP down to 90/52 improved to 102/64 on recheck, low BP likely incorrect reading. Lactic acid normal. No severe sepsis -received IV ceftriaxone and doxycycline. Changed to Unasyn and doxycycline. -continue IVF. Follow BMP -follow CBC, monitor vitals closely # acute hypoxemic respiratory failure-secondary to bilateral lower lobe pneumonia and COPD exacerbation -O2 saturation noted to be in the 80s by EMS placed on 2 L of O2 via nasal cannula -continue supplemental O2 to maintain oxygen saturation > 92% -treat pneumonia and COPD exacerbation as per below # bilateral lower lobe pneumonia, possibly aspiration versus multifocal pneumonia with sepsis -received IV ceftriaxone and doxycycline. Changed to Unasyn for aspiration and IV doxycycline for MRSA coverage given history of IV drug abuse -keep NPO for now due to intermittent somnolence to prevent aspiration -Swallow eval pending -guaifenesin p.r.n. for cough # acute severe COPD exacerbation with acute hypoxemic respiratory failure -albuterol nebs p.r.n. -IV solumedrol -continue home maintenance inhalers -Supplemental O2 as above -treatment for pneumonia as above #? Syncopal episode-etiology unclear -patient's mother reports patient passed out with unclear duration of LOC, found on the floor confused -patient and her mother reported seizure history, seems consistent with absence seizures per her mother's description, but does not follow with Neurology and is not on any antiepileptics except lyrica -BP low normal, but no true hypotension to explain possible syncope -continue IVF -neuro consult placed -seizure precautions #Seizure disorder- based on history seems consistent with absence seizures -continue Lyrica. Not on any other antiepileptics -mother reports recurrent absence seizures at home. Question seizure related to syncopal episode as above -neuro consulted -will need outpatient neuro follow-up # history CVA 20 years ago with sequela right-sided hemiparesis using cane or walker at baseline -reporting increased weakness with falls. Head CT and cervical spine CT without acute abnormality -not on statin or antiplatelet -PT/OT consult for worsening right-sided weakness # opiate dependence -history IV drug abuse. Denies any recent use -continue methadone # nicotine dependence -smokes 5 cigarettes daily. -cessation counseling offered -patches for NRT # chronic low back pain -on methadone. Continue lidocaine patches and Tylenol p.r.n. continue Lyrica DVT prophylaxis-Lovenox Full code Patient requires inpatient stay of at least 2 midnights due to bilateral lower lobe pneumonia with sepsis and acute hypoxemic respiratory failure and severe COPD exacerbation requiring supplemental O2, IV steroids, IVF, and IV antibiotics as well as close monitoring of respiratory status. Procedures Date of Service Date of Service: 05/26/22
--- NOTE | 2022-05-26 19:10 | PC.NURSE ---
care of patient assumed at 1900. patient found resting in stretcher watching TV. she is alert, oriented x3, and snacking on chocolates. she endorses a trace headache. when asked if her breathing feels better, patient states I don't know, it feels fine. o2 97% on 4L NC so weaned to 3L at this time. call rodriguez within reach.
[2022-05-26] MEDS: Pregabalin 200 MG CAPSULE PO (21:43)
[2022-05-26] MEDS: 0.9 % Sodium Chloride Flush 3 ML SYRINGE IVFLUSH (23:10)
[2022-05-27] VITALS (7 sets, daily range): BP systolic 115–147; BP diastolic 67–100; PULSE 55–65; RESP 14–20; TEMP 36.5–36.8; O2SAT 3–98
--- NOTE | 2022-05-27 | EEG_ITS ---
This is a 16-channel EEG with an EKG lead. The patient is reported awake during the tracing. Background EEG rhythm is mixed theta to delta range 5 to 70 microvolt posteriorly, lower amplitude fast anteriorly. Some lead and muscle artifacts are noted. Cardiac lead does not reveal any significant abnormality. Photic stimulation does not produce any significant driving. Hyperventilation is not performed. No paroxysmal tendency or asymmetry noted. IMPRESSION: Moderate generalized slowing suggestive of bihemispheric metabolic type dysfunction with no evidence of seizure disorder. MD ANNI Alex/YANET / [id number]
[2022-05-27] MEDS: Ampicillin Sodium/Sulbactam Na 3 GM in 0.9 % Sodium Chloride 100 ML IV ×4 (04:07→22:20)
[2022-05-27] MEDS: Doxycycline Hyclate 100 MG in 0.9 % Sodium Chloride 250 ML 166.67 MG IV ×2 (06:21→19:46)
[2022-05-27 06:59] LABS: MANUAL DIFF FLAG NO
[2022-05-27 07:04] LABS: Basophils Percent Auto 0.1 % (0-2); Hematocrit 34.9 % (37.0-47.0); Hemoglobin 11.1 g/dl (12.0-16.0); Imm Gran Abs Auto 0.08 X10*3/uL (0.00-0.03); Imm Gran Pct Auto 0.5 % (0.0-0.4); Lymphocytes Absolute Auto 1.2 X10*3/uL (1.2-4.9); Mean Corpuscular HGB Conc 31.8 g/dl (31.0-35.0); Mean Corpuscular Hemoglobin 28.9 pg (27.0-33.0); Mean Corpuscular Volume 90.9 fL (80.0-98.0); Mean Platelet Volume 10.5 fL (9.4-12.3); Monocytes Absolute Auto 0.6 X10*3/uL (0.1-1.2); Monocytes Percent Auto 3.6 % (2-11); Neutrophils Absolute Auto 13.5 x10*3/uL (2.0-8.3); Neutrophils Percent Auto 87.8 % (45-73); Platelet Count 192 X10*3/uL (160-400); Red Blood Count 3.84 X10*6/uL (4.20-5.50); Red Cell Distribution Width 15.8 % (11.0-16.0); White Blood Count 15.4 X10*3/uL (4.8-10.8)
[2022-05-27 07:24] LABS: Anion Gap 12 (12-20); Blood Urea Nitrogen 10 mg/dL (9-16); Calcium 8.5 mg/dL (8.4-10.2); Carbon Dioxide 24 mmol/L (22-29); Chloride 108 mmol/L (96-108); Creatinine Clr Calc Pharmacy 100.9; Estimated Glomerular Filt Rate > 60; Glucose Random 125 mg/dL (60-115); Potassium 4.1 mmol/L (3.3-5.1); Sodium 140 mmol/L (135-145)
--- NOTE | 2022-05-27 08:19 | PC.NURSE ---
Pt took off Baseline O2, had increased anxiety, sob, and wheezing w/ pt. Pt brought back to bed. placed back on 2 L.
[2022-05-27] MEDS: Escitalopram Oxalate 10 MG TABLET PO (09:35)
[2022-05-27] MEDS: Pregabalin 200 MG CAPSULE PO ×3 (09:36→22:48)
[2022-05-27] MEDS: methADONE HCl 20 MG/2 ML ORAL.CONC 50 MG PO (09:36)
[2022-05-27] MEDS: Enoxaparin Sodium 40 MG/0.4 ML SYRINGE SUBCUT (09:54)
--- NOTE | 2022-05-27 12:34 | P.PNIM_ITS ---
Subjective Subjective Date of Service: 05/27/22 Interval History: seen and examined this AM took off o2 to go to bathroom and then became sob with subsequent panic attack now better and willing to keep o2 on breathing overall improved Review of Systems negative except HPI Physical Exam 2 Vital Signs: Vital Signs: Last Vital Signs Temp 98.2 F 05/26/22 08:14 Pulse 58 05/27/22 08:25 Resp 14 05/27/22 07:35 BP 138/79 05/27/22 08:25 Pulse Ox 98 05/27/22 08:25 O2 Del Method 05/27/22 07:35 O2 Flow Rate 3 05/27/22 07:35 Oxygen Flow Rate 4 05/26/22 03:30 BMI result Body Mass Index 23.8 Const: Other: General - no acute distress, appears comfortable Cardiovascular - regular rate and rhythm, S1-S2 Lungs - lung sounds improved, minimal wheezing Abdomen - soft, nontender, no rebound or guarding Extremities - no edema bilaterally Neuro - awake and alert, mild hemiplegia on the R otherwise non-focal exam Objective Data Active Medications Acetaminophen (Acetaminophen 325 Mg Tablet) 650 mg PO Q6H PRN PRN Reason: Pain, Mild (Pain Scale 1-3) Albuterol Sulfate (Albuterol Sulfate 90 Mcg 8 Gm Inhaler) 2 puff INHALE QID PRN PRN Reason: Wheezing Enoxaparin Sodium (Enoxaparin Sodium 40 Mg/0.4 Ml Syringe) 40 mg SUBCUT Q24H [facility] [place] Last Admin: 05/27/22 09:54 Dose: 40 mg Documented By: KEANU Escitalopram Oxalate (Escitalopram Oxalate 10 Mg Tablet) 10 mg PO DAILY [facility] [place] Last Admin: 05/27/22 09:35 Dose: 10 mg Documented By: KEANU Guaifenesin (Guaifenesin 200 Mg/10 Ml 10 Ml Liquid) 10 ml PO Q6H PRN PRN Reason: Cough Ampicillin Sodium/Sulbactam (Sodium 3 gm/ Sodium Chloride) 100 mls @ 200 mls/hr IV Q6H [facility] [place] Last Infusion: 05/27/22 10:08 Dose: 0 mls/hr Documented By: KEANU Doxycycline Hyclate 100 mg/ (Sodium Chloride) 250 mls @ 166.67 mls/hr IV Q12H [facility] [place] Last Infusion: 05/27/22 07:56 Dose: 0 mls/hr Documented By: KEANU Melatonin (Melatonin 3 Mg Tablet) 9 mg PO BEDTIME PRN PRN Reason: Insomnia Methadone HCl (Methadone Hcl 20 Mg/2 Ml Oral.Conc) 50 mg PO DAILY [facility] [place] Last Admin: 05/27/22 09:36 Dose: 50 mg Documented By: KEANU Methylprednisolone Sodium Succinate (Methylprednisolone Sod Succ 40 Mg/Ml Vial) 40 mg IVPUSH Q24H [facility] [place] Nicotine (Nicotine 7 Mg Patch.Td24) 7 mg TRANSDERMA DAILY [facility] [place] Last Admin: 05/27/22 09:53 Dose: Not Given Documented By: KEANU Non-Admin Reason: Patient Refused Ondansetron HCl (Ondansetron Hcl 4 Mg/2 Ml Vial) 4 mg IVPUSH Q8H PRN PRN Reason: Nausea and Vomiting Pregabalin (Pregabalin 200 Mg Capsule) 200 mg PO TID [facility] [place] Last Admin: 05/27/22 09:36 Dose: 200 mg Documented By: KEANU Sodium Chloride (0.9 % Sodium Chloride Flush 3 Ml Syringe) 3 ml IVFLUSH QSHIFT [facility] [place] Last Admin: 05/27/22 07:56 Dose: Not Given Documented By: KEANU Non-Admin Reason: iv running Labs CBC & Chem 7: 05/27/22 06:45 05/27/22 06:45 Labs: Laboratory Results - last 24 hr 05/27/22 05/27/22 06:45 06:45 MCV 90.9 MCH 28.9 MCHC 31.8 RDW 15.8 Plt Count 192 MPV 10.5 Immature Gran % (Auto) 0.5 H Neut % (Auto) 87.8 H Lymph % (Auto) 8.0 L [place] % (Auto) 3.6 Eos % (Auto) 0.0 Baso % (Auto) 0.1 Lymph # (Auto) 1.2 [place] # (Auto) 0.6 Eos # (Auto) 0.0 Baso # (Auto) 0.0 Abs Immat Gran (auto) 0.08 H Absolute Neuts (auto) 13.5 H Absolute Nucleated RBC 0.000 Nucleated RBC % (auto) 0.0 Anion Gap 12 Estim Creat Clear Calc 100.9 Estimated GFR > 60 Random Glucose 125 H Calcium 8.5 Microbiology Microbiology Results: Microbiology 10/18/22 05:57 Blood Culture - Preliminary Blood - Venous No growth after 24 hours. 05/26/22 05:57 Blood Culture - Preliminary Blood - Venous No growth after 24 hours. Assessment and Plan (1) Bilateral pneumonia: Status: Acute (2) Sepsis: Status: Acute Plan 52-year-old female with past medical history of IV drug use on methadone, history of COPD, CVA 20 years ago with sequela right-sided hemiparesis ambulating with cane or walker at baseline occasionally using wheelchair, depression, GERD, and epilepsy who is a 5 cigarette per day admitted for bilateral lower lobe pneumonia with sepsis and acute respiratory failure with hypoxemia, acute COPD exacerbation, and the syncopal episode of unclear etiology. # sepsis-secondary to supsected aspiration pneumonia (bilateral) improving continue unasyn + doxy f/u cultures # acute on chronic hypoxemic respiratory failure-secondary to bilateral lower lobe pneumonia and COPD exacerbation non-complaint with O2 at times in the hospital and reportedly at home?? continue o2, wean to 2L (her reported baseline) continue solu-medrol today, likely transition to prednisone tomorrow continue updrats # acute severe COPD exacerbation with acute hypoxemic respiratory failure -albuterol nebs p.r.n. -IV solumedrol -continue home maintenance inhalers -Supplemental O2 as above -treatment for pneumonia as above #?? Syncopal episode-etiology unclear -patient's mother reports patient passed out with unclear duration of LOC, found on the floor confused -patient and her mother reported seizure history, seems consistent with absence seizures per her mother's description, but does not follow with Neurology and is not on any antiepileptics except lyrica could be related to her hypoxia #Seizure disorder- based on history seems consistent with absence seizures -continue Lyrica.? Not on any other antiepileptics -mother reports recurrent absence seizures at home.? Question seizure related to syncopal episode as above -neuro consulted neuro input appreciated -- d/w Dr. galeas (await EEG and start keppra afterwards) # history CVA 20 years ago with sequela right-sided hemiparesis using cane or walker at baseline -reporting increased weakness with falls.? Head CT and cervical spine CT without acute abnormality -not on statin or antiplatelet, unclear why; will check lipids and start baby asa -PT/OT consult for worsening right-sided weakness # opiate dependence -history IV drug abuse.? Denies any recent use -continue methadone # nicotine dependence -smokes 5 cigarettes daily. -cessation counseling offered -patches for NRT # chronic low back pain -on methadone.? Continue lidocaine patches and Tylenol p.r.n. continue Lyrica DVT prophylaxis-Lovenox Full code requires continued hospitalization for the treatment of aspiration pneumoni as work up for syncope/seiuzre with plans for EEG today. Unstable to be discharged today as we do not have an answer for her presenting syncope/seizures/loc. Furthermore, patient was septic on presentation and blood cx are still not at 48 hours. Quality Stroke Does the patient have a stroke diagnosis?: No VTE Prior VTE?: No VTE Risk Level:: Medical - moderate - high VTE Device Contraindication: Treatment Not Indicated VTE Drug Contraindication: N/A - Med Ordered
[2022-05-27 13:33] LABS: Cholesterol 135 mg/dL; HDL Cholesterol 51 mg/dL; LDL Cholesterol Calculated 72 mg/dl; Triglycerides 61 mg/dL
[2022-05-27] MEDS: methylPREDNISolone Sod Succ 40 MG/ML VIAL IVPUSH (16:19)
[2022-05-27] MEDS: 0.9 % Sodium Chloride Flush 3 ML SYRINGE IVFLUSH ×2 (16:21→22:20)
[2022-05-27] MEDS: Melatonin 3 MG TABLET 9 MG PO (22:20)
[2022-05-28] VITALS: BP 138/85; PULSE 54; RESP 16; TEMP 36.1; O2SAT 98
[2022-05-28] MEDS: Ampicillin Sodium/Sulbactam Na 3 GM in 0.9 % Sodium Chloride 100 ML IV ×2 (03:42→08:31)
[2022-05-28 03:52] VITALS: BP 153/85; PULSE 44; RESP 16; TEMP 36.2; O2SAT 100
[2022-05-28] MEDS: Doxycycline Hyclate 100 MG in 0.9 % Sodium Chloride 250 ML 166.67 MG IV (06:14)
[2022-05-28] MEDS: Nicotine 7 MG PATCH.TD24 TRANSDERMA (06:25)
[2022-05-28 07:37] VITALS: BP 173/97; PULSE 51; RESP 18; TEMP 36.4; O2SAT 99
[2022-05-28] MEDS: Escitalopram Oxalate 10 MG TABLET PO (08:30)
[2022-05-28] MEDS: Pregabalin 200 MG CAPSULE PO (08:30)
[2022-05-28] MEDS: Aspirin 81 MG TAB.CHEW PO (08:30)
[2022-05-28] MEDS: Enoxaparin Sodium 40 MG/0.4 ML SYRINGE SUBCUT (08:31)
[2022-05-28] MEDS: 0.9 % Sodium Chloride Flush 3 ML SYRINGE IVFLUSH (08:32)
[2022-05-28] MEDS: methADONE HCl 20 MG/2 ML ORAL.CONC 50 MG PO (08:32)
--- NOTE | 2022-05-28 11:01 | PM.DS ---
DS: Providers Provider Date of Service: 05/28/22 Date of admission: 05/26/22 09:35 Date of discharge: 05/28/22 Primary care physician: [facility] Consults: 05/26/22 13:26 Consult to Neurology Routine Consulting Provider: [facility] Reason for consultation: ?seizure, syncopal episode 05/28/22 09:42 Consult to Care Team Routine Comment: Reason for consultation: depression, tearful Attending physician on discharge: Rajiv Colbert Discharging clinician: Awilda Cruz DS: Diagnosis Discharge Diagnosis (1) Bilateral pneumonia: Status: Acute (2) Sepsis: Status: Acute (3) Acute respiratory failure with hypoxemia: Status: Acute (4) COPD exacerbation: Status: Acute DS: Summary Hospital Course Hospital Course: From H&P on day of admission 52-year-old female with past medical history of IV drug use on methadone, history of COPD, 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 He mother states she had been in the living room when her mother reports she passed out with unclear duration and was found confused on the floor. The patient does not recall fainting. 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 Her mother states last definitive seizure was 2 days ago.? On? arrival to the ED there is no evidence of trauma including tongue biting.? She was recently discharged from our facility on 03/31 after being hospitalized for COVID 19 infection with acute hypoxic respiratory failure.? On arrival to ED, blood pressure borderline at 98/59, HR 122.? Oximetry was 91% and she was started on 4 units O2 via nasal cannula.? WBC 19.2 with bandemia.? Renal function and electrolyte levels normal. CXR showing small bilateral pleural effusions and bilateral lower lung streaky and patchy airspace opacities possibly compatible with aspiration and/or multifocal pneumonia.? Head CT and cervical spine CT without acute abnormality.? Patient to be admitted for bilateral lower lobe pneumonia, COPD exacerbation with acute hypoxemic respiratory failure requiring supplemental O2, and syncopal episode of unclear etiology.? Patient requesting to eat but is quite somnolent on exam. acute?on chronic hypoxemic respiratory failure-secondary to bilateral lower lobe pneumonia, possibly from aspiration as well as COPD exacerbation non-complaint with O2 at times in the hospital and reportedly at home?? she was treated with IV antibiotics and systemic steroids. She has remained afebrile and leukocytosis began treding down, she was able to be weaned down to her baseline supplemental oxygen and reports her breathing has returned to her baseline. she will be discharged home to complete course of antibiotics and steroids. She is encouraged to stop smoking. She should continue her baseline inhalers and follow up with PCP. She may benefit from outpatient pulmonary evaluation. possible seizure patient and her mother reported seizure history, seems consistent with absence seizures per her mother's description, but does not follow with Neurology and is not on any antiepileptics except lyrica. she was seen by neurology and underwent EEG, EEG showed no evidence of seizure activity. Recommended to hold off on starting antiepileptic medication. Recommend outpatient 24 hour EEG and neurology follow-up. Patient reported depression. she denies SI/HI. She was seen by care team but does not want to talk to strangers about her problems and declined referral for therapy/counseling. She was seen by physical therapy who recommended to return home without additional services. Time Spent with Patient Time attestation: Total time spent providing and/or coordinating discharge services: Discharge coordination time: Greater than 30 minutes Quality: Safe Use of Opioids Does Pt have an Active Cancer Diagnosis on the Problem List?: No Quality: Stroke Does the patient have a stroke diagnosis?: No Physical Exam Vital Signs: Vital Signs: Last Vital Signs Temp 97.6 F 05/28/22 07:37 Pulse 51 05/28/22 07:37 Resp 18 05/28/22 07:37 BP 173/97 H 05/28/22 07:37 Pulse Ox 99 05/28/22 07:37 O2 Del Method 05/28/22 07:37 O2 Flow Rate 2 05/28/22 07:37 Oxygen Flow Rate 4 05/26/22 03:30 BMI result Body Mass Index 23.8 Const: General: comfortable, no acute distress, alert and awake Nutritional Appearance: average body habitus Orientation/consciousness: patient oriented x3 Resp: Effort & Inspection: normal respiratory effort and able to speak in complete sentences Auscultation: diminished lung sounds Cardio: Rate: bradycardic Heart sounds: S1 normal heart sound present and S2 normal heart sound present GI: Inspection: No distended Palpation (GI): Soft to palpation and nontender Neuro: General: patient oriented x3 Extrem: General: Yes no pedal edema DS: Data Data Completed and Pending Completed studies during hospitalization [Text1]: Procedures Detoxification Services for Substance Abuse Treatment (03/26/22) Labs on day of discharge: Laboratory Results - last 24 hr 05/27/22 06:45 Triglycerides 61 Cholesterol 135 LDL Cholesterol, Calc 72 HDL Cholesterol 51 Preliminary micro results at discharge 05/26/22 05:57 Blood Culture - Preliminary Blood - Venous No growth after 48 hours. 05/26/22 05:57 Blood Culture - Preliminary Blood - Venous No growth after 48 hours. Discharge Plan Discharge Anticipated Discharge Date/Time: 05/28/22 10:38 Patient Disposition: Home, Self-Care Discharge Diagnosis: pneumonia COPD exacerbation sepsis possible syncope Referrals: Tee Manrique MD [Physician] - 1 Week Andres Rooney MD [Primary Care Provider] - 06/09/22 9:15 am (You have a follow up appointment scheduled with PCP, call office if you need to reschedule.) Discharge Medications: New amoxicillin-pot clavulanate 875-125 mg tablet 1 tab PO BID 4 Days Qty: 8 0RF prednisone 20 mg tablet 40 mg PO DAILY 5 Days Qty: 10 0RF Continued fluticasone propionate 50 mcg/actuation spray,suspension 2 spray intranasal QAM pregabalin 200 mg capsule 1 cap PO TID lidocaine [Lidoderm] 5 % adhesive patch,medicated 1 patch topical Q24H PRN (Reason: Pain) melatonin 10 mg tablet 1 tab PO BEDTIME PRN (Reason: Insomnia) fluticasone propion-salmeterol [Advair Diskus] 500-50 mcg/dose blister with device 1 puff INHALATION BID nicotine 21 mg/24 hr patch 24 hour 1 patch topical DAILY albuterol sulfate [ProAir HFA] 90 mcg/actuation HFA aerosol inhaler 2 puff INHALATION QID PRN (Reason: Wheezing) escitalopram oxalate 10 mg tablet 1 tab PO DAILY methadone 10 mg/mL Concentrate 50 mg PO DAILY Discharge Orders: Discharge Order (Routine); Ordered 05/28/22 Ordered By: Awilda Cruz Activity on Discharge: As tolerated Stand Alone Forms: Patient Portal Discharge page Care Plan Goals: Resolution of pneumonia Health Concerns: Sepsis related to pneumonia COPD exacerbation possible syncope vs seizure tobacco dependence Plan of Treatment: Complete course of antibiotics and steroids as prescribed Recommend outpatient 24 hour EEG, call to schedule follow-up appointment with Neurology Continue to use supplemental oxygen - previously prescribed as 01/03 use Smoking cessation recommended Call to schedule follow up with PCP May benefit from outpatient pulmonary evaluation Do not drive; do not swim or bath alone until follow up with PCP/neuro/outpatient 24 hour EEG is complete Assessment: See discharge summary Discharge Date/Time: 05/28/22 13:13
[2022-05-28 11:26] VITALS: BP 120/83; PULSE 55; RESP 16; TEMP 36.3; O2SAT 97
--- NOTE | 2022-05-28 11:44 | MHC.CM.PN ---
Addendum entered by Elena Simpson 05/28/22 12:26: PT WAS PROVIDED WITH THE NUMBER FOR [employer] AND A VOUCHER FOR THE [facility] [place], [place] SHUTTLE SHUTTLE TRANSPORT ARRANGED FOR 1330 HOURS Original Note: EMR REVIEWED, CM MET W/PT WHO REPORTS SHE IS HOMELESS HOWEVER STAYING W/HER MOTHER, PT ASKING FOR HELP GETTING AN APARTMENT HOWEVER IS AWARE THAT CM CAN NOT HELP HER WITH THAT AND HER OPTIONS ARE RETURN TO MOM'S HOUSE, PRISON AND CM WILL GIVE PT THE NUMBER FOR [employer]. PT REPORTS SHE IS NOT VACCINATED FOR COVID, PCP IS AT [facility] AND PT EDUCATED ON AND DECLINES TO COMPLETE A HCP AT THIS TIME. D/C PLAN: ANTIC D/C TODAY BACK TO MOTHERS HOUSE, PT WILL NEED SHUTTLE.
== END 2022-05-28 13:13 | disposition home or self-care (01) | DRG 720 ==
LOC: HO.ED 07:15 → HO.EDOVER 09:57 → HO.S3 05-27 18:56
PROVIDERS: Physician Assistant; Admitting Provider Family Medicine; Emergency Provider Internal Medicine; PCP Internal Medicine; Visit Provider Physician Assistant Medical
DX: A41.9 Sepsis, unspecified organism (principal); J96.21 Acute and chronic respiratory failure with hypoxia; J69.0 Pneumonitis due to inhalation of food and vomit; Z99.81 Dependence on supplemental oxygen; I69.351 Hemiplegia and hemiparesis following cerebral infarction affecting right dominant side; M54.50 Low back pain, unspecified; G89.29 Other chronic pain; G40.A09 Absence epileptic syndrome, not intractable, without status epilepticus; J44.1 Chronic obstructive pulmonary disease with (acute) exacerbation; R55 Syncope and collapse; F11.20 Opioid dependence, uncomplicated; F17.210 Nicotine dependence, cigarettes, uncomplicated; Z23 Encounter for immunization; Z20.822 Contact with and (suspected) exposure to COVID-19; Z91.199 Patient's noncompliance with other medical treatment and regimen due to unspecified reason; Z86.16 Personal history of COVID-19; Z79.51 Long term (current) use of inhaled steroids; Z79.899 Other long term (current) drug therapy
CPT/HCPCS: 36415; 70450; 71045; 72125; 80048; 80053; 80061; 83605; 85007; 85025; 85027; 87040; 87635; 90686; 92610; 94640; 95816; 97162; 99285; J0295; J0696; J1650; J2920

== ENCOUNTER 2022-07-20 14:25 | Inpatient (IN) | payer MEDICAID, SELFPAY ==
[2022-07-20] VITALS (8 sets, daily range): BP systolic 86–150; BP diastolic 49–85; PULSE 60–78; RESP 11–18; TEMP 36.4–36.9; O2SAT 91–98; BMI 33.5
--- NOTE | ~2022-07-20 | CT_ITS ---
EXAMINATION: CT ANGIOGRAM OF THE CHEST WITH AND WITHOUT CONTRAST (CT PULMONARY ANGIOGRAM FOR PE) CLINICAL INFORMATION: Reason for Exam SOB and elevated D-dimer COMPARISON: Chest radiograph earlier today TECHNIQUE: Prior to contrast administration, noncontrast localization images were obtained. Subsequently, multidetector volumetric imaging was performed from the thoracic inlet to below the diaphragms following the administration of 65 mL Omnipaque 350 intravenous contrast. No contrast reaction reported Sagittal, coronal, and MIP oblique sagittal reformatted images were obtained on the CT workstation, uploaded to PACS, and reviewed. This CT examination was performed using dose optimization techniques as appropriate, variously including the following: *Automated exposure control *Adjustment of mA and/or kV according to patient size (this includes techniques or standardized protocols for targeted exams where dose is matched to indication/reason for exam; i.e. extremities or head) *Use of iterative reconstruction technique Total exam dose-length product 286 mGy-cm FINDINGS: QUALITY OF STUDY/CONTRAST BOLUS: Satisfactory. PULMONARY ARTERIES: No central or segmental pulmonary emboli. THORACIC AORTA: No aneurysm or dissection. LUNG: Increased groundglass changes are present throughout the lungs which could represent interstitial edema. Bilateral lower lobe infiltrates are present PLEURA: No pleural effusion or pneumothorax. MEDIASTINUM: Normal heart size. No pericardial effusion. There are some small nodes chest above the AP window along the transverse arch. No gross hilar or mediastinal lymphadenopathy. No evidence of septal bowing or right heart strain. CHEST WALL/AXILLA: No axillary or internal mammary lymphadenopathy. OSSEOUS STRUCTURES: No acute or suspicious osseous abnormality. UPPER ABDOMEN: Unremarkable. No reflux of contrast into the hepatic veins to suggest elevated right heart pressures. CT/CT angio chest PE protocol IMPRESSION: 1. No evidence of pulmonary emboli. 2. Bilateral lower lobe infiltrates. 3. Increased groundglass changes in the lungs may represent interstitial edema. Please correlate clinically. VTE: negative.
--- NOTE | ~2022-07-20 | US_ITS ---
EXAMINATION: US VENOUS ULTRASOUND WITH DOPPLER LOWER EXTREMITY, LEFT CLINICAL INFORMATION: Pain, swelling COMPARISON: None TECHNIQUE: Ultrasound of the deep veins is performed from the hip to the calf with compression sonography and color and pulse Doppler assessment. Spectral analysis with color-flow imaging is performed. FINDINGS: There is normal venous compression and respiratory variation and augmented flow. The visualized common femoral vein, superficial femoral vein, profunda femoral vein, popliteal vein, and the trifurcation region shows no evidence of deep venous thrombosis. There is no significant popliteal fossa cyst. If the patient's symptoms persist, followup ultrasound in 5 days 7 days might be of value to exclude proximal propagation from a non-visualized calf vein. US/US venous duplex LE LT IMPRESSION: No DVT demonstrated in the left lower extremity.
--- NOTE | ~2022-07-20 | XR_ITS ---
EXAMINATION: XR CHEST CLINICAL INFORMATION: Cough COMPARISON: 05/26/2022 TECHNIQUE: Frontal view of the chest was obtained. FINDINGS: Improvement at the right base. Improvement at the left base. There is residual. Mild increased markings in the right midlung may represent small focal area of infiltrate. The cardiac silhouette is within normal limits. There is no effusion. XR/XR chest 1V IMPRESSION: Improving at the bases as described with residual on the left. There is also developing focus in the right midlung which may represent a small area of new infiltrate. Continued follow-up recommended
--- NOTE | 2022-07-20 14:46 | ECG_ITS ---
Test Reason : sob Blood Pressure : / mmHG Vent. Rate : 072 BPM Atrial Rate : 072 BPM P-R Int : 174 ms QRS Dur : 080 ms QT Int : 388 ms P-R-T Axes : 051 036 042 degrees QTc Int : 424 ms Normal sinus rhythm Normal ECG When compared with ECG of 26-MAR-2022 01:08, Premature atrial complexes are no longer Present Referred By: Linda Meza Electronically Signed By:ALBINA DIAZ
--- NOTE | 2022-07-20 14:47 | ED_ITS ---
HPI - General Adult General Chief complaint: General Medical Stated complaint: LOW BP 79/57, FROM DR OFFICE PER EMS Time Seen by Provider: 07/20/22 14:29 Source: patient and EMS Mode of arrival: EMS History of Present Illness HPI narrative: 52-year-old female with a past medical history of COPD, depression, GERD, CVA, insomnia, substance abuse, COVID-19 now on 3 L nasal cannula at baseline, BIBA from doctor's office for hypotension and ?Urosepsis. Patient reports nonproductive cough, SOB, RLE edema and pain, urinary frequency. Denies known fever, chills, chest pain, abdominal pain, nausea/vomiting, recent travel, sick contacts. Patient is poor historian Onset (ago): unknown Related Data Home Medications Medication Instructions Recorded Confirmed fluticasone propionate 50 2 spray intranasal QAM 11/26/20 05/26/22 mcg/actuation nasal spray,suspension pregabalin 200 mg capsule 1 cap PO TID 11/26/20 05/26/22 lidocaine 5 % topical patch 1 patch topical Q24H PRN Pain 03/26/22 05/26/22 (Lidoderm) melatonin 10 mg tablet 1 tab PO BEDTIME PRN Insomnia 03/26/22 05/26/22 albuterol sulfate 90 mcg/actuation 2 puff inhalation QID PRN Wheezing 05/26/22 05/26/22 aerosol inhaler (ProAir HFA) escitalopram oxalate 10 mg tablet 1 tab PO DAILY 05/26/22 05/26/22 fluticasone 500 mcg-salmeterol 50 1 puff inhalation BID 05/26/22 05/26/22 mcg/dose blistr powdr for inhalation (Advair Diskus) methadone 10 mg/mL oral concentrate 50 mg PO DAILY 05/26/22 05/26/22 nicotine 21 mg/24 hr daily 1 patch topical DAILY 05/26/22 05/26/22 transdermal patch Previous Rx's Medication Instructions Recorded amoxicillin 875 mg-potassium 1 tab PO BID 4 days #8 tabs 05/28/22 clavulanate 125 mg tablet prednisone 20 mg tablet 40 mg PO DAILY 5 days #10 tabs 05/28/22 Allergies Allergy/AdvReac Type Severity Reaction Status Date / Time No Known Allergies Allergy Verified 11/16/20 10:49 [No Known Allergies*] Review of Systems Review of Systems: Constitutional: No Fever, No Chills, No Fatigue, No Malaise ENT/Mouth: No Ear Pain, No Nasal Congestion, No Sinus Pain, No Hoarseness, No sore throat, No Rhinorrhea, No Swallowing Difficulty Eyes: No Eye Pain, No Swelling, No Redness, No Vision Changes Cardiovascular: No Chest Pain, + SOB, + Edema, No Palpitations Respiratory: + Cough, No Sputum, No Dyspnea Gastrointestinal: No Nausea, No Vomiting, No Diarrhea, No Constipation, No Abdominal pain Genitourinary: No Dysuria, + Urinary Frequency, No Hematuria, No Flank Pain, No Hesitancy Musculoskeletal: No joint pain, + Myalgias, No Joint Swelling Skin: No Skin Lesions, No rash Neuro: No Weakness, No Dizziness, No Headache Yes all other systems are reviewed and are negative Constitutional: Constitutional: Reports as per [facility] [place] Past Medical History Attestation statement: The following information was validated with the patient. Medical History Chronic idiopathic constipation Chronic knee pain Chronic low back pain COPD (chronic obstructive pulmonary disease) Depression GERD (gastroesophageal reflux disease) History of CVA (cerebrovascular accident) Insomnia Lab test positive for detection of COVID-19 virus Mixed stress and urge incontinence Opioid use disorder, severe, dependence Smoker Substance use Syncope Surgical History No pertinent past surgical history Family History Family History Sister Breast cancer Social History Social History Household Members: None Housing: Homeless Do you presently have visiting nurse or other home services: No Alcohol intake: unknown Patient Tobacco Use Status: Current everyday Tobacco user Tobacco use type: Cigarette Cigarette Packs Per Day: 1 Cigarettes Per Day: 20.0 e-Cigarette/Vaping Use: Never Used Second Hand Smoke Exposure: No Substance Use Type: Marijuana Advance Directives: No Advance Directives Information Provided: Yes service: No Current occupational status: disabled Physical Exam ED Vital Signs: Vital Signs - 24 hr 07/20/22 14:37 07/20/22 16:03 07/20/22 17:00 Temperature 97.5 F 98.4 F Pulse Rate 78 65 60 Respiratory Rate 18 13 16 Blood Pressure 106/49 L 94/58 L Pulse Oximetry 91 L 97 Oxygen Delivery Method Nasal Cannula Nasal Cannula Oxygen Flow Rate 3 07/20/22 16:59 07/20/22 17:47 Temperature Pulse Rate 64 74 Respiratory Rate 12 11 L Blood Pressure 108/67 98/64 Pulse Oximetry 98 92 Oxygen Delivery Method Nasal Cannula Nasal Cannula Oxygen Flow Rate 3 3 BMI result Body Mass Index 33.5 Const Other: Appears under the influence General: no acute distress Orientation/consciousness: patient oriented x3 Limitations: no limitations HENMT Head: Yes normal to inspection and Yes atraumatic Ears: hearing grossly normal bilaterally General nose exam: Normal external nose present Face and sinus: Yes normal facial exam Throat: Yes posterior oropharynx normal Eyes General: appearance normal, both eyes and all related structures EOM: EOMs intact bilaterally Neck Neck: Yes normal visual inspection and Yes no meningeal signs Resp Effort & Inspection: normal respiratory effort and no respiratory distress Auscultation: clear to auscultation bilaterally and rhonchi lower bilaterally Cardio Rate: regular rate Heart sounds: S1 normal heart sound present and S2 normal heart sound present GI Inspection: Yes normal to inspection Palpation (GI): Soft to palpation, nontender, no guarding and not rigid General: Yes no CVA tenderness Back/Spine/Pelvis Back: no CVA tenderness Skin Rashes: no rashes Wounds: no wounds Neuro General: patient oriented x3, tone normal, moves all extremities, no meningeal signs, no focal motor deficits and CN's II-XI intact bilaterally Motor exam (neuro): 5/5 motor strength present throughout and Pronator motor function not present Coordination: [id number] test normal Extrem Other: + LLE with 2+ pitting edema Course Course Course Narrative: -1652--no leukocytosis. H&H stable. Labs otherwise reassuring, troponin negative -urine not infected. Tox screen positive for fentanyl and THC. Ethanol negative -1718--COVID-19/influenza/RSV negative US venous duplex LE LT IMPRESSION: No DVT demonstrated in the left lower extremity. XR chest 1V IMPRESSION: Improving at the bases as described with residual on the left. There is also developing focus in the right midlung which may represent a small area of new infiltrate. Continued follow-up recommended ? > empiric IV Rocephin ordered and Solu-Medrol -D-dimer elevated to 591 >>will obtain CTA to rule out PE -1800--on re-evaluation patient is still with coarse lung sounds. ED care transferred to Dr. Hartman pending CTA and re-evaluation Medications Administered Discontinued Medications Generic Name Dose Route Start Last Admin Trade Name Gavinq PRN Reason Stop Dose Admin Albuterol Sulfate 2.5 mg/ 5 mg 07/20/22 16:48 07/20/22 17:00 Albuterol Sulfate 2.5 mg INHALE 07/20/22 16:49 5 mg ONCE ONE Administration Albuterol/Ipratropium 3 ml 07/20/22 16:47 07/20/22 17:00 Albuterol/Iprat 2.5/0.5mg 3 Ml Ampul.Neb INHALE 07/20/22 16:48 3 ml ONCE ONE Administration Sodium Chloride 1,000 mls @ 999 mls/hr 07/20/22 14:45 07/20/22 15:57 Ns IV 07/20/22 15:45 Infused .Q1H1M CALLIE Infusion Lactated Ringer's 1,000 mls @ 999 mls/hr 07/20/22 16:45 07/20/22 16:57 Lr IV 07/20/22 17:45 999 mls/hr .Q1H1M CALLIE Administration Ceftriaxone Sodium 1 gm/ 50 mls @ 100 mls/hr 07/20/22 17:20 07/20/22 17:45 Sodium Chloride IV 07/20/22 17:49 100 mls/hr ONCE ONE Administration Methylprednisolone Sodium Succinate 125 mg 07/20/22 17:22 07/20/22 17:45 Methylprednisolone Sod Succ 125 Mg/2 Ml Vial IVPUSH 07/20/22 17:23 125 mg ONCE ONE Administration Medical Decision Making Medical Decision Making MDM Narrative: 52-year-old female with a past medical history of COPD, depression, GERD, CVA, insomnia, substance abuse, COVID-19 now on 3 L nasal cannula at baseline, BIBA from doctor's office for hypotension and ?Urosepsis. Patient reports nonproductive cough, SOB, RLE edema and pain, urinary frequency. On exam blood pressure soft, initially satting 91% on nasal cannula, coarse lung sounds bibasilarly, left lower extremity pitting edema noted. Concern for viral illness vs pneumonia vs DVT/PE vs UTI vs COPD. Lower suspicion for renal stone/pyelo, appendicitis/diverticulitis or severe sepsis at this time. Concern patient is under the influence Plan: EKG, labs, UA, CXR, IVF, DuoNeb, re-evaluate Differential Diagnosis Differential Diagnoses: The differential diagnosis associated with the presentation includes Admission/Observation Consideration of admission/observation: Escalation of care including admission/observation considered Lab Data MDM Lab Attestation statement: I reviewed the patient's lab results. Result Diagrams: 07/20/22 15:38 07/20/22 15:38 Labs: Lab Results 07/20/22 07/20/22 07/20/22 Range/Units 15:38 15:38 15:38 WBC 8.9 (4.8-10.8) X10*3/uL RBC 4.56 (4.20-5.50) X10*6/uL Hgb 13.1 (12.0-16.0) g/dl Hct 41.5 (37.0-47.0) % MCV 91.0 (80.0-98.0) fL MCH 28.7 (27.0-33.0) pg MCHC 31.6 (31.0-35.0) g/dl RDW 14.7 (11.0-16.0) % Plt Count 246 D (160-400) X10*3/uL MPV 10.4 (9.4-12.3) fL Immature Gran % (Auto) 0.5 H (0.0-0.4) % Neut % (Auto) 66.2 (45-73) % Lymph % (Auto) 22.7 (20-40) % [place] % (Auto) 8.0 (2-11) % Eos % (Auto) 1.9 (0-4) % Baso % (Auto) 0.7 (0-2) % Lymph # (Auto) 2.0 (1.2-4.9) X10*3/uL [place] # (Auto) 0.7 (0.1-1.2) X10*3/uL Eos # (Auto) 0.2 (0.0-0.4) X10*3/uL Baso # (Auto) 0.1 (0.0-0.2) X10*3/uL Abs Immat Gran (auto) 0.04 H (0.00-0.03) X10*3/uL Absolute Neuts (auto) 5.9 (2.0-8.3) x10*3/uL Absolute Nucleated RBC 0.000 (0.0-0.012) X10*3/uL Nucleated RBC % (auto) 0.0 (0.0-0.2) /100WBC PT (10.0-13.1) SEC INR (0.9-1.1) D-Dimer High Sensitivty NG/ML Sodium 139 (135-145) mmol/L Potassium 4.6 (3.3-5.1) mmol/L Chloride 105 (96-108) mmol/L Carbon Dioxide 29 (22-29) mmol/L Anion Gap 10 L (12-20) BUN 11 (9-16) mg/dL Creatinine 0.62 (0.5-1.4) mg/dL Estim Creat Clear Calc 92.8 Estimated GFR > 60 Random Glucose 93 (60-115) mg/dL Lactic Acid (0.5-2.0) mmol/L Calcium 9.1 D (8.4-10.2) mg/dL Magnesium 2.0 (1.6-2.6) mg/dL Total Bilirubin 0.3 (0.0-1.0) mg/dL Direct Bilirubin < 0.2 (0.0-0.5) mg/dL AST 19 (5-31) U/L ALT 15 (0-31) U/L Alkaline Phosphatase 65 (39-117) U/L Ammonia 49 (13-55) umol/L Troponin I High Sens (<3.5-17.0) ng/L B-Natriuretic Peptide (<100) pg/mL Total Protein 6.6 (6.5-8.0) g/dL Albumin 3.7 (3.5-5.0) g/dL Lipase 4 L (8-78) U/L Urine Color Urine Appearance Urine pH (5.0-9.0) Ur Specific [place] (1.005-1.025) Urine Protein (Neg-Trace) mg/dL Urine Glucose (UA) (Negative) mg/dL Urine Ketones (Negative) mg/dL Urine Blood (Negative) Urine Nitrite (Negative) Ur Leukocyte Esterase (Negative) Urine RBC (0-2) /HPF Urine WBC (0-5) /HPF Ur Squamous Epith Cells (0-2) /HPF Urine Bacteria (None Seen) Hyaline Casts (0-2) /LPF Urine Opiates Screen (Not Detect) Urine Fentanyl Screen (Not Detect) Ur Barbiturates Screen (Not Detect) Ur Phencyclidine Scrn (Not Detect) Ur Amphetamines Screen (Not Detect) U Benzodiazepines Scrn (Not Detect) Urine Cocaine Screen (Not Detect) U Marijuana (THC) Screen (Not Detect) Ethyl Alcohol < 10 mg/dL Influenza Type A (PCR) (Negative) Influenza Type B (PCR) (Negative) RSV RNA Qual (PCR) (Negative) SARS-CoV-2 RNA (RT-PCR) (Negative) 07/20/22 07/20/22 07/20/22 Range/Units 15:38 15:38 15:38 WBC (4.8-10.8) X10*3/uL RBC (4.20-5.50) X10*6/uL Hgb (12.0-16.0) g/dl Hct (37.0-47.0) % MCV (80.0-98.0) fL MCH (27.0-33.0) pg MCHC (31.0-35.0) g/dl RDW (11.0-16.0) % Plt Count (160-400) X10*3/uL MPV (9.4-12.3) fL Immature Gran % (Auto) (0.0-0.4) % Neut % (Auto) (45-73) % Lymph % (Auto) (20-40) % [place] % (Auto) (2-11) % Eos % (Auto) (0-4) % Baso % (Auto) (0-2) % Lymph # (Auto) (1.2-4.9) X10*3/uL [place] # (Auto) (0.1-1.2) X10*3/uL Eos # (Auto) (0.0-0.4) X10*3/uL Baso # (Auto) (0.0-0.2) X10*3/uL Abs Immat Gran (auto) (0.00-0.03) X10*3/uL Absolute Neuts (auto) (2.0-8.3) x10*3/uL Absolute Nucleated RBC (0.0-0.012) X10*3/uL Nucleated RBC % (auto) (0.0-0.2) /100WBC PT 9.8 L (10.0-13.1) SEC INR 0.9 (0.9-1.1) D-Dimer High Sensitivty 591 NG/ML Sodium (135-145) mmol/L Potassium (3.3-5.1) mmol/L Chloride (96-108) mmol/L Carbon Dioxide (22-29) mmol/L Anion Gap (12-20) BUN (9-16) mg/dL Creatinine (0.5-1.4) mg/dL Estim Creat Clear Calc Estimated GFR Random Glucose (60-115) mg/dL Lactic Acid 0.9 (0.5-2.0) mmol/L Calcium (8.4-10.2) mg/dL Magnesium (1.6-2.6) mg/dL Total Bilirubin (0.0-1.0) mg/dL Direct Bilirubin (0.0-0.5) mg/dL AST (5-31) U/L ALT (0-31) U/L Alkaline Phosphatase (39-117) U/L Ammonia (13-55) umol/L Troponin I High Sens < 3.5 (<3.5-17.0) ng/L B-Natriuretic Peptide (<100) pg/mL Total Protein (6.5-8.0) g/dL Albumin (3.5-5.0) g/dL Lipase (8-78) U/L Urine Color Urine Appearance Urine pH (5.0-9.0) Ur Specific [place] (1.005-1.025) Urine Protein (Neg-Trace) mg/dL Urine Glucose (UA) (Negative) mg/dL Urine Ketones (Negative) mg/dL Urine Blood (Negative) Urine Nitrite (Negative) Ur Leukocyte Esterase (Negative) Urine RBC (0-2) /HPF Urine WBC (0-5) /HPF Ur Squamous Epith Cells (0-2) /HPF Urine Bacteria (None Seen) Hyaline Casts (0-2) /LPF Urine Opiates Screen (Not Detect) Urine Fentanyl Screen (Not Detect) Ur Barbiturates Screen (Not Detect) Ur Phencyclidine Scrn (Not Detect) Ur Amphetamines Screen (Not Detect) U Benzodiazepines Scrn (Not Detect) Urine Cocaine Screen (Not Detect) U Marijuana (THC) Screen (Not Detect) Ethyl Alcohol mg/dL Influenza Type A (PCR) (Negative) Influenza Type B (PCR) (Negative) RSV RNA Qual (PCR) (Negative) SARS-CoV-2 RNA (RT-PCR) (Negative) 07/20/22 07/20/22 07/20/22 Range/Units 15:38 15:38 15:56 WBC (4.8-10.8) X10*3/uL RBC (4.20-5.50) X10*6/uL Hgb (12.0-16.0) g/dl Hct (37.0-47.0) % MCV (80.0-98.0) fL MCH (27.0-33.0) pg MCHC (31.0-35.0) g/dl RDW (11.0-16.0) % Plt Count (160-400) X10*3/uL MPV (9.4-12.3) fL Immature Gran % (Auto) (0.0-0.4) % Neut % (Auto) (45-73) % Lymph % (Auto) (20-40) % [place] % (Auto) (2-11) % Eos % (Auto) (0-4) % Baso % (Auto) (0-2) % Lymph # (Auto) (1.2-4.9) X10*3/uL [place] # (Auto) (0.1-1.2) X10*3/uL Eos # (Auto) (0.0-0.4) X10*3/uL Baso # (Auto) (0.0-0.2) X10*3/uL Abs Immat Gran (auto) (0.00-0.03) X10*3/uL Absolute Neuts (auto) (2.0-8.3) x10*3/uL Absolute Nucleated RBC (0.0-0.012) X10*3/uL Nucleated RBC % (auto) (0.0-0.2) /100WBC PT (10.0-13.1) SEC INR (0.9-1.1) D-Dimer High Sensitivty NG/ML Sodium (135-145) mmol/L Potassium (3.3-5.1) mmol/L Chloride (96-108) mmol/L Carbon Dioxide (22-29) mmol/L Anion Gap (12-20) BUN (9-16) mg/dL Creatinine (0.5-1.4) mg/dL Estim Creat Clear Calc Estimated GFR Random Glucose (60-115) mg/dL Lactic Acid (0.5-2.0) mmol/L Calcium (8.4-10.2) mg/dL Magnesium (1.6-2.6) mg/dL Total Bilirubin (0.0-1.0) mg/dL Direct Bilirubin (0.0-0.5) mg/dL AST (5-31) U/L ALT (0-31) U/L Alkaline Phosphatase (39-117) U/L Ammonia (13-55) umol/L Troponin I High Sens (<3.5-17.0) ng/L B-Natriuretic Peptide 41 (<100) pg/mL Total Protein (6.5-8.0) g/dL Albumin (3.5-5.0) g/dL Lipase (8-78) U/L Urine Color Yellow Urine Appearance Clear Urine pH 7.0 (5.0-9.0) Ur Specific [place] 1.020 (1.005-1.025) Urine Protein Negative (Neg-Trace) mg/dL Urine Glucose (UA) Negative (Negative) mg/dL Urine Ketones Trace (Negative) mg/dL Urine Blood Negative (Negative) Urine Nitrite Negative (Negative) Ur Leukocyte Esterase Trace H (Negative) Urine RBC 0-2 (0-2) /HPF Urine WBC 0-5 (0-5) /HPF Ur Squamous Epith Cells 3-5 (0-2) /HPF Urine Bacteria Trace (None Seen) Hyaline Casts 0-2 (0-2) /LPF Urine Opiates Screen (Not Detect) Urine Fentanyl Screen (Not Detect) Ur Barbiturates Screen (Not Detect) Ur Phencyclidine Scrn (Not Detect) Ur Amphetamines Screen (Not Detect) U Benzodiazepines Scrn (Not Detect) Urine Cocaine Screen (Not Detect) U Marijuana (THC) Screen (Not Detect) Ethyl Alcohol mg/dL Influenza Type A (PCR) NEGATIVE (Negative) Influenza Type B (PCR) NEGATIVE (Negative) RSV RNA Qual (PCR) NEGATIVE (Negative) SARS-CoV-2 RNA (RT-PCR) NEGATIVE (Negative) 07/20/22 Range/Units 15:56 WBC (4.8-10.8) X10*3/uL RBC (4.20-5.50) X10*6/uL Hgb (12.0-16.0) g/dl Hct (37.0-47.0) % MCV (80.0-98.0) fL MCH (27.0-33.0) pg MCHC (31.0-35.0) g/dl RDW (11.0-16.0) % Plt Count (160-400) X10*3/uL MPV (9.4-12.3) fL Immature Gran % (Auto) (0.0-0.4) % Neut % (Auto) (45-73) % Lymph % (Auto) (20-40) % [place] % (Auto) (2-11) % Eos % (Auto) (0-4) % Baso % (Auto) (0-2) % Lymph # (Auto) (1.2-4.9) X10*3/uL [place] # (Auto) (0.1-1.2) X10*3/uL Eos # (Auto) (0.0-0.4) X10*3/uL Baso # (Auto) (0.0-0.2) X10*3/uL Abs Immat Gran (auto) (0.00-0.03) X10*3/uL Absolute Neuts (auto) (2.0-8.3) x10*3/uL Absolute Nucleated RBC (0.0-0.012) X10*3/uL Nucleated RBC % (auto) (0.0-0.2) /100WBC PT (10.0-13.1) SEC INR (0.9-1.1) D-Dimer High Sensitivty NG/ML Sodium (135-145) mmol/L Potassium (3.3-5.1) mmol/L Chloride (96-108) mmol/L Carbon Dioxide (22-29) mmol/L Anion Gap (12-20) BUN (9-16) mg/dL Creatinine (0.5-1.4) mg/dL Estim Creat Clear Calc Estimated GFR Random Glucose (60-115) mg/dL Lactic Acid (0.5-2.0) mmol/L Calcium (8.4-10.2) mg/dL Magnesium (1.6-2.6) mg/dL Total Bilirubin (0.0-1.0) mg/dL Direct Bilirubin (0.0-0.5) mg/dL AST (5-31) U/L ALT (0-31) U/L Alkaline Phosphatase (39-117) U/L Ammonia (13-55) umol/L Troponin I High Sens (<3.5-17.0) ng/L B-Natriuretic Peptide (<100) pg/mL Total Protein (6.5-8.0) g/dL Albumin (3.5-5.0) g/dL Lipase (8-78) U/L Urine Color Urine Appearance Urine pH (5.0-9.0) Ur Specific [place] (1.005-1.025) Urine Protein (Neg-Trace) mg/dL Urine Glucose (UA) (Negative) mg/dL Urine Ketones (Negative) mg/dL Urine Blood (Negative) Urine Nitrite (Negative) Ur Leukocyte Esterase (Negative) Urine RBC (0-2) /HPF Urine WBC (0-5) /HPF Ur Squamous Epith Cells (0-2) /HPF Urine Bacteria (None Seen) Hyaline Casts (0-2) /LPF Urine Opiates Screen Not Detected (Not Detect) Urine Fentanyl Screen POSITIVE H (Not Detect) Ur Barbiturates Screen Not Detected (Not Detect) Ur Phencyclidine Scrn Not Detected (Not Detect) Ur Amphetamines Screen Not Detected (Not Detect) U Benzodiazepines Scrn Not Detected (Not Detect) Urine Cocaine Screen Not Detected (Not Detect) U Marijuana (THC) Screen POSITIVE H (Not Detect) Ethyl Alcohol mg/dL Influenza Type A (PCR) (Negative) Influenza Type B (PCR) (Negative) RSV RNA Qual (PCR) (Negative) SARS-CoV-2 RNA (RT-PCR) (Negative) Independent Interpretation I performed an independent interpretation of an: EKG (EKG normal sinus rhythm at a rate of 72. NC interval 174. QTC 424. No STEMI) Radiology Impression Discussion of test interpretation with radiology: I have reviewed the radiologist's reading. Independent Historian Clinical information obtained from an independent historian. History obtained from or confirmed by: EMS External Record Review External record reviewed: Inpatient record, Office record, Outpatient record, Prior outpatient labs and Prior outpatient radiology Critical Care Time Critical Care Time Critical Care Time: Yes Total Critical Care Time: 40 Attestation: I have personally provided critical care time exclusive of time spent on separately billable procedures. Time includes review of lab data, radiology results, discussion with consultants, and monitoring for potential decompensation. Intervention performed as documented. Discharge Plan Discharge Clinical Impression: Pneumonia, COPD exacerbation Patient Disposition: Still a Patient Prescriptions: No Action fluticasone propionate 50 mcg/actuation spray,suspension 2 spray intranasal QAM pregabalin 200 mg capsule 1 cap PO TID lidocaine [Lidoderm] 5 % adhesive patch,medicated 1 patch topical Q24H PRN (Reason: Pain) melatonin 10 mg tablet 1 tab PO BEDTIME PRN (Reason: Insomnia) fluticasone propion-salmeterol [Advair Diskus] 500-50 mcg/dose blister with device 1 puff INHALATION BID nicotine 21 mg/24 hr patch 24 hour 1 patch topical DAILY albuterol sulfate [ProAir HFA] 90 mcg/actuation HFA aerosol inhaler 2 puff INHALATION QID PRN (Reason: Wheezing) escitalopram oxalate 10 mg tablet 1 tab PO DAILY methadone 10 mg/mL Concentrate 50 mg PO DAILY amoxicillin-pot clavulanate 875-125 mg tablet 1 tab PO BID 4 Days Qty: 8 0RF prednisone 20 mg tablet 40 mg PO DAILY 5 Days Qty: 10 0RF
[2022-07-20] MEDS: 0.9 % Sodium Chloride 1,000 ML 999 ML IV (14:56)
--- NOTE | 2022-07-20 15:25 | PC.NURSE ---
Pt resting on stretcher at this time. Pt requesting to know if she will be adimitted now or going home. This RN educated pt that we will not know until we get lab work drawn. SAROJ Taylor in drawing lab work at this time
[2022-07-20 15:46] LABS: MANUAL DIFF FLAG NO
[2022-07-20 15:51] LABS: Basophils Absolute Auto 0.1 X10*3/uL (0.0-0.2); Basophils Percent Auto 0.7 % (0-2); Eosinophils Absolute Auto 0.2 X10*3/uL (0.0-0.4); Eosinophils Percent Auto 1.9 % (0-4); Hematocrit 41.5 % (37.0-47.0); Hemoglobin 13.1 g/dl (12.0-16.0); Imm Gran Abs Auto 0.04 X10*3/uL (0.00-0.03); Imm Gran Pct Auto 0.5 % (0.0-0.4); Lymphocytes Percent Auto 22.7 % (20-40); Mean Corpuscular HGB Conc 31.6 g/dl (31.0-35.0); Mean Corpuscular Hemoglobin 28.7 pg (27.0-33.0); Mean Platelet Volume 10.4 fL (9.4-12.3); Monocytes Absolute Auto 0.7 X10*3/uL (0.1-1.2); Neutrophils Absolute Auto 5.9 x10*3/uL (2.0-8.3); Neutrophils Percent Auto 66.2 % (45-73); Platelet Count 246 X10*3/uL (160-400); Red Blood Count 4.56 X10*6/uL (4.20-5.50); Red Cell Distribution Width 14.7 % (11.0-16.0); White Blood Count 8.9 X10*3/uL (4.8-10.8)
[2022-07-20 15:55] LABS: Ammonia 49 umol/L (13-55); INTERNATIONAL NORM RATIO 0.9 (0.9-1.1); Prothrombin Time 9.8 SEC (10.0-13.1)
[2022-07-20 15:59] LABS: Lactic Acid 0.9 mmol/L (0.5-2.0)
[2022-07-20 16:06] LABS: Alanine Aminotransferase 15 U/L (0-31); Albumin Level 3.7 g/dL (3.5-5.0); Alkaline Phosphatase 65 U/L (39-117); Anion Gap 10 (12-20); Aspartate Amino Transferase 19 U/L (5-31); Bilirubin Direct < 0.2 mg/dL (0.0-0.5); Bilirubin Total 0.3 mg/dL (0.0-1.0); Blood Urea Nitrogen 11 mg/dL (9-16); Calcium 9.1 mg/dL (8.4-10.2); Carbon Dioxide 29 mmol/L (22-29); Chloride 105 mmol/L (96-108); Creatinine Clr Calc Pharmacy 92.8; Estimated Glomerular Filt Rate > 60; Ethanol < 10 mg/dL; Glucose Random 93 mg/dL (60-115); Lipase 4 U/L (8-78); Potassium 4.6 mmol/L (3.3-5.1); Sodium 139 mmol/L (135-145); Total Protein 6.6 g/dL (6.5-8.0)
[2022-07-20 16:08] LABS: B Type Natriuretic Peptide 41 pg/mL (<100)
[2022-07-20 16:09] LABS: Troponin-I High Sensitivity < 3.5 ng/L (<3.5-17.0)
[2022-07-20 16:17] LABS: Appearance Urine Clear; Color Urine Yellow; Glucose Urine UA Negative (Negative); Leukocyte Esterase Urine Trace (Negative); Nitrite Urine Negative (Negative); UMIC TRIGGER UACC YES; Urine Blood Negative (Negative); Urine Ketones Trace mg/dL (Negative); Urine Protein Negative (Neg-Trace)
[2022-07-20 16:26] LABS: Influenza A PCR NEGATIVE (Negative); Influenza B PCR NEGATIVE (Negative); Resp Syncy Virus RNA Qual PCR NEGATIVE (Negative); SARS COV2 PCR INHOUSE NEGATIVE (Negative)
[2022-07-20 16:30] LABS: Amphetamine Screen Urine Not Detected (Not Detect); Barbiturates, Urine Not Detected (Not Detect); Benzodiazepines Screen Urine Not Detected (Not Detect); Cocaine Screen Urine Not Detected (Not Detect); Fentanyl, urine POSITIVE (Not Detect); Opiate Screen Urine Not Detected (Not Detect); Phencyclidine Screen Urine Not Detected (Not Detect)
[2022-07-20 16:33] LABS: Bacteria Urine Trace (None Seen); Cannabinoid Screen Urine POSITIVE (Not Detect); Hyaline Casts Urine 0-2 /LPF (0-2); RBC Urine 0-2 /HPF (0-2); WBC Urine 0-5 /HPF (0-5)
[2022-07-20] MEDS: Lactated Ringers 1,000 ML 999 ML IV (16:57)
[2022-07-20] MEDS: Albuterol/Iprat 2.5/0.5MG 3 ML AMPUL.NEB INHALE ×2 (17:00→18:19)
[2022-07-20] MEDS: Albuterol Sulfate 2.5 MG, Albuterol Sulfate (0.083%) 2.5 MG 5 MG INHALE (17:00)
[2022-07-20 17:10] LABS: D Dimer High Sensitivity 591 NG/ML
[2022-07-20] MEDS: methylPREDNISolone Sod Succ 125 MG/2 ML VIAL IVPUSH (17:45)
[2022-07-20] MEDS: cefTRIAXone sodium 1 GM in 0.9 % Sodium Chloride 50 ML IV (17:45)
--- NOTE | 2022-07-20 19:03 | PHA.MEDREC ---
Pharmacy Consult ? Medication Reconciliation Pharmacy has completed the medication reconciliation. RN completed med rec, pharmacy reviewed. Will confirm methadone dose in am
[2022-07-20] MEDS: iohexoL 350 MG/ML 100 ML INFUS..BTL IV (19:38)
--- NOTE | 2022-07-20 21:23 | PM.IMHP ---
History of Present Illness Date of Service: 07/20/22 Chief Complaint: hypotension 52-year-old female with past medical history of COPD, history of chronic knee pain, history of CVA, GERD, depression, opiate use disorder on methadone presents to the hospital after blood pressure was found to be low at primary care physician's office. Patient is on2 L of oxygen at baseline. Patient was found to be 90% on 3 L of oxygen. Patient herself reports a cough, she is not significantly forthcoming with history, I had to ask questions multiple times with not much history obtained from patient. She at this time denies any chest pain, no fever but has chills, no abdominal pain nausea or vomiting denies any urinary symptoms. And no lower extremity edema. On arrival to the ED patient hemodynamically stable blood pressure of 106/49 O2 of 90% on 2 L labs are significant for WBC count of 7.8, otherwise unremarkable, urine shows trace leukocyte Estrace some WBC, UDS positive for fentanyl and marijuana Viral serology negative chest CT angiogram shows no evidence of PE but has bilateral lower lobe infiltrate patient started on IV antibiotics will be admitted for further management Review of Systems Review of Systems: Yes all other systems are reviewed and are negative FOR[facility]LY [facility] Medical History Chronic idiopathic constipation Chronic knee pain Chronic low back pain COPD (chronic obstructive pulmonary disease) Depression GERD (gastroesophageal reflux disease) History of CVA (cerebrovascular accident) Insomnia Lab test positive for detection of COVID-19 virus Mixed stress and urge incontinence Opioid use disorder, severe, dependence Smoker Substance use Syncope Family History Sister Breast cancer Surgical History No pertinent past surgical history Social History Household Members: Other Household Members Other:: STAYS WITH HER MOM OCCASIONALLY Housing: Homeless Do you presently have visiting nurse or other home services: No Alcohol intake: unknown Patient Tobacco Use Status: Current everyday Tobacco user Tobacco use type: Cigarette Cigarette Packs Per Day: 1 Cigarettes Per Day: 3 Smoked in Last 30 Days: Yes e-Cigarette/Vaping Use: Never Used Patient Interested in Nicotine Replacement: Yes Second Hand Smoke Exposure: No Use of substances other than those prescribed or required for medical reasons: Yes Substance Use Type: Marijuana Substance Use Frequency: Daily Last Used Substance: Days (ago) Currently Displaying Signs/Symptoms of Drug Intoxication Withdrawal: No Any prior treatment program specific to substance use: No Have you been hit, kicked, punched, or otherwise hurt by someone within the past year? If so, by whom?: No Do you feel safe in your current relationship?: No Current Relationship Is there a partner from a previous relationship who is making you feel unsafe now?: No Are you made to feel afraid or neglected: No Advance Directives: No Advance Directives Information Provided: Yes Do you have thoughts of harming others: None Do you have a plan to hurt others: No Plan Recently lost weight without trying: No Eating poorly because of decreased appetite: No Nutrition Risks: No Nutritional Risk Patient : No : No Poor oral hygiene: No service: No Current occupational status: disabled [email or web address] Allergies Allergy/AdvReac Type Severity Reaction Status Date / Time No Known Allergies Allergy Verified 11/16/20 10:49 [No Known Allergies*] Home Medications Medication Instructions Recorded Confirmed Last Taken Type fluticasone propionate 50 2 spray intranasal QAM 11/26/20 07/20/22 07/19/22 History mcg/actuation nasal spray,suspension pregabalin 200 mg capsule 1 cap PO TID 11/26/20 07/20/22 07/19/22 History lidocaine 5 % topical patch 1 patch topical Q24H PRN Pain 03/26/22 07/20/22 07/19/22 History (Lidoderm) melatonin 10 mg tablet 1 tab PO BEDTIME PRN Insomnia 03/26/22 07/20/22 07/19/22 History albuterol sulfate 90 mcg/actuation 2 puff inhalation QID PRN Wheezing 05/26/22 07/20/22 07/18/22 History aerosol inhaler (ProAir HFA) escitalopram oxalate 10 mg tablet 1 tab PO DAILY 05/26/22 07/20/22 07/19/22 History fluticasone 500 mcg-salmeterol 50 1 puff inhalation BID 05/26/22 07/20/22 07/19/22 History mcg/dose blistr powdr for inhalation (Advair Diskus) methadone 10 mg/mL oral concentrate 60 mg PO DAILY 05/26/22 05/26/22 07/20/22 History nicotine 21 mg/24 hr daily 1 patch topical DAILY 05/26/22 07/20/22 07/19/22 History transdermal patch Physical Exam Vital Signs and Narrative: Vital Signs: Last Vital Signs Temp 98.4 F 07/20/22 16:03 Pulse 74 07/20/22 17:47 Resp 11 L 07/20/22 17:47 BP 98/64 07/20/22 17:47 Pulse Ox 92 07/20/22 17:47 O2 Del Method 07/20/22 17:47 O2 Flow Rate 3 07/20/22 17:47 Oxygen Flow Rate 2 07/20/22 14:37 BMI result Body Mass Index 33.5 Const: General: cooperative and no acute distress Orientation/consciousness: patient oriented x3 Eyes: General: appearance normal, both eyes and all related structures Pupils: Equal, round and reactive pupils present Resp: Other: bilateral rhonchi patient coughing a wet cough during the exam Effort & Inspection: normal respiratory effort Cardio: Rate: regular rate Rhythm: regular rhythm GI: Palpation (GI): Soft to palpation Auscultation: normal bowel sounds Skin: General skin exam: no rashes or lesions noted Neuro: General: patient oriented x3 Cranial nerves: Yes Equal, round and reactive pupils present Cognition (Neuro): normal cognition Extrem: General: Yes normal to inspection and Yes no pedal edema Results Labs CBC and Chem 7: 07/21/22 05:09 07/20/22 15:38 Labs: Laboratory Results - last 24 hr 07/20/22 07/20/22 07/20/22 15:38 15:38 15:38 MCV 91.0 MCH 28.7 MCHC 31.6 RDW 14.7 Plt Count 246 D MPV 10.4 Immature Gran % (Auto) 0.5 H Neut % (Auto) 66.2 Lymph % (Auto) 22.7 [place] % (Auto) 8.0 Eos % (Auto) 1.9 Baso % (Auto) 0.7 Lymph # (Auto) 2.0 [place] # (Auto) 0.7 Eos # (Auto) 0.2 Baso # (Auto) 0.1 Abs Immat Gran (auto) 0.04 H Absolute Neuts (auto) 5.9 Absolute Nucleated RBC 0.000 Nucleated RBC % (auto) 0.0 PT INR D-Dimer High Sensitivty Anion Gap 10 L Estim Creat Clear Calc 92.8 Estimated GFR > 60 Random Glucose 93 Lactic Acid Calcium 9.1 D Magnesium 2.0 Total Bilirubin 0.3 Direct Bilirubin < 0.2 AST 19 ALT 15 Alkaline Phosphatase 65 Ammonia 49 Troponin I High Sens B-Natriuretic Peptide Total Protein 6.6 Albumin 3.7 Lipase 4 L Urine Color Urine Appearance Urine pH Ur Specific [place] Urine Protein Urine Glucose (UA) Urine Ketones Urine Blood Urine Nitrite Ur Leukocyte Esterase Urine RBC Urine WBC Ur Squamous Epith Cells Urine Bacteria Hyaline Casts Urine Opiates Screen Urine Fentanyl Screen Ur Barbiturates Screen Ur Phencyclidine Scrn Ur Amphetamines Screen U Benzodiazepines Scrn Urine Cocaine Screen U Marijuana (THC) Screen Ethyl Alcohol < 10 Influenza Type A (PCR) Influenza Type B (PCR) RSV RNA Qual (PCR) SARS-CoV-2 RNA (RT-PCR) 07/20/22 07/20/22 07/20/22 15:38 15:38 15:38 MCV MCH MCHC RDW Plt Count MPV Immature Gran % (Auto) Neut % (Auto) Lymph % (Auto) [place] % (Auto) Eos % (Auto) Baso % (Auto) Lymph # (Auto) [place] # (Auto) Eos # (Auto) Baso # (Auto) Abs Immat Gran (auto) Absolute Neuts (auto) Absolute Nucleated RBC Nucleated RBC % (auto) PT 9.8 L INR 0.9 D-Dimer High Sensitivty 591 Anion Gap Estim Creat Clear Calc Estimated GFR Random Glucose Lactic Acid 0.9 Calcium Magnesium Total Bilirubin Direct Bilirubin AST ALT Alkaline Phosphatase Ammonia Troponin I High Sens < 3.5 B-Natriuretic Peptide Total Protein Albumin Lipase Urine Color Urine Appearance Urine pH Ur Specific [place] Urine Protein Urine Glucose (UA) Urine Ketones Urine Blood Urine Nitrite Ur Leukocyte Esterase Urine RBC Urine WBC Ur Squamous Epith Cells Urine Bacteria Hyaline Casts Urine Opiates Screen Urine Fentanyl Screen Ur Barbiturates Screen Ur Phencyclidine Scrn Ur Amphetamines Screen U Benzodiazepines Scrn Urine Cocaine Screen U Marijuana (THC) Screen Ethyl Alcohol Influenza Type A (PCR) Influenza Type B (PCR) RSV RNA Qual (PCR) SARS-CoV-2 RNA (RT-PCR) 07/20/22 07/20/22 07/20/22 15:38 15:38 15:56 MCV MCH MCHC RDW Plt Count MPV Immature Gran % (Auto) Neut % (Auto) Lymph % (Auto) [place] % (Auto) Eos % (Auto) Baso % (Auto) Lymph # (Auto) [place] # (Auto) Eos # (Auto) Baso # (Auto) Abs Immat Gran (auto) Absolute Neuts (auto) Absolute Nucleated RBC Nucleated RBC % (auto) PT INR D-Dimer High Sensitivty Anion Gap Estim Creat Clear Calc Estimated GFR Random Glucose Lactic Acid Calcium Magnesium Total Bilirubin Direct Bilirubin AST ALT Alkaline Phosphatase Ammonia Troponin I High Sens B-Natriuretic Peptide 41 Total Protein Albumin Lipase Urine Color Yellow Urine Appearance Clear Urine pH 7.0 Ur Specific [place] 1.020 Urine Protein Negative Urine Glucose (UA) Negative Urine Ketones Trace Urine Blood Negative Urine Nitrite Negative Ur Leukocyte Esterase Trace H Urine RBC 0-2 Urine WBC 0-5 Ur Squamous Epith Cells 3-5 Urine Bacteria Trace Hyaline Casts 0-2 Urine Opiates Screen Urine Fentanyl Screen Ur Barbiturates Screen Ur Phencyclidine Scrn Ur Amphetamines Screen U Benzodiazepines Scrn Urine Cocaine Screen U Marijuana (THC) Screen Ethyl Alcohol Influenza Type A (PCR) NEGATIVE Influenza Type B (PCR) NEGATIVE RSV RNA Qual (PCR) NEGATIVE SARS-CoV-2 RNA (RT-PCR) NEGATIVE 07/20/22 15:56 MCV MCH MCHC RDW Plt Count MPV Immature Gran % (Auto) Neut % (Auto) Lymph % (Auto) [place] % (Auto) Eos % (Auto) Baso % (Auto) Lymph # (Auto) [place] # (Auto) Eos # (Auto) Baso # (Auto) Abs Immat Gran (auto) Absolute Neuts (auto) Absolute Nucleated RBC Nucleated RBC % (auto) PT INR D-Dimer High Sensitivty Anion Gap Estim Creat Clear Calc Estimated GFR Random Glucose Lactic Acid Calcium Magnesium Total Bilirubin Direct Bilirubin AST ALT Alkaline Phosphatase Ammonia Troponin I High Sens B-Natriuretic Peptide Total Protein Albumin Lipase Urine Color Urine Appearance Urine pH Ur Specific [place] Urine Protein Urine Glucose (UA) Urine Ketones Urine Blood Urine Nitrite Ur Leukocyte Esterase Urine RBC Urine WBC Ur Squamous Epith Cells Urine Bacteria Hyaline Casts Urine Opiates Screen Not Detected Urine Fentanyl Screen POSITIVE H Ur Barbiturates Screen Not Detected Ur Phencyclidine Scrn Not Detected Ur Amphetamines Screen Not Detected U Benzodiazepines Scrn Not Detected Urine Cocaine Screen Not Detected U Marijuana (THC) Screen POSITIVE H Ethyl Alcohol Influenza Type A (PCR) Influenza Type B (PCR) RSV RNA Qual (PCR) SARS-CoV-2 RNA (RT-PCR) Imaging Radiologist's Impressions: Impressions Venous Duplex 07/20/22 16:23 IMPRESSION: No DVT demonstrated in the left lower extremity. Chest X-Ray 07/20/22 16:30 IMPRESSION: Improving at the bases as described with residual on the left. There is also developing focus in the right midlung which may represent a small area of new infiltrate. Continued follow-up recommended Chest CTA 07/20/22 19:39 IMPRESSION: 1. No evidence of pulmonary emboli. 2. Bilateral lower lobe infiltrates. 3. Increased groundglass changes in the lungs may represent interstitial edema. Please correlate clinically. VTE: negative. Assessment and Plan (1) COPD exacerbation: Status: Acute (2) Bilateral pneumonia: Status: Acute (3) Acute and chronic respiratory failure: Status: Acute Plan 52-year-old female with past medical history of chronic hypoxic respiratory failure on 2 L of oxygen at baseline presents to the hospital with complaints of hypotension at PCPs office found to have acute pneumonia # acute on chronic hypoxic respiratory failure - on baseline 2 L of oxygen satting 90% at rest - secondary to COPD as well as pneumonia - continue to monitor O2 - titrate O2 down to home oxygen as tolerated # acute COPD exacerbation - cough, increased sputum production - will treat with steroids, DuoNeb p.r.n. as well as scheduled - monitor respiratory status # community-acquired pneumonia - viral serology negative for COVID, RSV as well as influenza - treat with IV antibiotics - follow cultures # history of opioid use disorder - continue methadone # history of depression - continue escitalopram DVT prophylaxis: Lovenox given acute pneumonia needing IV antibiotics patient required minimum 2 night inpatient hospital stay for further management and monitoring Time Spent With Patient Time: Total time managing care of this patient today ____ minutes. Quality Stroke Does the patient have a stroke diagnosis?: No VTE Prior VTE?: No VTE Risk Level:: Medical - moderate - high VTE Device Contraindication: Treatment Not Indicated VTE Drug Contraindication: N/A - Med Ordered
--- NOTE | 2022-07-20 21:58 | PC.NURSE ---
awaiting medication verification
[2022-07-20] MEDS: Pregabalin 200 MG CAPSULE PO (22:43)
[2022-07-20] MEDS: Azithromycin 500 MG in 0.9 % Sodium Chloride 250 ML 125 MG IV (22:43)
[2022-07-20] MEDS: Enoxaparin Sodium 40 MG/0.4 ML SYRINGE SUBCUT (22:43)
[2022-07-20] MEDS: Escitalopram Oxalate 10 MG TABLET PO (22:44)
--- NOTE | 2022-07-20 22:55 | PC.NURSE ---
Pt was incontinent in the bed, this RN cleaned bed/changed linens and got pt settled in for sleep. Pt tearful stating I don't want to be here for a long time . this RN provided reassurance
[2022-07-21] VITALS (7 sets, daily range): BP systolic 136–162; BP diastolic 73–94; PULSE 50–76; RESP 16–18; TEMP 36.1–36.8; O2SAT 93–100; BMI 34.4
[2022-07-21] MEDS: methylPREDNISolone Sod Succ 40 MG/ML VIAL IVPUSH ×2 (05:31→17:27)
[2022-07-21 05:58] LABS: MANUAL DIFF FLAG NO
[2022-07-21 06:12] LABS: Basophils Percent Auto 0.1 % (0-2); Hematocrit 41.1 % (37.0-47.0); Hemoglobin 13.2 g/dl (12.0-16.0); Imm Gran Abs Auto 0.05 X10*3/uL (0.00-0.03); Imm Gran Pct Auto 0.6 % (0.0-0.4); Lymphocytes Absolute Auto 1.2 X10*3/uL (1.2-4.9); Mean Corpuscular HGB Conc 32.1 g/dl (31.0-35.0); Mean Corpuscular Hemoglobin 28.4 pg (27.0-33.0); Mean Corpuscular Volume 88.6 fL (80.0-98.0); Mean Platelet Volume 10.1 fL (9.4-12.3); Monocytes Absolute Auto 0.1 X10*3/uL (0.1-1.2); Monocytes Percent Auto 1.3 % (2-11); Neutrophils Absolute Auto 6.4 x10*3/uL (2.0-8.3); Platelet Count 226 X10*3/uL (160-400); Red Blood Count 4.64 X10*6/uL (4.20-5.50); Red Cell Distribution Width 14.5 % (11.0-16.0); White Blood Count 7.8 X10*3/uL (4.8-10.8)
[2022-07-21] MEDS: Acetaminophen 325 MG TABLET 650 MG PO ×3 (06:37→21:23)
[2022-07-21 06:38] LABS: Anion Gap 14 (12-20); Blood Urea Nitrogen 12 mg/dL (9-16); Calcium 9.1 mg/dL (8.4-10.2); Carbon Dioxide 24 mmol/L (22-29); Chloride 106 mmol/L (96-108); Creatinine Clr Calc Pharmacy 94.3; Estimated Glomerular Filt Rate > 60; Glucose Random 127 mg/dL (60-115); Potassium 4.8 mmol/L (3.3-5.1); Sodium 139 mmol/L (135-145)
[2022-07-21] MEDS: Albuterol/Iprat 2.5/0.5MG 3 ML AMPUL.NEB INHALE ×4 (07:42→19:56)
[2022-07-21] MEDS: Nicotine 21 MG PATCH.TD24 TRANSDERMA (07:46)
[2022-07-21] MEDS: Escitalopram Oxalate 10 MG TABLET PO (07:47)
[2022-07-21] MEDS: 0.9 % Sodium Chloride Flush 3 ML SYRINGE IVFLUSH ×3 (07:47→21:18)
[2022-07-21] MEDS: Pregabalin 200 MG CAPSULE PO ×3 (07:47→21:17)
--- NOTE | 2022-07-21 08:36 | HE.PHANOTE ---
RE METHADONE 60MG PER [facility]
[2022-07-21] MEDS: methADONE HCl 20 MG/2 ML ORAL.CONC 60 MG PO (08:50)
--- NOTE | 2022-07-21 09:11 | MHC.CM.PN ---
CM MET WITH PT,LIVES WITH MOTHER IN AN APARTMENT. SHE STATES SHE WOULD BE HOMELESS IF IT WASN'T FOR HER MOTHER. NO SERVICES PRIOR . USES 02 AT [facility] AT 2 L. VENDOR IS [place]. NO COVID VAX. NO HCP, DECLINES AT THIS TIME. PCP DR. SCHROEDER AT [facility]. DP: HOME WITH NO SERVICES ANTICIPATED, WILL NEED BLS TRANSPORT DUE TO 02 USE.
--- NOTE | 2022-07-21 10:37 | P.PNIM_ITS ---
Subjective Subjective Date of Service: 07/21/22 Interval History: acute on chronic hypoxic respiratory failure Review of Systems still sob -talking in short sentences, short of breath with minimal exertion. Aggressive cough. Physical Exam Vital Signs: Vital Signs: Last Vital Signs Temp 97.5 F 07/21/22 07:44 Pulse 50 07/21/22 07:44 Resp 17 07/21/22 07:44 BP 162/94 H 07/21/22 07:44 Pulse Ox 100 07/21/22 07:44 O2 Del Method 07/21/22 07:44 O2 Flow Rate 3.0 07/21/22 07:44 Oxygen Flow Rate 2 07/20/22 14:37 BMI result Body Mass Index 34.4 Appearance: Alert.? Oriented X3.? not in distress.? cvs: rrr, [id number] , no murmur res: b/l wheezin abd: no rebound or guarding ,nt, bs present. ext pulses present , no cyanosis . neuro: axo3 , nonfocal. Objective Data Active Medications Acetaminophen (Acetaminophen 325 Mg Tablet) 650 mg PO Q6H PRN PRN Reason: Pain, Mild (Pain Scale 1-3) Last Admin: 07/21/22 06:37 Dose: 650 mg Documented By: ALIRIO Albuterol/Ipratropium (Albuterol/Iprat 2.5/0.5mg 3 Ml Ampul.Neb) 3 ml INHALE RQ4H PRN PRN Reason: Shortness of Breath/Wheezing Albuterol/Ipratropium (Albuterol/Iprat 2.5/0.5mg 3 Ml Ampul.Neb) 3 ml INHALE RQ4H WHILE AWAKE [facility] Last Admin: 07/21/22 07:42 Dose: 3 ml Documented By: BLASCKenny Docusate Sodium (Docusate Sodium 100 Mg Capsule) 100 mg PO DAILY PRN PRN Reason: Constipation Enoxaparin Sodium (Enoxaparin Sodium 40 Mg/0.4 Ml Syringe) 40 mg SUBCUT Q24H [facility] Last Admin: 07/20/22 22:43 Dose: 40 mg Documented By: MINESH Escitalopram Oxalate (Escitalopram Oxalate 10 Mg Tablet) 10 mg PO DAILY [facility] Last Admin: 07/21/22 07:47 Dose: 10 mg Documented By: DABA Ceftriaxone Sodium 1 gm/ (Sodium Chloride) 50 mls @ 100 mls/hr IV Q24H [facility] Azithromycin 500 mg/ Sodium (Chloride) 250 mls @ 125 mls/hr IV Q24H [facility] Last Infusion: 07/21/22 00:51 Dose: 0 mls/hr Documented By: MINESH Lidocaine (Lidocaine 4 % Patch Adh..Patch) 1 patch TRANSDERMA DAILY PRN PRN Reason: Pain, Mild (Pain Scale 1-3) Melatonin (Melatonin 3 Mg Tablet) 9 mg PO BEDTIME PRN PRN Reason: Insomnia Methadone HCl (Methadone Hcl 20 Mg/2 Ml Oral.Conc) 60 mg PO DAILY [facility] Last Admin: 07/21/22 08:50 Dose: 60 mg Documented By: LISSETH Methylprednisolone Sodium Succinate (Methylprednisolone Sod Succ 40 Mg/Ml Vial) 40 mg IVPUSH Q12H [facility] Last Admin: 07/21/22 05:31 Dose: 40 mg Documented By: ALIRIO Nicotine (Nicotine 21 Mg Patch.Td24) 21 mg TRANSDERMA DAILY [facility] Last Admin: 07/21/22 07:46 Dose: 21 mg Documented By: LISSETH Ondansetron HCl (Ondansetron Hcl 4 Mg/2 Ml Vial) 4 mg IVPUSH Q8H PRN PRN Reason: Nausea and Vomiting Pregabalin (Pregabalin 200 Mg Capsule) 200 mg PO TID [facility] Last Admin: 07/21/22 07:47 Dose: 200 mg Documented By: LISSETH Sodium Chloride (0.9 % Sodium Chloride Flush 3 Ml Syringe) 3 ml IVFLUSH QSHIFT [facility] Last Admin: 07/21/22 07:47 Dose: 3 ml Documented By: LISSETH Labs CBC & Chem 7: 07/21/22 05:09 07/21/22 05:09 Labs: Laboratory Results - last 24 hr 07/20/22 07/20/22 07/20/22 15:38 15:38 15:38 MCV 91.0 MCH 28.7 MCHC 31.6 RDW 14.7 Plt Count 246 D MPV 10.4 Immature Gran % (Auto) 0.5 H Neut % (Auto) 66.2 Lymph % (Auto) 22.7 [place] % (Auto) 8.0 Eos % (Auto) 1.9 Baso % (Auto) 0.7 Lymph # (Auto) 2.0 [place] # (Auto) 0.7 Eos # (Auto) 0.2 Baso # (Auto) 0.1 Abs Immat Gran (auto) 0.04 H Absolute Neuts (auto) 5.9 Absolute Nucleated RBC 0.000 Nucleated RBC % (auto) 0.0 PT INR D-Dimer High Sensitivty Anion Gap 10 L Estim Creat Clear Calc 92.8 Estimated GFR > 60 Random Glucose 93 Lactic Acid Calcium 9.1 D Magnesium 2.0 Total Bilirubin 0.3 Direct Bilirubin < 0.2 AST 19 ALT 15 Alkaline Phosphatase 65 Ammonia 49 Troponin I High Sens B-Natriuretic Peptide Total Protein 6.6 Albumin 3.7 Lipase 4 L Urine Color Urine Appearance Urine pH Ur Specific [place] Urine Protein Urine Glucose (UA) Urine Ketones Urine Blood Urine Nitrite Ur Leukocyte Esterase Urine RBC Urine WBC Ur Squamous Epith Cells Urine Bacteria Hyaline Casts Urine Opiates Screen Urine Fentanyl Screen Ur Barbiturates Screen Ur Phencyclidine Scrn Ur Amphetamines Screen U Benzodiazepines Scrn Urine Cocaine Screen U Marijuana (THC) Screen Ethyl Alcohol < 10 Influenza Type A (PCR) Influenza Type B (PCR) RSV RNA Qual (PCR) SARS-CoV-2 RNA (RT-PCR) 07/20/22 07/20/22 07/20/22 15:38 15:38 15:38 MCV MCH MCHC RDW Plt Count MPV Immature Gran % (Auto) Neut % (Auto) Lymph % (Auto) [place] % (Auto) Eos % (Auto) Baso % (Auto) Lymph # (Auto) [place] # (Auto) Eos # (Auto) Baso # (Auto) Abs Immat Gran (auto) Absolute Neuts (auto) Absolute Nucleated RBC Nucleated RBC % (auto) PT 9.8 L INR 0.9 D-Dimer High Sensitivty 591 Anion Gap Estim Creat Clear Calc Estimated GFR Random Glucose Lactic Acid 0.9 Calcium Magnesium Total Bilirubin Direct Bilirubin AST ALT Alkaline Phosphatase Ammonia Troponin I High Sens < 3.5 B-Natriuretic Peptide Total Protein Albumin Lipase Urine Color Urine Appearance Urine pH Ur Specific [place] Urine Protein Urine Glucose (UA) Urine Ketones Urine Blood Urine Nitrite Ur Leukocyte Esterase Urine RBC Urine WBC Ur Squamous Epith Cells Urine Bacteria Hyaline Casts Urine Opiates Screen Urine Fentanyl Screen Ur Barbiturates Screen Ur Phencyclidine Scrn Ur Amphetamines Screen U Benzodiazepines Scrn Urine Cocaine Screen U Marijuana (THC) Screen Ethyl Alcohol Influenza Type A (PCR) Influenza Type B (PCR) RSV RNA Qual (PCR) SARS-CoV-2 RNA (RT-PCR) 07/20/22 07/20/22 07/20/22 15:38 15:38 15:56 MCV MCH MCHC RDW Plt Count MPV Immature Gran % (Auto) Neut % (Auto) Lymph % (Auto) [place] % (Auto) Eos % (Auto) Baso % (Auto) Lymph # (Auto) [place] # (Auto) Eos # (Auto) Baso # (Auto) Abs Immat Gran (auto) Absolute Neuts (auto) Absolute Nucleated RBC Nucleated RBC % (auto) PT INR D-Dimer High Sensitivty Anion Gap Estim Creat Clear Calc Estimated GFR Random Glucose Lactic Acid Calcium Magnesium Total Bilirubin Direct Bilirubin AST ALT Alkaline Phosphatase Ammonia Troponin I High Sens B-Natriuretic Peptide 41 Total Protein Albumin Lipase Urine Color Yellow Urine Appearance Clear Urine pH 7.0 Ur Specific [place] 1.020 Urine Protein Negative Urine Glucose (UA) Negative Urine Ketones Trace Urine Blood Negative Urine Nitrite Negative Ur Leukocyte Esterase Trace H Urine RBC 0-2 Urine WBC 0-5 Ur Squamous Epith Cells 3-5 Urine Bacteria Trace Hyaline Casts 0-2 Urine Opiates Screen Urine Fentanyl Screen Ur Barbiturates Screen Ur Phencyclidine Scrn Ur Amphetamines Screen U Benzodiazepines Scrn Urine Cocaine Screen U Marijuana (THC) Screen Ethyl Alcohol Influenza Type A (PCR) NEGATIVE Influenza Type B (PCR) NEGATIVE RSV RNA Qual (PCR) NEGATIVE SARS-CoV-2 RNA (RT-PCR) NEGATIVE 07/20/22 07/21/22 07/21/22 15:56 05:09 05:09 MCV 88.6 MCH 28.4 MCHC 32.1 RDW 14.5 Plt Count 226 MPV 10.1 Immature Gran % (Auto) 0.6 H Neut % (Auto) 82.0 H Lymph % (Auto) 16.0 L [place] % (Auto) 1.3 L Eos % (Auto) 0.0 Baso % (Auto) 0.1 Lymph # (Auto) 1.2 [place] # (Auto) 0.1 Eos # (Auto) 0.0 Baso # (Auto) 0.0 Abs Immat Gran (auto) 0.05 H Absolute Neuts (auto) 6.4 Absolute Nucleated RBC 0.000 Nucleated RBC % (auto) 0.0 PT INR D-Dimer High Sensitivty Anion Gap 14 Estim Creat Clear Calc 94.3 Estimated GFR > 60 Random Glucose 127 H Lactic Acid Calcium 9.1 Magnesium Total Bilirubin Direct Bilirubin AST ALT Alkaline Phosphatase Ammonia Troponin I High Sens B-Natriuretic Peptide Total Protein Albumin Lipase Urine Color Urine Appearance Urine pH Ur Specific [place] Urine Protein Urine Glucose (UA) Urine Ketones Urine Blood Urine Nitrite Ur Leukocyte Esterase Urine RBC Urine WBC Ur Squamous Epith Cells Urine Bacteria Hyaline Casts Urine Opiates Screen Not Detected Urine Fentanyl Screen POSITIVE H Ur Barbiturates Screen Not Detected Ur Phencyclidine Scrn Not Detected Ur Amphetamines Screen Not Detected U Benzodiazepines Scrn Not Detected Urine Cocaine Screen Not Detected U Marijuana (THC) Screen POSITIVE H Ethyl Alcohol Influenza Type A (PCR) Influenza Type B (PCR) RSV RNA Qual (PCR) SARS-CoV-2 RNA (RT-PCR) Assessment and Plan (1) Bilateral pneumonia: Status: Acute (2) Sepsis: Status: Acute Plan 52-year-old female with past medical history of chronic? hypoxic respiratory failure on 2 L of oxygen at baseline presents to the hospital with complaints of hypotension at PCPs office found to have acute pneumonia # acute on chronic hypoxic respiratory failure -? on baseline 2 L of oxygen? satting 90% at rest -? secondary to COPD as well as pneumonia -? continue to monitor O2 -? titrate O2 down to home oxygen as tolerated #? acute COPD exacerbation -? cough, increased sputum production -? will treat with steroids, DuoNeb p.r.n. as well as scheduled -? monitor respiratory status #? community-acquired pneumonia -? viral serology negative for COVID,? RSV as well as influenza - treat with IV antibiotics -? follow cultures #? history of opioid use disorder -? continue methadone #? history of depression -? continue escitalopram ?DVT prophylaxis: Lovenox ?ongoing hospitilisation need for acute pneumonia,copd excerebation -needs iv antibiotics and steriods,respiratory moniterin Time Spent With Patient Time: Total time managing care of this patient today ____ minutes. Quality Stroke Does the patient have a stroke diagnosis?: No VTE Prior VTE?: No VTE Risk Level:: Medical - moderate - high VTE Device Contraindication: Treatment Not Indicated VTE Drug Contraindication: N/A - Med Ordered
--- NOTE | 2022-07-21 11:45 | MHC.SL.SWA ---
Speech Pathologist Impression: Risk of Aspiration Due to: History of Pneumonia Dysphasia Diet Status: Liquid Consistency and Strategies for Safe Swallow: Liquid Intake Recommendation: Thin Liquid Intake Strategies: Unrestricted Solid Food Consistency: Dietary Recommendations: Regular Additional Modifications to Solid Foods: Patient can independently feed self. All aspects of swallow WFL. Oral Medication Intake: Whole with Liquid Please contact the pharmacy regarding appropriate crushable or liquid drug formulations that are available whenever modified delivery is recommended. Compensatory Strategies and Precautions to be Taken for Safe Swallow: Sitting Upright (90 deg) Alternate Liquids/Solids Supervision While Eating and Drinking for Safe Swallow: None Needed Foods to Avoid: Swallowing Recommended Treatments: Recommendation for Speech: NA:Typical Evaluation Comment: Patient presents with all aspects of oral motor function and all aspects of swallowing WFL. Recommend Regular Diet with thin liquids, pills whole with liquid or puree, as preferred by patient. GRACIA PAK notified of recommendation by secure text, RN in person. PASTE MIXER will d/c as patient is on least restrictive diet and all aspects of swallowing WFL. Frequency/Duration: Date Range for Service Req: Timeline to reassess: Sheet Metal Contractor Clinican/Clinical Fellow: No Supervisory Statement: I have reviewed and agree with the student/clinical fellow's documentation: N/A Speech Language Pathologist: Bernadette Dumont M.A., CCC-PASTE MIXER
[2022-07-21] MEDS: cefTRIAXone sodium 1 GM in 0.9 % Sodium Chloride 50 ML IV (17:30)
[2022-07-21] MEDS: Azithromycin 500 MG in 0.9 % Sodium Chloride 250 ML 125 MG IV (21:17)
[2022-07-21] MEDS: Enoxaparin Sodium 40 MG/0.4 ML SYRINGE SUBCUT (21:17)
[2022-07-21] MEDS: Melatonin 3 MG TABLET 9 MG PO (21:24)
[2022-07-22 03:48] VITALS: BP 140/83; PULSE 55; RESP 18; TEMP 36.7; O2SAT 99
[2022-07-22] MEDS: methylPREDNISolone Sod Succ 40 MG/ML VIAL IVPUSH (05:26)
[2022-07-22] MEDS: Albuterol/Iprat 2.5/0.5MG 3 ML AMPUL.NEB INHALE ×2 (07:28→12:03)
[2022-07-22 07:30] VITALS: PULSE 51; RESP 16; O2SAT 99
[2022-07-22 07:39] VITALS: BP 163/107; PULSE 55; RESP 19; TEMP 36.8; O2SAT 98
[2022-07-22] MEDS: Nicotine 21 MG PATCH.TD24 TRANSDERMA (08:02)
[2022-07-22] MEDS: Escitalopram Oxalate 10 MG TABLET PO (08:02)
[2022-07-22] MEDS: methADONE HCl 20 MG/2 ML ORAL.CONC 60 MG PO (08:02)
[2022-07-22] MEDS: Pregabalin 200 MG CAPSULE PO (08:02)
[2022-07-22] MEDS: 0.9 % Sodium Chloride Flush 3 ML SYRINGE IVFLUSH (08:05)
--- NOTE | 2022-07-22 10:48 | P.CDIC_ITS ---
CDI Concurrent Query Documentation Clarification: PHYSICIAN'S DOCUMENTATION REQUEST Date of Query: 07/22/22 1049 Patient Name: Bina Tejeda Admit Date: 07/20/22 Dear Doctor, A review of the medical record indicates additional documentation may be needed. Please review below and update the documentation accordingly. Clinical Indicators: Documentation on progress note dated 07/21/22 included the diagnosis of sepsis. The patient's infectious clinical indicators include: Risk Factors/Clinical Indicators/Treatments 07/20/22: WBC 8.9 LA .9 Vital signs: 97.5, 78, 18, 106/49 Recognized standard criteria for this condition and other infectious definitions includes: Bacteremia Abnormal laboratory test - does not indicate a clinically ill patient Sepsis Systemic manifestations of infection, with 2 or more SIRS criteria which include: * Fever > 100.4?F or hypothermia < 96.8?F * Leukocytosis ? WBC > 12,000 or leukopenia, WBC < 4,000, or > 10% bands * Tachycardia- > 90 beats/minute * Tachypnea- RR > 20 breaths/minute or PaCO2 < 32mmHg Source: [employer]ck Manual 2013 Documentation should include the known or suspected organism, and the underlying infection, such as UTI or pneumonia Based on the above information and the recognized standard for sepsis, could you please clarify in the Progress Notes if this diagnoses is still accurate and reflective of the patient's condition to ensure quality of the medical record. * Sepsis is/was present and is a clinical diagnosis based on (please include this additional support in the medical record) * After study, Sepsis has been ruled out * Other (please specify) * Unable to determine Use of terms such as suspected, likely, concern for, or probable (associated with a specific diagnosis that is being evaluated, monitored, or treated as if it exists) are acceptable and can be coded in the inpatient setting, when documented at the time of discharge. Thank you, Annamarie Hartmann RN Extension: [phone] Please use your independent medical judgment in providing your response. THIS QUERY IS PART OF THE PERMANENT MEDICAL RECORD Provider Response: Other Other Diagnosis: not sepsis
[2022-07-22 11:20] VITALS: PULSE 81; RESP 16; O2SAT 97
--- NOTE | 2022-07-22 12:48 | PM.DS ---
DS: Providers Provider Date of Service: 07/22/22 Date of admission: 07/20/22 21:18 Primary care physician: Andres Rooney MD DS: Diagnosis Discharge Diagnosis (1) Bilateral pneumonia: Status: Acute (2) COPD exacerbation: Status: Acute DS: Summary Hospital Course Hospital Course: 52-year-old female with past medical history of COPD, history of chronic knee pain, history of CVA, GERD, depression, opiate use disorder on methadone presents to the hospital after blood pressure was found to be low at primary care physician's office.? Patient is on2 L of oxygen at baseline.? Patient was found to be 90% on? 3 L of oxygen.? Patient herself reports a cough, she is not significantly forthcoming with history, I had to ask questions multiple times? with? not much history obtained from patient.? She at this time denies any chest pain, no fever but has chills, no abdominal pain nausea or vomiting denies any urinary symptoms.? And no lower extremity edema.? On arrival to the ED patient hemodynamically stable blood pressure of 106/49? O2 of 90% on 2 L ?labs are significant for WBC count of 7.8, otherwise unremarkable, urine shows trace leukocyte Estrace some WBC, UDS positive for fentanyl and marijuana Viral serology negative ?chest CT angiogram shows no evidence of PE but has bilateral lower lobe infiltrate ?patient started on IV antibiotics will be admitted for further management. Hospital course: Patient admitted for acute on chronic hypoxemic respiratory failure -started on nebs, steroids, IV antibiotics for pneumonia seems to be improving significantly going home with p.o. steroids as well as antibiotics. Further management outpatient with PCP. No leukocytosis, blood culture @24 hour seems negative. Consider repeating chest imaging in 3-4 weeks to see resolution of pneumonia. Above management discussed the patient detail and she understand in agreement with the above plan, time spent 50 minute. Time Spent with Patient Time attestation: Total time managing care of this patient today ____ minutes. Discharge coordination time: Greater than 30 minutes Quality: Safe Use of Opioids Does Pt have an Active Cancer Diagnosis on the Problem List?: No Quality: Stroke Does the patient have a stroke diagnosis?: No Physical Exam Vital Signs: Vital Signs: Last Vital Signs Temp 98.2 F 07/22/22 07:39 Pulse 81 07/22/22 11:20 Resp 16 07/22/22 11:20 BP 163/107 H 07/22/22 07:39 Pulse Ox 98 07/22/22 07:39 O2 Del Method 07/22/22 07:39 O2 Flow Rate 3.0 07/22/22 07:39 Oxygen Flow Rate 2 07/20/22 14:37 BMI result Body Mass Index 34.4 Appearance: Alert.? Oriented X3.? not in distress.? Eyes: Pupils equal, round and reactive to light.? Sclera nonicteric.? ENT: Pharynx normal.? Moist mucous membranes. cvs: rrr, [id number] . res: clear to auscultation ,no rhonchii or wheezing abd: no rebound or guarding ,nt, bs present. ext pulses present , no cyanosis . neuro: axo3 , nonfocal. DS: Data Data Completed and Pending Completed studies during hospitalization [Text1]: Procedures Detoxification Services for Substance Abuse Treatment (03/26/22) Labs on day of discharge: Preliminary micro results at discharge 07/20/22 15:56 Blood Culture - Preliminary Blood - Venous No growth after 24 hours. 07/20/22 15:38 Blood Culture - Preliminary Blood - Venous No growth after 24 hours. Discharge Plan Discharge Anticipated Discharge Date/Time: 07/22/22 12:37 Patient Disposition: Home, Self-Care Discharge Diagnosis: Acute on ch hypoxic respiratory failure sec copd excerebation,cap. Referrals: Andres Rooney MD [Primary Care Provider] - 1 Week Discharge Medications: New azithromycin 500 mg tablet 500 mg PO DAILY 5 Days Qty: 5 0RF cefuroxime axetil 500 mg tablet 500 mg PO BID Qty: 16 0RF Continued fluticasone propionate 50 mcg/actuation spray,suspension 2 spray intranasal QAM pregabalin 200 mg capsule 1 cap PO TID lidocaine [Lidoderm] 5 % adhesive patch,medicated 1 patch topical Q24H PRN (Reason: Pain) melatonin 10 mg tablet 1 tab PO BEDTIME PRN (Reason: Insomnia) fluticasone propion-salmeterol [Advair Diskus] 500-50 mcg/dose blister with device 1 puff INHALATION BID nicotine 21 mg/24 hr patch 24 hour 1 patch topical DAILY albuterol sulfate [ProAir HFA] 90 mcg/actuation HFA aerosol inhaler 2 puff INHALATION QID PRN (Reason: Wheezing) escitalopram oxalate 10 mg tablet 1 tab PO DAILY methadone 10 mg/mL Concentrate 60 mg PO DAILY Discharge Orders: Discharge Order (Routine); Ordered 07/22/22 Ordered By: Ashlee Clifford Diet: Advance to usual diet Activity on Discharge: As tolerated Stand Alone Forms: Patient Portal Discharge page Care Plan Goals: Patient admitted for acute on chronic hypoxemic respiratory failure -started on nebs, steroids, IV antibiotics for pneumonia seems to be improving significantly going home with p.o. steroids as well as antibiotics. Further management outpatient with PCP. Consider repeating chest imaging in 3-4 weeks to see resolution of pneumonia. Health Concerns: As above. Plan of Treatment: As above. Assessment: As above.
--- NOTE | 2022-07-22 12:50 | MHC.CM.PN ---
PT MEDICALLY CLEARED FOR D/C HOME SELF CARE W/RESUMP OF HOME O2, [facility] WILL TRANSPORT AT 1:30-1:45PM. PT'S NURSE/UNIT AWARE
== END 2022-07-22 13:46 | disposition home or self-care (01) | DRG 139 ==
LOC: HO.ED 21:00 → HO.EDOVER 21:51 → HO.S3 07-21 00:18
PROVIDERS: Physician Assistant; Admitting Provider Internal Medicine; Emergency Provider Emergency Medicine; PCP Internal Medicine; Visit Provider Internal Medicine
DX: J18.9 Pneumonia, unspecified organism (principal); J96.21 Acute and chronic respiratory failure with hypoxia; I95.9 Hypotension, unspecified; Z99.81 Dependence on supplemental oxygen; K21.9 Gastro-esophageal reflux disease without esophagitis; J44.0 Chronic obstructive pulmonary disease with (acute) lower respiratory infection; J44.1 Chronic obstructive pulmonary disease with (acute) exacerbation; M54.50 Low back pain, unspecified; G89.29 Other chronic pain; I10 Essential (primary) hypertension; F17.210 Nicotine dependence, cigarettes, uncomplicated; F11.20 Opioid dependence, uncomplicated; Z20.822 Contact with and (suspected) exposure to COVID-19; Z71.6 Tobacco abuse counseling; Z59.02 Unsheltered homelessness; Z79.51 Long term (current) use of inhaled steroids; Z79.899 Other long term (current) drug therapy
CPT/HCPCS: 0241U; 36415; 71045; 71275; 80048; 80076; 80307; 81001; 82077; 82140; 83605; 83690; 83735; 83880; 84484; 85025; 85379; 85610; 87040; 92610; 93005; 93971; 94640; 99285; J0456; J0696; J1650; J2920; J2930; Q9967

== ENCOUNTER 2022-08-05 14:13 | Outpatient (REF) | payer MEDICAID, SELFPAY ==
--- NOTE | ~2022-08-05 | MM_ITS ---
EXAMINATION: MM SCREENING DIGITAL BREAST TOMOSYNTHESIS, BILATERAL CLINICAL INFORMATION: Screening. Asymptomatic. The lifetime risk of breast cancer based on the Tyrer-Cuzick Model is 11.7%. COMPARISON: Mammography: May 30, 2014 and studies dating back to September 14, 2011 TECHNIQUE: Digital breast tomosynthesis is performed in both the craniocaudal and mediolateral oblique views along with computer-aided detection (CAD). Synthesized 2D images are generated from the tomosynthesis. FINDINGS: The breasts are almost entirely fatty (ACR BI-RADS breast composition Category a). There are no significant masses, abnormal calcifications, or other abnormalities. MM/MM tomosynthesis screening BI IMPRESSION: No significant changes from prior exam. ASSESSMENT: BI-RADS 1: Negative RECOMMENDATION: Routine annual mammography screening. This patient's information was entered into a reminder system with a target due date for their next mammogram.
== END 2022-08-05 14:14 | disposition home or self-care (01) ==
LOC: HO.MAMMO 14:13
PROVIDERS: Visit Provider Internal Medicine
DX: Z12.31 Encounter for screening mammogram for malignant neoplasm of breast (principal)
CPT/HCPCS: 77063; 77067

== ENCOUNTER 2023-07-03 19:14 | Emergency (ER) | payer MEDICAID, SELFPAY ==
--- NOTE | 2023-07-03 19:23 | ECG_ITS ---
Test Reason : CHEST PAIN Blood Pressure : / mmHG Vent. Rate : 072 BPM Atrial Rate : 072 BPM P-R Int : 170 ms QRS Dur : 084 ms QT Int : 390 ms P-R-T Axes : 045 030 046 degrees QTc Int : 427 ms Normal sinus rhythm Normal ECG When compared with ECG of 20-JUL-2022 14:50, No significant change was found Referred By: Generic ED Physician Electronically Signed By:MARLENI CHAPMAN MD
[2023-07-03 19:26] VITALS: BP 130/74; PULSE 74; O2SAT 99
[2023-07-03 19:34] VITALS: BP 123/86; PULSE 69; RESP 12; TEMP 37; O2SAT 95; BMI 29.3
[2023-07-03 19:57] LABS: MANUAL DIFF FLAG NO
[2023-07-03 19:59] LABS: Basophils Percent Auto 0.3 % (0-2); Eosinophils Percent Auto 0.1 % (0-4); Hematocrit 48.4 % (37.0-47.0); Imm Gran Abs Auto 0.04 X10*3/uL (0.00-0.03); Imm Gran Pct Auto 0.4 % (0.0-0.4); Lymphocytes Absolute Auto 1.1 X10*3/uL (1.2-4.9); Lymphocytes Percent Auto 10.8 % (20-40); Mean Corpuscular HGB Conc 33.1 g/dl (31.0-35.0); Mean Corpuscular Hemoglobin 29.1 pg (27.0-33.0); Mean Platelet Volume 10.1 fL (9.4-12.3); Monocytes Absolute Auto 0.4 X10*3/uL (0.1-1.2); Monocytes Percent Auto 3.8 % (2-11); Neutrophils Absolute Auto 8.9 x10*3/uL (2.0-8.3); Neutrophils Percent Auto 84.6 % (45-73); Platelet Count 255 X10*3/uL (160-400); Red Cell Distribution Width 14.8 % (11.0-16.0); White Blood Count 10.5 X10*3/uL (4.8-10.8)
[2023-07-03 20:15] LABS: Alanine Aminotransferase 19 U/L (0-31); Albumin Level 4.2 g/dL (3.5-5.0); Alkaline Phosphatase 82 U/L (39-117); Anion Gap 15 (12-20); Aspartate Amino Transferase 22 U/L (5-31); Bilirubin Total 0.7 mg/dL (0.0-1.0); Blood Urea Nitrogen 10 mg/dL (9-16); Calcium 9.5 mg/dL (8.4-10.2); Carbon Dioxide 23 mmol/L (22-29); Chloride 104 mmol/L (96-108); Creatinine Clr Calc Pharmacy 75.7; Estimated Glomerular Filt Rate > 60; Glucose Random 104 mg/dL (60-115); Lipase < 4 U/L (8-78); Sodium 138 mmol/L (135-145); Total Protein 8.4 g/dL (6.5-8.0)
[2023-07-03 20:21] LABS: Troponin-I High Sensitivity < 2.7 ng/L (<3.5-17.0)
--- NOTE | 2023-07-03 21:38 | ED_ITS ---
HPI - General Adult General Chief complaint: Abdominal Pain Stated complaint: N/V, DIZZY, CHEST PAIN Time Seen by Provider: 07/03/23 21:30 Source: patient and family Mode of arrival: ambulatory Limitations: no limitations History of Present Illness HPI narrative: 53-year-old female with past medical history significant for COPD use supplemental oxygen 3 L at baseline., chronic pain takes Lyrica and methadone, history of CVA, GERD, depression, opiate use currently on methadone. Patient also complained of chronic chest pain that the patient initially did hold if she did not take Lyrica. Patient in the emergency department is able to tolerate p.o. intake with no nausea vomiting, no chest pain now, patient is requesting Lyrica. Related Data Home Medications Medication Instructions Recorded Confirmed fluticasone propionate 50 2 spray intranasal QAM 11/26/20 07/20/22 mcg/actuation nasal spray,suspension pregabalin 200 mg capsule 1 cap PO TID 11/26/20 07/20/22 lidocaine 5 % topical patch 1 patch topical Q24H PRN Pain 03/26/22 07/20/22 (Lidoderm) melatonin 10 mg tablet 1 tab PO BEDTIME PRN Insomnia 03/26/22 07/20/22 albuterol sulfate 90 mcg/actuation 2 puff inhalation QID PRN Wheezing 05/26/22 07/20/22 aerosol inhaler (ProAir HFA) escitalopram oxalate 10 mg tablet 1 tab PO DAILY 05/26/22 07/20/22 fluticasone 500 mcg-salmeterol 50 1 puff inhalation BID 05/26/22 07/20/22 mcg/dose blistr powdr for inhalation (Advair Diskus) methadone 10 mg/mL oral concentrate 60 mg PO DAILY 05/26/22 07/21/22 nicotine 21 mg/24 hr daily 1 patch topical DAILY 05/26/22 07/20/22 transdermal patch Previous Rx's Medication Instructions Recorded azithromycin 500 mg tablet 500 mg PO DAILY 5 days #5 tabs 07/22/22 cefuroxime axetil 500 mg tablet 500 mg PO BID #16 tabs 07/22/22 prednisone 20 mg tablet 40 mg (2 x 20 mg) PO DAILY #8 tabs 07/22/22 Allergies Allergy/AdvReac Type Severity Reaction Status Date / Time No Known Allergies Allergy Verified 04/10/21 10:49 [No Known Allergies*] Review of Systems 2 Review of Systems: All other systems are reviewed and are negative Constitutional: Reports as per HPI and Reports no additional constitutional complaints Eyes: Reports as per HPI and Reports no additional eye complaints Reports system reviewed and no additional complaints, except as documented Cardiovascular: Reports as per HPI and Reports no additional cardiovascular complaints Respiratory: Reports as per HPI and Reports no additional respiratory complaints Gastrointestinal: Reports as per HPI and Reports no additional gastrointestinal complaints Genitourinary: Reports no additional female genitourinary complaints Musculoskeletal: Reports no additional musculoskeletal complaints Skin/Breast: Reports system reviewed and no additional complaints, except as docu Psychiatric: Reports no additional psychiatric complaints Endocrine: Reports no additional endocrine complaints Hematologic/Lymphatic: Reports no additional hematologic/lymphatic complaints Allergic/Immunologic: Reports no additional allergic/immunologic complaints Reports system reviewed and no additional complaints, except as documented and Reports Abnormal speech present [facility] Past Medical History Medical History Syncope Opioid use disorder, severe, dependence Substance use Lab test positive for detection of COVID-19 virus Mixed stress and urge incontinence Chronic idiopathic constipation GERD (gastroesophageal reflux disease) Chronic knee pain Chronic low back pain Insomnia Depression History of CVA (cerebrovascular accident) Smoker COPD (chronic obstructive pulmonary disease) Surgical History No pertinent past surgical history Family History Family History Sister Breast cancer Social History Household Members: Other Household Members Other:: STAYS WITH HER MOM OCCASIONALLY Housing: Homeless Do you presently have visiting nurse or other home services: No Alcohol intake: unknown Patient Tobacco Use Status: Current everyday Tobacco user Tobacco use type: Cigarette Cigarette Packs Per Day: 1 Cigarettes Per Day: 3 Smoked in Last 30 Days: Yes e-Cigarette/Vaping Use: Never Used Second Hand Smoke Exposure: No Use of substances other than those prescribed or required for medical reasons: No Substance Use Type: Marijuana Advance Directives: No Advance Directives Information Provided: No Patient : No service: No Current occupational status: disabled Physical Exam ED Vital Signs: Vital Signs - 24 hr 07/03/23 19:34 Temperature 98.6 F Pulse Rate 69 Respiratory Rate 12 Blood Pressure 123/86 Pulse Oximetry 95 Oxygen Delivery Method Nasal Cannula BMI result Body Mass Index 29.3 Vital signs have been reviewed and appear to be correct. Blood pressure elevated. Heart rate normal. Respiratory rate normal. Temperature normal. Oxygen saturation normal. Appearance: Alert. Oriented X3. No acute distress. Head: Normal external exam. Normocephalic. Atraumatic. No Garcia signs noted. No raccoon eyes noted Eyes: PERRLA. EOMI. Conjunctiva and sclera normal. Eyelids normal. ENT: TM's Normal. Pharynx normal. Uvula midline. Moist mucous membranes. No trismus noted. No drooling noted. No muffled voice noted. Neck: Normal inspection. Neck supple. FROM. No adenopathy. Thyroid Normal. No meningeal signs. No neck mass noted. CVS: Normal heart rate and rhythm. Heart sound normal. No murmurs noted. Pulses normal throughout. Respiratory: No respiratory distress. Painless inspiration. Breath sounds normal. No wheezes/rales/rhonchi noted. Chest nontender. No accessory muscle usage noted or decreased air movement noted. Abdomen: Soft and nontender. Bowel sounds normal in all 4 quadrants. No distention noted. No organomegaly noted. No visible injury noted. Back: No CVA tenderness. Full range of motion noted. Skin: Skin warm and dry. Normal skin color. Normal skin turgor. No rashes/lesions/lacerations noted. Extremities: No lower extremity edema. Extremities exhibit normal range of motion. Extremities nontender. Neuro: Oriented X 3. Cranial nerve exam: II-XII are grossly intact No motor deficit. No sensory deficit. Reflexes normal. Course Reevaluation(s) Reevaluation #1: Unremarkable labs and physical exam. Patient declined urine sample for urine analysis. Feels better after Lyrica was administrated in the emergency department. Patient supposed to get refill in 2 days from her PCP. Time: 22:43 Medical Decision Making Differential Diagnosis Differential Diagnoses: The differential diagnosis associated with the presentation includes (ACS, electrolyte abnormality, severe anemia, chronic pain issue) Admission/Observation Consideration of admission/observation: Escalation of care including admission/observation considered Lab Data MDM Lab Attestation statement: I reviewed the patient's lab results. 07/03/23 19:47 07/03/23 19:47 Labs: Lab Results 07/03/23 Range/Units 19:47 WBC 10.5 (4.8-10.8) X10*3/uL RBC 5.50 (4.20-5.50) X10*6/uL Hgb 16.0 D (12.0-16.0) g/dl Hct 48.4 H (37.0-47.0) % MCV 88.0 (80.0-98.0) fL MCH 29.1 (27.0-33.0) pg MCHC 33.1 (31.0-35.0) g/dl RDW 14.8 (11.0-16.0) % Plt Count 255 (160-400) X10*3/uL MPV 10.1 (9.4-12.3) fL Immature Gran % (Auto) 0.4 (0.0-0.4) % Neut % (Auto) 84.6 H (45-73) % Lymph % (Auto) 10.8 L (20-40) % Cheyenne % (Auto) 3.8 (2-11) % Eos % (Auto) 0.1 (0-4) % Baso % (Auto) 0.3 (0-2) % Lymph # (Auto) 1.1 L (1.2-4.9) X10*3/uL [place] # (Auto) 0.4 (0.1-1.2) X10*3/uL Eos # (Auto) 0.0 (0.0-0.4) X10*3/uL Baso # (Auto) 0.0 (0.0-0.2) X10*3/uL Abs Immat Gran (auto) 0.04 H (0.00-0.03) X10*3/uL Absolute Neuts (auto) 8.9 H (2.0-8.3) x10*3/uL Absolute Nucleated RBC 0.000 (0.0-0.012) X10*3/uL Nucleated RBC % (auto) 0.0 (0.0-0.2) /100WBC Sodium 138 (135-145) mmol/L Potassium 4.0 (3.3-5.1) mmol/L Chloride 104 (96-108) mmol/L Carbon Dioxide 23 (22-29) mmol/L Anion Gap 15 (12-20) BUN 10 (9-16) mg/dL Creatinine 0.67 (0.5-1.4) mg/dL Estim Creat Clear Calc 75.7 Estimated GFR > 60 Random Glucose 104 (60-115) mg/dL Calcium 9.5 (8.4-10.2) mg/dL Total Bilirubin 0.7 (0.0-1.0) mg/dL AST 22 (5-31) U/L ALT 19 (0-31) U/L Alkaline Phosphatase 82 (39-117) U/L Troponin I High Sens < 2.7 (<3.5-17.0) ng/L Total Protein 8.4 H (6.5-8.0) g/dL Albumin 4.2 (3.5-5.0) g/dL Lipase < 4 L (8-78) U/L Independent Interpretation I performed an independent interpretation of an: EKG (Normal sinus rhythm at 72 beats per minute, normal axis deviation, normal intervals, no change from previous EKG.) Chronic Conditions Patient?s care impacted by: Other (Chronic pain) Discharge Plan Discharge Clinical Impression: Chronic pain Qualifiers: Chronic pain type: other chronic pain Qualified Code(s): G89.29 - Other chronic pain Patient Disposition: Home, Self-Care Instructions: Chronic Abdominal Pain (ED) Prescriptions: No Action fluticasone propionate 50 mcg/actuation spray,suspension 2 spray intranasal QAM pregabalin 200 mg capsule 1 cap PO TID lidocaine [Lidoderm] 5 % adhesive patch,medicated 1 patch topical Q24H PRN (Reason: Pain) melatonin 10 mg tablet 1 tab PO BEDTIME PRN (Reason: Insomnia) fluticasone propion-salmeterol [Advair Diskus] 500-50 mcg/dose blister with device 1 puff INHALATION BID nicotine 21 mg/24 hr patch 24 hour 1 patch topical DAILY albuterol sulfate [ProAir HFA] 90 mcg/actuation HFA aerosol inhaler 2 puff INHALATION QID PRN (Reason: Wheezing) escitalopram oxalate 10 mg tablet 1 tab PO DAILY methadone 10 mg/mL Concentrate 60 mg PO DAILY cefuroxime axetil 500 mg tablet 500 mg PO BID Qty: 16 0RF azithromycin 500 mg tablet 500 mg PO DAILY 5 Days Qty: 5 0RF prednisone 20 mg tablet 40 mg PO DAILY Qty: 8 0RF
[2023-07-03] MEDS: Pregabalin 200 MG CAPSULE PO (21:42)
[2023-07-03 21:45] VITALS: BP 128/92; PULSE 71; RESP 16; O2SAT 98
== END 2023-07-03 22:57 | disposition home or self-care (01) ==
PROVIDERS: Emergency Provider Emergency Medicine
DX: G89.29 Other chronic pain (principal); F17.210 Nicotine dependence, cigarettes, uncomplicated; F11.20 Opioid dependence, uncomplicated; J44.9 Chronic obstructive pulmonary disease, unspecified; Z99.81 Dependence on supplemental oxygen; Z86.73 Personal history of transient ischemic attack (TIA), and cerebral infarction without residual deficits; Z79.899 Other long term (current) drug therapy
CPT/HCPCS: 36415; 80053; 83690; 84484; 85025; 93005; 99283; 99285

== ENCOUNTER 2023-11-16 12:14 | Outpatient (REF) | payer MEDICAID, SELFPAY ==
--- NOTE | ~2023-11-16 | XR_ITS ---
EXAMINATION: XR THORACIC SPINE XR LUMBAR SPINE CLINICAL INFORMATION: Chronic back pain, thoracic and lumbar pain. COMPARISON: CT chest 07/20/2022, MR lumbar spine 11/16/2020, chest radiographs 07/07/2017. TECHNIQUE: 2 views of the thoracic spine. 4 views of the lumbar spine. FINDINGS: LUMBAR SPINE: Surgical clips in the right upper quadrant. Degenerative changes in the imaged lower thoracic spine. Facet arthritis in the mid to lower lumbar spine. Moderate multilevel lumbar spondylosis. The L5-S1 disc space is difficult to visualize, although evaluation is limited due to overlying bone and soft tissue structures. MR lumbar spine of 11/16/2020 reported abnormality concerning for osteomyelitis with interdisc abscess at L5-S1. THORACIC SPINE: Slight rightward curvature of the thoracic spine. Moderate multilevel degenerative changes in the thoracic spine with hypertrophic change. Mild loss of height of midthoracic vertebral body, approximately T6 level, was present on chest radiographs of 07/07/2017. XR/XR lumbar spine 2-3V IMPRESSION: 1. Moderate multilevel degenerative changes in the thoracic spine. 2. Moderate multilevel lumbar spondylosis. 3. The L5-S1 disc space is difficult to visualize, although evaluation is limited due to overlying bony and soft tissue structures. MR lumbar spine of 11/16/2020 reported abnormality concerning for osteomyelitis with interdisc abscess at L5-S1.
--- NOTE | ~2023-11-16 | XR_ITS ---
EXAMINATION: XR THORACIC SPINE XR LUMBAR SPINE CLINICAL INFORMATION: Chronic back pain, thoracic and lumbar pain. COMPARISON: CT chest 07/20/2022, MR lumbar spine 11/16/2020, chest radiographs 07/07/2017. TECHNIQUE: 2 views of the thoracic spine. 4 views of the lumbar spine. FINDINGS: LUMBAR SPINE: Surgical clips in the right upper quadrant. Degenerative changes in the imaged lower thoracic spine. Facet arthritis in the mid to lower lumbar spine. Moderate multilevel lumbar spondylosis. The L5-S1 disc space is difficult to visualize, although evaluation is limited due to overlying bone and soft tissue structures. MR lumbar spine of 11/16/2020 reported abnormality concerning for osteomyelitis with interdisc abscess at L5-S1. THORACIC SPINE: Slight rightward curvature of the thoracic spine. Moderate multilevel degenerative changes in the thoracic spine with hypertrophic change. Mild loss of height of midthoracic vertebral body, approximately T6 level, was present on chest radiographs of 07/07/2017. XR/XR thoracic spine 2V IMPRESSION: 1. Moderate multilevel degenerative changes in the thoracic spine. 2. Moderate multilevel lumbar spondylosis. 3. The L5-S1 disc space is difficult to visualize, although evaluation is limited due to overlying bony and soft tissue structures. MR lumbar spine of 11/16/2020 reported abnormality concerning for osteomyelitis with interdisc abscess at L5-S1.
== END 2023-11-16 12:15 | disposition home or self-care (01) ==
LOC: HO.HHCX 12:14
PROVIDERS: Visit Provider Nurse Practitioner
DX: M54.9 Dorsalgia, unspecified (principal); G89.29 Other chronic pain
CPT/HCPCS: 36415; 72070; 72100; 86704; 86706; 86803; 87340; 87389; 87522

== ENCOUNTER 2023-11-16 12:50 | Outpatient (REF) | payer MEDICAID, SELFPAY ==
[2023-11-17 08:26] LABS: HBS Num1 0.28 mIU/mL (0-7.99); HBc Num1 0.15 S/CO (0.00-0.79); HBsAGNum1 0.27 S/CO (0.00-0.99); HIV AB/AG Nonreactive (Nonreactive); HIV Num 1 0.07 S/CO (0.00-0.99); Hepatitis B Core Antibody Nonreactive (Nonreactive); Hepatitis B Surface Antigen Negative (Negative); ~HepC Num1 16.54 S/CO (0.00-0.79); ~Hepatitis B Surface Antibody NONREACTIVE (Nonreactive); ~Hepatitis C Antibody Reactive (Nonreactive)
[2023-11-20 18:13] LABS: HCV Log PCR 2.73 Log IU/mL (NOT DETECTED); HepC Viral Load 533 IU/mL (NOT DETECTED)
== END 2023-11-16 12:51 | disposition home or self-care (01) ==
LOC: HO.HHCL 12:50
PROVIDERS: Visit Provider Nurse Practitioner
DX: Z11.4 Encounter for screening for human immunodeficiency virus [HIV] (principal); Z86.19 Personal history of other infectious and parasitic diseases
CPT/HCPCS: 36415; 86704; 86706; 86803; 87340; 87389; 87522

== ENCOUNTER 2024-01-21 15:16 | Outpatient (REF) | payer MEDICAID, SELFPAY ==
[2024-01-21 16:17] LABS: MANUAL DIFF FLAG NO
[2024-01-21 16:21] LABS: Basophils Absolute Auto 0.1 X10*3/uL (0.0-0.2); Basophils Percent Auto 0.6 % (0-2); Eosinophils Absolute Auto 0.2 X10*3/uL (0.0-0.4); Eosinophils Percent Auto 1.6 % (0-4); Hematocrit 50.3 % (37.0-47.0); Hemoglobin 16.5 g/dl (12.0-16.0); Imm Gran Abs Auto 0.03 X10*3/uL (0.00-0.03); Imm Gran Pct Auto 0.3 % (0.0-0.4); Lymphocytes Absolute Auto 2.5 X10*3/uL (1.2-4.9); Lymphocytes Percent Auto 23.1 % (20-40); Mean Corpuscular HGB Conc 32.8 g/dl (31.0-35.0); Mean Corpuscular Hemoglobin 29.6 pg (27.0-33.0); Mean Corpuscular Volume 90.1 fL (80.0-98.0); Mean Platelet Volume 10.3 fL (9.4-12.3); Monocytes Absolute Auto 0.6 X10*3/uL (0.1-1.2); Monocytes Percent Auto 5.8 % (2-11); Neutrophils Absolute Auto 7.4 x10*3/uL (2.0-8.3); Neutrophils Percent Auto 68.6 % (45-73); Platelet Count 263 X10*3/uL (160-400); Red Blood Count 5.58 X10*6/uL (4.20-5.50); Red Cell Distribution Width 14.5 % (11.0-16.0); White Blood Count 10.8 X10*3/uL (4.8-10.8)
[2024-01-21 16:25] LABS: INTERNATIONAL NORM RATIO 0.9 (0.9-1.1); Prothrombin Time 11.4 SEC (11.1-13.3)
[2024-01-21 16:40] LABS: Alanine Aminotransferase 20 U/L (0-31); Albumin Level 4.2 g/dL (3.5-5.0); Alkaline Phosphatase 80 U/L (39-117); Aspartate Amino Transferase 19 U/L (5-31); Bilirubin Direct 0.2 mg/dL (0.0-0.5); Bilirubin Total 0.6 mg/dL (0.0-1.0); C Reactive Protein 0.76 mg/dL (< or = 0.50); Estimated Glomerular Filt Rate > 60; Total Protein 7.8 g/dL (6.5-8.0)
[2024-01-27 18:55] LABS: Hepatitis C Genotype 1
[2024-02-09 15:13] LABS: FIB-ALT 13 U/L (6-29); FIB-Alpha-2-Macroglobulin 203 mg/dL (106-279); FIB-Apolipoprotein A1 155 mg/dL (101-198); FIB-GGT 47 U/L (3-70); FIB-Haptoglobin 186 mg/dL (43-212); FIB-Total Bilirubin 0.3 mg/dL (0.2-1.2); Liver Fibrosis Score 0.13; Liver Fibrosis Stage F0; Nec Inflam Act Grade A0; Nec Inflam Act Score 0.03
== END 2024-01-21 15:17 | disposition home or self-care (01) ==
LOC: HO.HHCL 15:16
PROVIDERS: Visit Provider Nurse Practitioner
DX: B19.20 Unspecified viral hepatitis C without hepatic coma (principal); M46.40 Discitis, unspecified, site unspecified
CPT/HCPCS: 36415; 80076; 81596; 82565; 85025; 85610; 86140; 87902

== ENCOUNTER 2024-10-06 11:16 | Outpatient (REF) | payer MEDICAID, SELFPAY ==
--- OUTSIDE RECORDS SUMMARY | 2024-10-06 13:23 | XMS_ITS | Encounter Summary ---
Author Organization [employer] Address [address] [place] [address] Care Team Providers Care Forestry Aid Technician Name Role Phone Nidia Danielle NP Primary Care Provider [phone] Reason for Visit * Reason Comments Follow-up Encounter Details Date Type Department Care Team ([facility] st Contact Info) Description 10/06/2024 9:15 AM EST Office Visit [facility] MEDICINE [address] [place] [address] Nidia Danielle NP [address] [place] [address] Depressive disorder (Primary Dx); Anxiety; Wheezing; Other chest pain; Encounter for immunization; Encounter for smoking cessation counseling; Osteomyelitis of lumbar spine (CMS/HCC); Abnormal complete blood count; Encounter for health-related screening Social History Tobacco Use Types Packs/Day Years Used Date Smoking Tobacco: Every Day Cigarettes Passive Smoke Exposure: Current Smokeless Tobacco: Never Alcohol Use Standard Drinks/Week Comments Not Currently 0 (1 standard drink = 0.6 oz pur e alcohol) Alcohol Answer Date Recorded How often do you have a drink containing alcohol ? 1 02/03/2024 How many drinks containing a lcohol do you have on a typical day when you are drinking? 0 02/03/2024 How often do you have six or more drinks on one occasion? 0 02/03/2024 Depression Answer Date Recorded Patient Health Questionnaire-9 Score 21 10/06/2024 Patient Health Questionnaire-9 Score 21 10/06/2024 Last PHQ-9: Questionnaire Data Not on file 0 10/06/2024 Housing Stability Answer Date Recorded What is your housing situation today? I do not have housing (Staying with others, in a hotel, in a long term, living outside on the street, on a beach, in a car, or in a park 01/21/[address] you li ve. Do you have problems with any of the following? I am not sure 01/21/2024 Food Insecurity Answer Date Recorded Within the past 12 months, y ou worried that your food would run out before you got money to buy more: Sometimes True 2023 Within the past 12 months,th e food you bought just didn't last and you didn't have enough money to get more: Sometimes True 01/21/2024 Transportation Answer Date Recorded In the past 12 months, has l ack of transportation kept you from medical appts, meetings, work or from getting things needed for daily living? Yes, it has kept me from medical appointments or getting medications. 11/12/2023 Utilities Answer Date Recorded In the past 12 months, has t he electric, gas, oil or water company threatened to shut off services in your home? I am not sure 01/21/2024 Depression Answer Date Recorded Patient Health Questionnaire-2 Score 5 10/06/2024 Comments No Sex and Gender Information Value Date Recorded Sex Assigned at Female 06/08/2022 10:18 AM EDT Legal Sex Female 10:18 AM EDT Gender Identity Female 06/08/2022 10:18 AM EDT Sexual Orientation Straight 06/08/2022 10 :18 AM EDT documented as of this encounter Last Filed Vital Signs Vital Sign Reading Time Taken Comments Blood Pressure 113/77 10/06/2024 9:45 AM EST Pulse 81 10/06/2024 9:45 AM EST Temperature 36.7 ??C (98.1 ??F) 10/06/2024 9:45 AM ES T Respiratory Rate 20 10/06/2024 9:45 AM EST Oxygen Saturation 93% 10/06/2024 9:45 AM EST Inhaled Oxygen Concentration - - Weight 74.8 kg (164 lb 12.8 oz) 10/06/2024 9:45 AM EST Height 149.9 cm (4' 11 ) 10/06/2024 9:45 AM EST Body Mass Index 33.29 10/06/2024 9:45 AM EST documented in this encounter Plan of Treatment Scheduled Orders Name Type Priority Associated Diagnoses Orde r Schedule CBC auto differential Lab Routine Abnormal complete blood count Expected: 10/06/2024 (Approximate), Expires: 10/06/2025 Comprehensive Metabolic Panel Lab Routine Encounter for health-related screening Expected: 10/06/2024 (Approximate), Expires: 10/06/2025 Lipid Panel, Standard Lab Routine Encounter for health-related screening Expected: 10/06/2024 (Approximate), Expires: 10/06/2025 ECG 12 lead ECG Routine Other chest pain Ordered: 10/06/2024 documented as of this encounter Visit Diagnoses Diagnosis Depressive disorder- Primary Depressive disorder, not elsewhere classified Anxiety Anxiety state, unspecified Wheezing Other chest pain Encounter for immunization Encounter for smoking cessation counseling Osteomyelitis of lumbar spine ([facility]/HCC) Abnormal complete blood count Other abnormal blood chemistry Encounter for health-related screening documented in this encounter Additional Health Concerns Assessment Noted Time PHQ-9 Depression Total Score: 21 025 10:58 AM EST documented as of this encounter Care Teams Forestry Aid Technician Relationship Specialty Start Date End Date Nidia Danielle NP [address] [place] [id number] PCP - General Family Medicine 06/18/23 documented as of this encounter
--- OUTSIDE RECORDS SUMMARY | 2024-10-06 13:23 | XMS_ITS | Encounter Summary ---
Author Organization [employer] Address [address] [place] [address] Care Team Providers Care Ammonium Sulfate Operator Name Role Phone Nidia Danielle NP Primary Care Provider [phone] Reason for Visit * Reason Onset Date Comments Med Refill 05/01/2024 Encounter Details Date Type Department Care Team ([facility] st Contact Info) Description 05/01/2024 Telephone [facility] MEDICINE [address] [place] [address] Nidia Danielle NP [address] [place] [address] Med Refill Social History Tobacco Use Types Packs/Day Years [...] Date Recorded Patient Health Questionnaire-9 Score 21 01/21/2024 Patient Health Questionnaire-9 Score 21 01/21/2024 Last PHQ-9: Questionnaire Data Not on file 0 01/21/2024 Housing Stability Answer Date Recorded What is your housing situation today? I do not have housing (Staying with others, in a hotel, in a correction, living outside on the street, on a [...] Answer Date Recorded Patient Health Questionnaire-2 Score 6 01/21/2024 Comments No Sex and Gender Information Value Date Recorded Sex Assigned at Female 06/08/2022 10:18 AM EDT Legal Sex Female 10:18 AM EDT Gender Identity Female 06/08/2022 10:18 AM EDT Sexual Orientation Straight 06/08/2022 10 :18 AM EDT documented as of this encounter Miscellaneous Notes * Telephone Encounter - Juju Lynne LPN - 05/01/2024 9:34 AM EDT Medication pended to PCP. * Telephone Encounter - Georgia Mcqueen - 05/01/2024 9:02 AM EDT TC from pt requesting medication refill. Medications needing refill : pregabalin (Lyrica) 300 MG capsule To be sent to: [facility] [place] [address] documented in this encounter Plan of Treatment Not on file documented as of this encounter Visit Diagnoses Not on filedocumented in this encounter Additional Health Concerns Assessment Noted Time PHQ-9 Depression Total Score: 21 024 3:13 PM EDT documented as of this encounter Care Teams Ammonium Sulfate Operator Relationship Specialty Start Date End Date Nidia Danielle NP [address] [place] [address] PCP - General Family Medicine 06/18/23 documented as of this encounter
--- OUTSIDE RECORDS SUMMARY | 2024-10-06 13:23 | XMS_ITS | Encounter Summary ---
Author Organization [employer] Address [address] [place] [address] Care Team Providers Care Senior Research Fellow Name Role Phone Nidia Danielle NP Primary Care Provider [phone] Reason for Visit * Reason Onset Date Comments Med Refill 09/21/2024 PT1 Submitted 09/21/2024 Encounter Details Date Type Department Care Team ([facility] st Contact Info) Description 09/21/2024 Telephone [facility] MEDICINE [address] [place] [address] Nidia Danielle NP [address] [place] [address] Med Refill; PT1 Submitted Social History Tobacco Use Types Packs/Day Years [...] with others, in a hotel, in a snf, living outside on the street, on a [...] encounter Miscellaneous Notes * Telephone Encounter - Amber Khan - 09/22/2024 9:36 AM EST PT-1 submitted for patient. They will receive a letter of approval or denial in the mail. PT-1 Request Number [id number] is Authorized * Telephone Encounter - Beau Monsalve RN - 09/21/2024 4:26 PM EST TC placed to patient to reinforce importance of keeping upcoming appt to continue getting refills of lyrica. Patient reports that she has trouble moving around in the winter time and also has difficulty with transportation. Patient informed RN will set send message to referral team to set her up with PT1 services to clinic for transportation to future appts but advised she try to get something arranged for appt on 10/06/24 patient agrees and verbalized understanding. Patient advised again not tomiss appt or at risk of not getting refill patient verbalized understanding. Message sent to referrals team. Patient needs PT1 services to clinic. Message sent to referrals dept. documented in this encounter Plan of Treatment Not on file documented as of this encounter Visit Diagnoses Not on filedocumented in this encounter Additional Health Concerns Assessment Noted Time PHQ-9 Depression Total Score: 21 024 3:13 PM EDT documented as of this encounter Care Teams Senior Research Fellow Relationship Specialty Start Date End Date Nidia Danielle NP [address] [place] [address] PCP - General Family Medicine 06/18/23 documented as of this encounter
--- OUTSIDE RECORDS SUMMARY | 2024-10-06 13:23 | XMS_ITS | Encounter Summary ---
Author Organization [employer] Address [address] [place] [address] Care Team Providers Care Management Retail Intern Name Role Phone ShakiraNidia willis CHICHO Primary Care Provider [phone] Encounter Details Date Type Department Care Team (Latest Contact Info) Description 10/06/2024 Travel Social History Tobacco Use Types Packs/Day Years [...] with others, in a hotel, in a chcf, living outside on the street, on a [...] AM EDT documented as of this encounter Plan of Treatment Not on file documented as of this encounter Visit Diagnoses Not on filedocumented in this encounter Additional Health Concerns Assessment Noted Time PHQ-9 Depression Total Score: 21 025 10:58 AM EST documented as of this encounter Care Teams Management Retail Intern Relationship Specialty Start Date End Date Nidia Danielle NP [address] [place] [address] PCP - General Family Medicine 06/18/23 documented as of this encounter
--- OUTSIDE RECORDS SUMMARY | 2024-10-06 13:23 | XMS_ITS | Encounter Summary ---
Author Organization [employer] Address [address] [facility] [address] [place] [address] Care Team Providers Care Director Financial Services Name Role Phone Nidia Danielle NP Primary Care Provider [phone] Reason for Visit * Reason Comments Med Refill Encounter Details Date Type Department Care Team (Late st Contact Info) Description 09/18/2024 Refill [facility] MEDICINE [address] [place] [address] Nidia Danielle NP [address] [place] [address] Osteomyelitis of lumbar spine (CMS/HCC) Social History Tobacco Use Types Packs/Day Years [...] with others, in a hotel, in a longterm, living outside on the street, on a [...] Telephone Encounter - Juju Lynne LPN - 09/18/2024 2:51 PM EST MECHANICAL MAINTENANCE ENGINEER checked on 09/18/24. Last seen 01/21/24. documented in this encounter Plan of Treatment Not on file documented as of this encounter Visit Diagnoses Diagnosis Osteomyelitis of lumbar spine (CMS/HCC) documented in this encounter Additional Health Concerns Assessment Noted Time PHQ-9 Depression Total Score: 21 024 3:13 PM EDT documented as of this encounter Care Teams Director Financial Services Relationship Specialty Start Date End Date Nidia Danielle NP [address] [place] [address] PCP - General Family Medicine 06/18/23 documented as of this encounter
--- OUTSIDE RECORDS SUMMARY | 2024-10-06 13:23 | XMS_ITS | Encounter Summary ---
Author Organization [employer] Address [address] [facility] [address] 7[address] [place] [address] Care Team Providers Care Fur Glazer Name Role Phone [facility] Primary Care Provider [phone] Deyanira Schrader MD Primary Care Pro vider Nidia Danielle NP Primary Care Provider [phone] Reason for Visit * Reason Onset Date Comments triage 08/14/2022 Encounter Details Date Type Department Care Team (Late st Contact Info) Description 08/14/2022 Telephone [facility] MEDICINE [address] [place], [place] [phone] [facility] [address] [place], [place] [phone] triage Social History Tobacco Use Types Packs/Day Years Used Date Smoking Tobacco: Former Cigarettes Passive Smoke Exposure: Current Smokeless Tobacco: Never Alcohol Use Standard Drinks/Week Comments Not Currently 0 (1 standard drink = 0.6 oz pur e alcohol) Comments Unknown Sex and Gender Information Value Date Recorded Sex Assigned at Female 06/08/2022 10:18 AM EDT Legal Sex Female 10:18 AM EDT Gender Identity Female 06/08/2022 10:18 AM EDT Sexual Orientation Straight 06/08/2022 10 :18 AM EDT COVID-19 Exposure Response Date Recorded In the last 10 days, have yo u been in contact with someone who was confirmed or suspected to have Coronavirus/COVID-19? No / Unsure 07/20/2022 1:03 PM EST documented as of this encounter Miscellaneous Notes * Telephone Encounter - Jimbo Arenas - 08/14/2022 2:31 PM EST Symptoms: Leg Swelling - Not From Injury, Foot or Ankle Swelling, Back Pain - Not From Injury Outcome: Talk to a nurse or provider within 15 minutes Reason: Can't walk The caller accepted this outcome documented in this encounter Plan of Treatment Not on file documented as of this encounter Visit Diagnoses Not on filedocumented in this encounter Care Teams Fur Glazer Relationship Specialty Start Date End Date Sri White FNP [address] [place] [id number] PCP - General Family Medicine 06/29/22 05/17/23 Deyanira Schrader MD [address] [place] [id number] PCP - General Internal Medicine 05/18/23 06/17/23 Nidia Danielle NP [address] [place] [address] PCP - General Family Medicine 06/18/23 documented as of this encounter
--- OUTSIDE RECORDS SUMMARY | 2024-10-06 13:23 | XMS_ITS | Encounter Summary ---
Author Organization [employer] Address [address] [facility] [address] [place] [address] Care Team Providers Care Coat Repair Inspector Name Role Phone Nidia Danielle NP Primary Care Provider [phone] Reason for Visit * Reason Onset Date Comments chartprep 09/19/2024 Encounter Details Date Type Department Care Team ([facility] st Contact Info) Description 09/19/2024 Telephone [facility] MED[facility]INE [address] [place] [address] Omari Meyer MA chartprep Social History Tobacco Use Types Packs/Day Years [...] with others, in a hotel, in a detention, living outside on the street, on a [...] encounter Miscellaneous Notes * Telephone Encounter - Omari Meyer MA - 09/19/2024 2:47 PM EST Chart Prep Labs: done except CBC and Hepatitis C Images: done except MRI lumbar Vaccines due: yes Flu,PCV20, Hep A &B vaccine never done ,Zoster never done Referrals: complete Screenings: colonoscopy , mammogram , pap smear Overdue care gaps: PHQ-9, Oral Health documented in this encounter Plan of Treatment Not on file documented as of this encounter Visit Diagnoses Not on filedocumented in this encounter Additional Health Concerns Assessment Noted Time PHQ-9 Depression Total Score: 21 024 3:13 PM EDT documented as of this encounter Care Teams Coat Repair Inspector Relationship Specialty Start Date End Date Nidia Danielle NP [address] [place] [address] PCP - General Family Medicine 06/18/23 documented as of this encounter
--- OUTSIDE RECORDS SUMMARY | 2024-10-06 13:23 | XMS_ITS | Encounter Summary ---
Author Organization [employer] Address [address] [facility] [address] [place] [address] Care Team Providers Care Research Assistant Professor Name Role Phone ShakiraNidia willis CHICHO Primary Care Provider [phone] Encounter Details Date Type Department Care Team ([facility] st Contact Info) Description 09/14/2024 Orders Only [facility] MEDICINE [address] [place] [address] Nel Cruz, RN [address] [place] [address] Chronic hepatitis C without hepatic coma (CMS/HCC) Social History Tobacco Use Types Packs/Day [...] with others, in a hotel, in a fdc, living outside on the street, on a [...] as of this encounter Plan of Treatment Scheduled Orders Name Type Priority Associated Diagnoses Orde r Schedule Hepatitis C Viral RNA, Quantitative, Real-Time PCR Lab Routine Chronic hepatitis C without hepatic coma (CMS/HCC) Expected: 09/14/2024 (Approximate), Expires: 09/14/2025 documented as of this encounter Visit Diagnoses Diagnosis Chronic hepatitis C without hepatic coma (CMS/HCC) documented in this encounter Additional Health Concerns Assessment Noted Time PHQ-9 Depression Total Score: 21 024 3:13 PM EDT documented as of this encounter Care Teams Research Assistant Professor Relationship Specialty Start Date End Date Nidia Danielle NP 230 [place] [address] PCP - General Family Medicine 06/18/23 documented as of this encounter
--- OUTSIDE RECORDS SUMMARY | 2024-10-06 13:23 | XMS_ITS | Encounter Summary ---
Author Organization [employer] Address [address] [facility] [address] 7[address] [place] [address] Care Team Providers Care Design Supervisor Name Role Phone Nidia Danielle NP Primary Care Provider [phone] Reason for Visit * Reason Comments Med Refill Encounter Details Date Type Department Care Team (Late st Contact Info) Description 06/26/2024 Refill [facility] MEDICINE 230 [place] [address] Nidia Danielle NP 230 [place] [address] Osteomyelitis of lumbar spine (CMS/HCC) Social History [...] with others, in a hotel, in a fpc, living outside on the street, on a [...] documented as of this encounter Care Teams Design Supervisor Relationship Specialty Start Date End Date Nidia Danielle NP [address] [place] [id number] PCP - General Family Medicine 06/18/23 documented as of this encounter
--- OUTSIDE RECORDS SUMMARY | 2024-10-06 13:23 | XMS_ITS | Clinical Summary ---
Author Organization [employer] Address 75 [facility] 7t [place] [address] Care Team Providers Care Sas Analyst Name Role Phone ShakiraNidia willis CHICHO Primary Care Provider [phone] Allergies No known active allergies Medications Misc. Devices (Pulse Oximeter) mis USE DIRECTED FOR COUGH AND SHORTNESS OF BREATH 05/05/20 22 Active loratadine (Claritin) 10 MG tablet TAKE ONE TABLET BY MOUTH EVERY DAY 12/05/19 22 Active albuterol 108 (90 Base) MCG/ACT inhalerIndicati ons:Pulmonary emphysema, unspecified emphysema type (CMS/HCC),Histo ry of pneumonia,Anxie ty Inhale 2 puffs every 6 (six) hours if needed for wheezing. 18 g 11 10/21/19 24 025 Active nicotine (Nicoderm, Step 3) 7 MG/24HR patchIndication s:Tobacco use disorder Place 1 patch on the skin 1 (one) time each day at the same time. Begin after finishing the 14 mg patches. 14 patch 2 01/21/20 24 Active albuterol (2.5 MG/3ML) 0.083% nebulizer solutionIndicat ions:Pulmonary emphysema, unspecified emphysema type (CMS/HCC) USE 1 VIAL (2.5 MG) INHALED VIA NEBULIZER 3 TIMES A DAY 90 mL 1 06/26/20 24 Active lidocaine (Lidoderm) 5 % patchIndication s:Discitis, unspecified spinal region APPLY 1 PATCH TO RIGHT THIGH AND LEFT LOWER LEG 60 patch 1 07/25/20 24 Active melatonin 5 MG tablet Take 2 tablets (10 mg) by mouth at bedtime. 60 tablet 1 08/23/19 25 Active escitalopram (Lexapro) 20 MG tabletIndicatio ns:Depressive disorder Take 1 tablet (20 mg) by mouth Once per day. 30 tablet 2 10/06/19 25 025 Active Fluticasone-Niles meterol (Advair Diskus) 500-50 MCG/ACT aerosol powderIndicatio ns:Wheezing Take 1 puff by mouth 2 times daily. 60 each 3 10/06/19 25 025 Active nicotine polacrilex (Nicorette) 4 MG gumIndications: Encounter for smoking cessation counseling Chew 1 each (4 mg) every 2 (two) hours if needed for smoking cessation. 100 each 10/06/19 25 025 Active pregabalin (Lyrica) 300 MG capsuleIndicati ons:Osteomyelit is of lumbar spine (CMS/HCC) TAKE ONE CAPSULE BY MOUTH TWICE A DAY 56 capsule 10/06/19 25 Active famotidine (Pepcid) 20 MG tabletIndicatio ns:Other chest pain Take 1 tablet (20 mg) by mouth 2 times daily. 60 tablet 2 10/06/19 25 025 Active Advair Diskus 500-50 MCG/ACT aerosol powderIndicatio ns:Wheezing INHALE ONE PUFF BY MOUTH EVERY 12 HOURS, RINSE MOUTH AFTER USE. 60 each 1 05/31/20 24 025 Discontinued(Re order (will not trigger notification to Pharmacy)) escitalopram (Lexapro) 10 MG tabletIndicatio ns:Anxiety TAKE ONE TABLET BY MOUTH EVERY DAY 30 tablet 1 08/23/19 25 025 Discontinued(Do se adjustment) pregabalin (Lyrica) 300 MG capsuleIndicati ons:Osteomyelit is of lumbar spine (CMS/HCC) TAKE 1 CAPSULE BY MOUTH TWICE A DAY 60 capsule 08/23/19 25 025 Discontinued pregabalin (Lyrica) 300 MG capsuleIndicati ons:Osteomyelit is of lumbar spine (CMS/HCC) TAKE ONE CAPSULE BY MOUTH TWICE A DAY 32 capsule 09/21/19 25 025 Discontinued(Re order (will not trigger notification to Pharmacy)) Active Problems Problem Noted Date Diagnosed Date Retained dental root 03/17/2024 STI (sexually transmitted infection) 02/15/2024 Routine adult health maintenance 02/03/2024 Assessment & Plan (02/03/2024 12:54 PM EDT): -Mammogram: completed 2021 BIRADS-1 negative. Due 07/2024 -Cervical cancer screening: complete chart review and discuss at next visit if no results found -Colonoscopy: discuss in further detail at next visit -Lung CA: needs screening. Discuss at later visit -Dexa Scan: not due at this time -Hepatitis C Screen: completed at previous visit with positive findings. Patient advised to complete labs placed by [facility] hep C clinic after visit today and walk over to schedule an appointment with the team for treatment -HIV Screen: completed at previous visit with negative findings -Immunizations: discuss at next visit -symptoms of chest tightness and SOB appears to be r/t anxiety. No concern for immediate intervention at this time. Question association with known anxiety. Will continue to monitor Patient on methadone maintenance therapy 023 Hepatitis C infection 11/23/2020 IV drug user 11/23/2020 Opioid use disorder, severe, dependence 11/24/19 21 Osteomyelitis of lumbar spine 11/23/2020 Sepsis 11/23/2020 Tobacco use disorder 11/23/2020 Assessment & Plan (02/03/2024 12:16 PM EDT): -patient counseled on health benefits of smoking cessation -nicotine patches ordered to initiate quitting Epidural abscess 11/17/2020 Discitis 11/16/2020 Overview (07/21/2022): Added automatically from request for surgery [id number] Assessment & Plan (02/03/2024 3:45 PM EDT): -patient continues to have pain and associated mobility challenges -x-ray results from 11/16/23 as noted above discussed with patient -orders placed for MRI. Consider neurology/physiatry referral pending MRI results -CRP to assess for inflammatory process -will increase lyrica dose to 300mg -may also benefit from pain management services. 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 16 Pulmonary emphysema 09/19/2015 Encounters Date Type Department Care Team Description 10/06/2024 9:15 AM EST Office Visit [address] [address] Nidia Danielle NP Depressive disorder (Primary Dx); Anxiety; Wheezing; Other chest pain; Encounter for immunization; Encounter for smoking cessation counseling; Osteomyelitis of lumbar spine ([facility]); Abnormal complete blood count; Encounter for health-related screening 10/06/2024 Travel 09/21/[address] [address] Nidia Danielle NP Med Refill; PT1 Submitted 09/19/[address] [address] Omari Meyer MA chartprep 09/18/[address] [address] Nidia Danielle NP Med Refill 09/18/[address] [address] Nidia Danielle NP Osteomyelitis of lumbar spine ([facility]) 09/14/2024 Orders Only [address] [address] Nel Cruz, logistic manager hepatitis C without hepatic coma ([facility]) 08/23/[address] [address] Nidia Danielle NP Med Refill 08/22/[address] [address] Nidia Danielle NP Osteomyelitis of lumbar spine ([facility]) 08/22/[address] [address] Nidia Danielle NP Anxiety; Osteomyelitis of lumbar spine ([facility]) 08/11/[address] [address] Nidia Danielle NP No Show 07/31/2024 Telephone [facility] MEDICINE [address] [place] [address] Mitch Omari JOSELITO Chartprep 07/24/2024 Telephone [facility] MEDICINE [address] [place] [address] Nidia Danielle NP Med Refill 07/24/2024 Refill [facility] MEDICINE [address] [place] [address] Nidia Danielle NP Discitis, unspecified spinal region; Osteomyelitis of lumbar spine ([facility]) 07/14/2024 Telephone [facility] MEDICINE [address] [place] [address] Nidia Danielle NP No Show from Last 3 Months Immunizations Name Administration Dates Next Due Hep B, adult 10/06/2024 Influenza injectable quadriv alent IIV4 with preservative 04/23/2016 Influenza injectable quadrivalent preservative f ree 05/27/2022 Influenza, IIV3, injectable 08/19/2010 Pneumococcal Polysaccharide PPSV23 09/01/2011 Tdap 03/16/2019,09/01/2011 Social History Tobacco Use Types Packs/Day Years Used Date Smoking Tobacco: Every Day Cigarettes Passive Smoke Exposure: Current Smokeless Tobacco: Never Tobacco Cessation:Ready to Q uit: Not Asked; Counseling Given: Not Answered Alcohol Use Standard Drinks/Week Comments Not Currently [...] with others, in a hotel, in a jail, living outside on the street, on a [...] Orientation Straight 06/08/2022 10 :18 AM EDT Last Filed Vital Signs Vital Sign Reading [...] Mass Index 33.29 10/06/2024 9:45 AM EST Plan of Treatment Health Maintenance Due Date Last Done Comments CT Colonography 1969 Colonoscopy 1969 Colorectal Cancer Screening 1969 Dental Oral Exam 1969 Dental Prophylaxis 1969 Dental X-Ray: Bitewings 1969 Dental X-Ray: Full Mouth 1969 FIT DNA/Cologuard 1969 FIT 1969 FOBT 1969 Lipid Panel 1969 Sigmoidoscopy 1969 Hepatitis A Vaccines (1 of 2 - Risk 2-dose series) 02/17/1988 Pap Smear 1990 Cervical Cancer Screening 1999 HPV/Cotest 1999 Pneumococcal Vaccine: 50+ Years (2 of 2 - PCV) 09/01/2012 09/01/2011 Zoster Vaccines (1 of 2) 2019 Influenza Vaccine (#1) 2024 , 04/23/2016, 08/19/2010 Mammogram 08/05/2024 08/05/2022 Hepatitis B Vaccines (2 of 3 - 19+ 3-dose series) 11/03/2024 10/06/2024 SDOH Screening 01/20/2025 01/21/2024 Alcohol/Substance Use Screening 02/02/2025 02/03/2024 Depression Monitoring (PHQ-9) 04/05/2025, 10/06/2024 Depression Screening 10/06/2025 10/06/2024, 10/06/2024 Tobacco Screening 10/06/2025 10/06/2024 DTaP/Tdap/Td Vaccines (4 - T d or Tdap) 03/16/2029 03/16/2019, 09/01/2011, 03/14/2010 RSV Patients and Patients Aged 60 years or older (1 - 1-dose 75+ series) 02/17/2044 HIV Screening Completed 11/16/2023 COVID-19 Vaccine Completed 05/03/2024 HIB Vaccines Aged Out No longer eligi ble based on patient's age to complete this topic HPV Vaccines Aged Out No longer eligi ble based on patient's age to complete this topic IPV Vaccines Aged Out No longer eligi ble based on patient's age to complete this topic Meningococcal Vaccine Aged Out No ammon gatito eligible based on patient's age to complete this topic RSV under 20 months Aged Out No longe r eligible based on patient's age to complete this topic Rotavirus Vaccines Aged Out No longer eligible based on patient's age to complete this topic Procedures Procedure Name Priority Date/Time Associated Diagnosis Comments HIV 1/2 ANTIGEN/ANTIBODY, FOURTH GENERATION W/RFL Routine 11/16/2023 12:51 PM EDT History of hepatitis MAMMOGRAPHY Routine 08/05/2022 from Last 3 Months or Most Recently Relevant to Health Maintenance Results * HIV-1/2 Antigen and Antibodies, Fourth Generation, with Reflexes (11/16/2023 12:51 PM EDT) HIV AB/AG Nonreactive Nonreactive [facility] Comment:HIV-1 p24 Ag and/or HIV-1/HIV-2 Ab not detected.A test result that is nonreactive does not exclude thepossibility of exposure to or infection with HIV-1 and/orHIV-2. Nonreactive results in this assay for individualswith prior exposure to HIV-1 and/or HIV-2 may be due toantigen and antibody levels that are below the limit ofdetection of this assay.The [employer] HIV Ag/Ab Combo assay result andsupplemental assay results should be interpreted inconjunction with the patient's clinical presentation,history and other laboratory results. If the results areinconsistent with clinical evidence, additional testing issuggested to confirm the result. Blood Venous blood specimen / Unknown 11/16/2023 12:51 PM EDT 11/16/2023 3:53 PM EDT Nidia Danielle OCCUPATIONAL THERAPY TECHNICIAN LAB BLOOD ORDERABLES Final Resu lt [facility] [address] [place] [address] [phone] * Mammography (08/05/2022) Mammogram Bi-rads 1 Anatomical Region Laterality Modality Other Narrative 08/05/2022 Recommended routine screening Historical Provider HEALTH MAINTENANCE Final Result from Last 3 Months or Most Recently Relevant to Health Maintenance Insurance [place] [facility] MEDICAID STAND ADULT Care Teams Sas Analyst Relationship Specialty Start Date End Date Nidia Danielle NP [address] [place] [id number] PCP - General Family Medicine 06/18/23
--- OUTSIDE RECORDS SUMMARY | 2024-10-06 13:23 | XMS_ITS | Encounter Summary ---
Author Organization [employer] Address [address] [facility] [address] [place] [address] Care Team Providers Care Lithopone Mill Worker Name Role Phone Nidia Danielle NP Primary Care Provider [phone] Reason for Visit * Reason Onset Date Comments Med Refill 06/14/2024 Encounter Details Date Type Department Care Team ([facility] st Contact Info) Description 06/14/2024 Telephone [facility] MEDICINE [address] [place] [address] Nidia Danielle NP [address] [place] [address] Med Refill Social History Tobacco Use Types [...] with others, in a hotel, in a halfway, living outside on the street, on a [...] Telephone Encounter - Juju Lynne LPN - 06/14/2024 10:54 AM EST MALE IMPERSONATOR checked on 06/14/24 LYRICA last filled on 05/29/24 #60 (30 day supply) to soon for refill. * Telephone Encounter - Mohan Welsh - 06/14/2024 10:49 AM EST TC from pt requesting medication refill. Medications needing refill : pregabalin (Lyrica) 300 MG capsule To be sent to: [facility] [place] [address] documented in this encounter Plan of Treatment Not on file documented as of this encounter Visit Diagnoses Not on filedocumented in this encounter Additional Health Concerns Assessment Noted Time PHQ-9 Depression Total Score: 21 01/20/ 024 3:13 PM EDT documented as of this encounter Care Teams Lithopone Mill Worker Relationship Specialty Start Date End Date Nidia Danielle NP [address] [place] [address] PCP - General Family Medicine 06/18/23 documented as of this encounter
--- OUTSIDE RECORDS SUMMARY | 2024-10-06 13:23 | XMS_ITS | Encounter Summary ---
Author Organization [email or web address] Address [address] [facility] [address] [place] [address] Care Team Providers Care Hearing Dog Trainer Name Role Phone Nidia Danielle NP Primary Care Provider [phone] Reason for Visit * Reason Comments Med Refill Encounter Details Date Type Department Care Team (Late st Contact Info) Description 03/03/[address] [facility] MEDICINE [address] [place] [address] Nidia Danielle NP [address] [place] [address] Discitis, unspecified spinal region Social History Tobacco Use Types Packs/Day Years [...] as of this encounter Visit Diagnoses Diagnosis Discitis, unspecified spinal region documented in this encounter Additional Health Concerns Assessment Noted Time PHQ-9 Depression Total Score: 21 024 3:13 PM EDT documented as of this encounter Care Teams Hearing Dog Trainer Relationship Specialty Start Date End Date Nidia Danielle NP [address] [place] [id number] PCP - General Family Medicine 06/18/23 documented as of this encounter
--- OUTSIDE RECORDS SUMMARY | 2024-10-06 13:23 | XMS_ITS | Encounter Summary ---
Author Organization [employer] Address [address] 7t [place] [address] Care Team Providers Care Director Family Name Role Phone Nidia Danielle NP Primary Care Provider [phone] Reason for Visit * Reason Onset Date Comments Nurse Triage 2024 Encounter Details Date Type Department Care Team ([facility] st Contact Info) Description 2024 Telephone [facility] MEDICINE [address] [place] [address] Nidia Danielle NP [address] [place] [address] Nurse Triage Social History Tobacco Use Types Packs/Day Years [...] with others, in a hotel, in a fci, living outside on the street, on a [...] the past 12 months, has t he [employer], gas, oil or water company threatened to [...] encounter Miscellaneous Notes * Telephone Encounter - Manuel Combs RN - 02/17/2024 10:42 AM EDT T/C to pt. For status check and to schedule ED follow up, first time pt.'s voice was not clear and pt. Hang up the call. T/C x 2 am, no answer. LVM to call back on [phone]. RN try to find ED documents on [facility] and [employer] portal, No ED summery available. * Telephone Encounter - Tara Waller RN - 2024 11:42 AM EDT Call returned to Bina Tejeda to triage below. Reports having increased shortness of breath x 1 day. Per pt on 3L of O2 at home. Pt does not have pulse oximeter. Per pt was also having bilateral leg swelling yesterday. Per pt mild improvement with elevation. Pt denies any BERNARD, CP or wheezing.Pt advised of disposition, agrees to call EMS now for evaluation. Sent to team for ER status check PRN. Protocol Used: Breathing Difficulty (Adult) Protocol-Based Disposition: Go to ED Now Positive Triage Question: * Moderate difficulty breathing (e.g., speaks in phrases, SOB even at rest, pulse 100-120) of new-onset or worse than normal * All higher-acuity triage questions were negative Care Advice Discussed: * Reasons To Call Back - Severe difficulty breathing occurs - You become worse * Telephone Encounter - Bryan Khan - 2024 11:35 AM EDT Symptom: Breathing Trouble Outcome: Transfer to a nurse or provider NOW! Reason: Uses oxygen The caller accepted this outcome documented in this encounter Plan of Treatment Not on file documented as of this encounter Visit Diagnoses Not on filedocumented in this encounter Additional Health Concerns Assessment Noted Time PHQ-9 Depression Total Score: 21 01/20/ 024 3:13 PM EDT documented as of this encounter Care Teams Director Family Relationship Specialty Start Date End Date Nidia Danielle NP [address] [place] [address] PCP - General Family Medicine 06/18/23 documented as of this encounter
--- OUTSIDE RECORDS SUMMARY | 2024-10-06 13:23 | XMS_ITS | Encounter Summary ---
Author Organization [employer] Address [address] 7t [place] [address] Care Team Providers Care Panel Flow Machine Operator Name Role Phone Nidia Danielle NP Primary Care Provider [phone] Reason for Visit * Reason Comments Med Refill Encounter Details Date Type Department Care Team (Late st Contact Info) Description 08/22/2024 Refill [facility] MEDICINE 230 [place] [address] Nidia Danielle NP 230 [place] [address] Osteomyelitis of lumbar spine (CMS/HCC) Social History [...] with others, in a hotel, in a assisted, living outside on the street, on a [...] documented as of this encounter Care Teams Panel Flow Machine Operator Relationship Specialty Start Date End Date Nidia Danielle NP [address] [place] [address] PCP - General Family Medicine 06/18/23 documented as of this encounter
--- OUTSIDE RECORDS SUMMARY | 2024-10-06 13:23 | XMS_ITS | Encounter Summary ---
Author Organization [employer] Address [address] 7t [place] [address] Care Team Providers Care Singer And Unloader Name Role Phone Nidia Danielle NP Primary Care Provider [phone] Reason for Visit * Reason Onset Date Comments Med Refill 09/18/2024 Encounter Details Date Type Department Care Team ([facility] st Contact Info) Description 09/18/2024 Telephone [facility] MEDICINE 230 [place] [address] Nidia Danielle NP 230 [place] [address] Med Refill Social History Tobacco Use Types [...] with others, in a hotel, in a prison, living outside on the street, on a [...] the past 12 months, has t he [employer], gas, oil or water company threatened to [...] encounter Miscellaneous Notes * Telephone Encounter - Nidia Danielle NP - 09/21/2024 11:23 AM EST Partial fill sent to pharmacy until patient is seen in the clinic * Telephone Encounter - Jake Rich - 09/21/2024 9:07 AM EST Pt checking on status of medication pregabalin (Lyrica) 300 MG capsule * Telephone Encounter - Juju Lynne LPN - 09/18/2024 2:51 PM EST Medication pended to PCP. * Telephone Encounter - Sue Jaimes - 09/18/2024 2:47 PM EST TC from pt requesting medication refill. Medications needing refill : pregabalin (Lyrica) 300 MG capsule To be sent to: [facility] - [place], [place] - [address] [facility] documented in this encounter Plan of Treatment Not on file documented as of this encounter Visit Diagnoses Not on filedocumented in this encounter Additional Health Concerns Assessment Noted Time PHQ-9 Depression Total Score: 21 024 3:13 PM EDT documented as of this encounter Care Teams Singer And Unloader Relationship Specialty Start Date End Date Nidia Danielle NP 230 [place] [address] PCP - General Family Medicine 06/18/23 documented as of this encounter
--- OUTSIDE RECORDS SUMMARY | 2024-10-06 13:23 | XMS_ITS | Encounter Summary ---
Author Organization [employer] Address [address] 7t [place] [address] Care Team Providers Care Window Tinter Name Role Phone Nidia Danielle NP Primary Care Provider [phone] Reason for Visit * Reason Onset Date Comments Med Refill 06/26/2024 Encounter Details Date Type Department Care Team ([facility] st Contact Info) Description 06/26/2024 Telephone [facility] MEDICINE 230 [place] [address] Nidia Danielle NP 230 [place] [address] Med Refill Social History Tobacco Use Types [...] with others, in a hotel, in a senior care, living outside on the street, on a [...] Telephone Encounter - Juju Lynne LPN - 06/26/2024 10:03 AM EST Medications pended to PCP for approval. * Telephone Encounter - Sue Jaimes - 06/26/2024 9:55 AM EST TC from pt requesting medication refill. Medications needing refill : albuterol (2.5 MG/3ML) 0.083% nebulizer solution albuterol 108 (90 Base) MCG/ACT inhaler escitalopram (Lexapro) 10 MG tablet pregabalin (Lyrica) 300 MG capsule melatonin 5 MG tablet To be sent to: [facility] documented in this encounter Plan of Treatment Not on file documented as of this encounter Visit Diagnoses Not on filedocumented in this encounter Additional Health Concerns Assessment Noted Time PHQ-9 Depression Total Score: 21 01/20/ 024 3:13 PM EDT documented as of this encounter Care Teams Window Tinter Relationship Specialty Start Date End Date Nidia Danielle NP 230 [place] [address] PCP - General Family Medicine 06/18/23 documented as of this encounter
--- OUTSIDE RECORDS SUMMARY | 2024-10-06 13:24 | XMS_ITS | Encounter Summary ---
Author Organization [employer] Address [address] [place] [address] 7t [place] [address] Care Team Providers Care Business Analysis Analyst Name Role Phone Nidia Danielle NP Primary Care Provider [phone] Reason for Visit * Reason Onset Date Comments Med Refill 10/27/2023 Encounter Details Date Type Department Care Team ([facility] st Contact Info) Description 10/27/2023 Telephone [facility] MEDICINE [address] [place] [address] Nidia Danielle NP [address] [place] [address] Med Refill Social History Tobacco Use Types [...] encounter Miscellaneous Notes * Telephone Encounter - Eliana Castaneda - 10/27/2023 2:16 PM EDT TC from pt requesting medication refill. Medications needing refill : pregabalin (Lyrica) 200 MG capsule Pt out of med To be sent to: [facility] - [place], [place] - [address] [place] [address] documented in this encounter Plan of Treatment Not on file documented as of this encounter Visit Diagnoses Not on filedocumented in this encounter Care Teams Business Analysis Analyst Relationship Specialty Start Date End Date Nidia Danielle NP 230 [place] [address] PCP - General Family Medicine 06/18/23 documented as of this encounter
--- OUTSIDE RECORDS SUMMARY | 2024-10-06 13:24 | XMS_ITS | Encounter Summary ---
Author Organization [employer] [facility] Address [address] [place] [address] 7t [place] [address] Care Team Providers Care Appliance Painter And Refinisher Name Role Phone Nidia Danielle NP Primary Care Provider [phone] Reason for Visit * Reason Comments Med Refill Encounter Details Date Type Department Care Team (Late st Contact Info) Description 07/04/2023 Refill [facility] MEDICINE 230 [place] [address] [facility] 230 [place] [address] Discitis, unspecified spinal region Social History Tobacco [...] unspecified spinal region documented in this encounter Care Teams Appliance Painter And Refinisher Relationship Specialty Start Date End Date Nidia Danielle NP 230 [place] [address] PCP - General Family Medicine 06/18/23 documented as of this encounter
--- OUTSIDE RECORDS SUMMARY | 2024-10-06 13:24 | XMS_ITS | Encounter Summary ---
Author Organization [employer] Address [address] 7t [place] [address] Care Team Providers Care Header Up Name Role Phone Nidia Danielle NP Primary Care Provider [phone] Reason for Visit * Reason Onset Date Comments Med Refill 12/30/2023 Encounter Details Date Type Department Care Team ([facility] st Contact Info) Description 12/30/2023 Telephone [facility] MEDICINE [address] [place] [address] Nidia Danielle NP 230 [place] [address] Med Refill Social History Tobacco Use Types Packs/Day Years Used Date Smoking Tobacco: Former Cigarettes Passive Smoke Exposure: Current Smokeless Tobacco: Never Alcohol Use Standard Drinks/Week Comments Not Currently 0 (1 standard drink = 0.6 oz pur e alcohol) Housing Stability Answer Date Recorded What is your housing situation today? I do not have housing (Staying with others, in a hotel, in a assisted, living outside on the street, on a beach, in a car, or in a park 11/12/[address] you li ve. Do you have problems with any of the following? Not on file 11/12/2023 Transportation Answer Date Recorded In the past 12 months, has l ack of transportation kept you from medical appts, meetings, work or from getting things needed for daily living? Yes, it has kept me from medical appointments or getting medications. 11/12/2023 Comments No Sex and Gender Information Value Date Recorded Sex Assigned at Female 06/08/2022 10:18 AM EDT Legal Sex Female 10:18 AM EDT Gender Identity Female 06/08/2022 10:18 AM EDT Sexual Orientation Straight 06/08/2022 10 :18 AM EDT documented as of this encounter Miscellaneous Notes * Telephone Encounter - Juju Lynne LPN - 12/30/2023 10:45 AM EDT SPINNERET PERSON checked on 12/30/23 medication last filled on 12/08/23 medication to soon for refill. * Telephone Encounter - Lindsay Voss - 12/30/2023 10:39 AM EDT TC from pt requesting medication refill. Medications needing refill : pregabalin (Lyrica) 200 MG capsule To be sent to: [facility] - [place] [address] documented in this encounter Plan of Treatment Not on file documented as of this encounter Visit Diagnoses Not on filedocumented in this encounter Care Teams Header Up Relationship Specialty Start Date End Date Nidia Danielle NP 230 [place] [address] PCP - General Family Medicine 06/18/23 documented as of this encounter
--- OUTSIDE RECORDS SUMMARY | 2024-10-06 13:24 | XMS_ITS | Encounter Summary ---
Author Organization [employer] Address [address] 7t [place] [address] Care Team Providers Care 2Nd Pressman Name Role Phone Nidia Danielle NP Primary Care Provider [phone] Reason for Visit * Reason Comments Med Refill Encounter Details Date Type Department Care Team (Late st Contact Info) Description 05/25/2024 Refill [facility] MEDICINE 230 [place] [address] Nidia Danielle NP [address] [place] [address] Osteomyelitis of lumbar spine (CMS/HCC) Social History [...] with others, in a hotel, in a custodial, living outside on the street, on a [...] documented as of this encounter Care Teams 2Nd Pressman Relationship Specialty Start Date End Date Nidia Danielle NP [address] [place] [address] PCP - General Family Medicine 06/18/23 documented as of this encounter
--- OUTSIDE RECORDS SUMMARY | 2024-10-06 13:24 | XMS_ITS | Encounter Summary ---
Author Organization [employer] Address [address] 7t [place] [address] Care Team Providers Care Solutions Analyst Name Role Phone Nidia Danielle NP Primary Care Provider [phone] Reason for Visit * Reason Comments Med Refill Encounter Details Date Type Department Care Team ([facility] st Contact Info) Description 09/28/2023 Refill [facility] MEDICINE 230 [place] [address] [facility] 230 [place], [place] [phone] Wheezing Social History Tobacco Use Types Packs/Day Years [...] Telephone Encounter - Nidia Danielle NP - 09/30/2023 12:19 PM EST Approving, but needs appt for additional refills. documented in this encounter Plan of Treatment Not on file documented as of this encounter Visit Diagnoses Diagnosis Wheezing documented in this encounter Care Teams Solutions Analyst Relationship Specialty Start Date End Date Nidia Danielle NP 230 [place] [address] PCP - General Family Medicine 06/18/23 documented as of this encounter
--- OUTSIDE RECORDS SUMMARY | 2024-10-06 13:24 | XMS_ITS | Encounter Summary ---
Author Organization [employer] [facility] Address [address] [facility] 7t [place] [address] Care Team Providers Care Silversmith Apprentice Name Role Phone Nidia Danielle NP Primary Care Provider [phone] Encounter Details Date Type Department Care Team ([facility] st Contact Info) Description 06/29/2023 Abstract [facility]INE 230 [place] [address] Alvina Avalos Social History Tobacco Use Types Packs/Day Years [...] on file documented as of this encounter Procedures Procedure Name Priority Date/Time Associated Diagnosis Comments MAMMOGRAPHY Routine 08/05/2022 documented in this encounter Results * Mammography (08/05/2022) Mammogram Bi-rads 1 Anatomical Region Laterality Modality Other Narrative 08/05/2022 Recommended routine screening us Historical Provider HEALTH MAINTENANCE Final Result documented in this encounter Visit Diagnoses Not on filedocumented in this encounter Care Teams Silversmith Apprentice Relationship Specialty Start Date End Date Nidia Danielle NP 230 [place] [address] PCP - General Family Medicine 06/18/23 documented as of this encounter
--- OUTSIDE RECORDS SUMMARY | 2024-10-06 13:24 | XMS_ITS | Encounter Summary ---
Author Organization [employer] Address [address] 7t [place] [address] Care Team Providers Care Fish Smoker Name Role Phone Nidia Danielle NP Primary Care Provider [phone] Reason for Visit * Reason Onset Date Comments Med Refill 10/29/2023 Encounter Details Date Type Department Care Team ([facility] st Contact Info) Description 10/29/2023 Telephone [facility] MEDICINE 230 [place] [address] Nidia Danielle NP [address] [place] [address] Med Refill Social History Tobacco Use Types [...] encounter Miscellaneous Notes * Telephone Encounter - Georgia Mcqueen - 10/29/2023 2:00 PM EDT Tc from pt would like to know if medication lyrica will be sent today . states is out of meds . * Telephone Encounter - Juju Lynne LPN - 10/29/2023 9:05 AM EDT 7 day supply of Lyrica was sent on 10/21/23. GAS APPLIANCE INSTALLER checked on 10/29/23 #21 dispensed on 10/24/23. See TCfrom 10/21/23. Patient has appointment scheduled for 11/12/23. Please review and advise. * Telephone Encounter - Eliana Castaneda - 10/29/2023 8:32 AM EDT TC from pt requesting medication refill. Medications needing refill : pregabalin (Lyrica) 200 MG capsule Mom stated that they sent her 21 on 10/20 but by tomorrow she will need more To be sent to: [facility] - [place] - [address] [place] [address] documented in this encounter Plan of Treatment Not on file documented as of this encounter Visit Diagnoses Not on filedocumented in this encounter Care Teams Fish Smoker Relationship Specialty Start Date End Date Nidia Danielle NP [address] [place] [address] PCP - General Family Medicine 06/18/23 documented as of this encounter
--- OUTSIDE RECORDS SUMMARY | 2024-10-06 13:24 | XMS_ITS | Encounter Summary ---
Author Organization [employer] Address [address] [facility] 7t [place] [address] Care Team Providers Care Sales Service Professional Name Role Phone [place] [facility] Primary Care Provider [phone] Deyanira Schrader MD Primary Care Pro vider Nidia Danielle NP Primary Care Provider [phone] Encounter Details Date Type Department Care Team (Late st Contact Info) Description 09/24/2022 Telephone [facility] MEDICINE 230 [place], [place] [phone] [place] [facility] 230 [place], [place] [phone] Social History Tobacco Use Types Packs/Day Years [...] was confirmed or suspected to have Coronavirus/COVID-19? Unable to assess 09/11/2022 5:18 PM EST documented as of this encounter Plan of Treatment Not on file documented as of this encounter Visit Diagnoses Not on filedocumented in this encounter Care Teams Sales Service Professional Relationship Specialty Start Date End Date Sri White FNP 230 [place] [address] PCP - General Family Medicine 06/29/22 05/17/23 Deyanira Schrader MD 230 [place] [address] PCP - General Internal Medicine 05/18/23 06/17/23 Nidia Danielle NP 230 [place] [address] PCP - General Family Medicine 06/18/23 documented as of this encounter
--- OUTSIDE RECORDS SUMMARY | 2024-10-06 13:24 | XMS_ITS | Encounter Summary ---
Author Organization [employer] Address [address] 7t [place] [address] Care Team Providers Care Dynamotor Repairer Name Role Phone Nidia Danielle NP Primary Care Provider [phone] Reason for Visit * Reason Comments Med Refill Encounter Details Date Type Department Care Team ([facility] st Contact Info) Description 08/28/2023 Refill [facility] MEDICINE 230 [place], [place] [phone] [facility] 230 [place] [employer], [place] [phone] Anxiety Social History Tobacco Use Types Packs/Day Years [...] Telephone Encounter - Nidia Danielle NP - 08/30/2023 9:01 PM EST Approving, but needs appt for additional refills. documented in this encounter Plan of Treatment Not on file documented as of this encounter Visit Diagnoses Diagnosis Anxiety Anxiety state, unspecified documented in this encounter Care Teams Dynamotor Repairer Relationship Specialty Start Date End Date Nidia Danielle NP 230 [place] [address] PCP - General Family Medicine 06/18/23 documented as of this encounter
--- OUTSIDE RECORDS SUMMARY | 2024-10-06 13:24 | XMS_ITS | Encounter Summary ---
Author Organization [employer] Address [address]t [place] [address] Care Team Providers Care Skilled Laborer Name Role Phone Nidia Danielle NP Primary Care Provider [phone] Reason for Visit * Reason Comments Med Refill Encounter Details Date Type Department Care Team (Late st Contact Info) Description 05/26/2024 Refill [facility] MEDICINE 230 [place] [address] Nidia Danielle NP 230 [place] [address] Osteomyelitis of lumbar spine (CMS/HCC) Social History [...] with others, in a hotel, in a nursing home, living outside on the street, on a [...] documented as of this encounter Care Teams Skilled Laborer Relationship Specialty Start Date End Date Nidia Danielle NP [address] [place] [address] PCP - General Family Medicine 06/18/23 documented as of this encounter
--- OUTSIDE RECORDS SUMMARY | 2024-10-06 13:24 | XMS_ITS | Encounter Summary ---
Author Organization [employer] Address [address] 7t [place] [address] Care Team Providers Care Sweet Pickled Fruit Maker Name Role Phone Nidia Danielle NP Primary Care Provider [phone] Reason for Visit * Reason Comments Med Refill Encounter Details Date Type Department Care Team (Late st Contact Info) Description 09/24/2023 Refill [facility] MEDICINE 230 [place] [address] Nidia Danielle NP 230 [place] [address] Anxiety Social History Tobacco Use Types Packs/Day [...] Telephone Encounter - Nidia Danielle NP - 09/24/2023 1:13 PM EST Approving, but needs appt for additional refills. documented in this encounter Plan of Treatment Not on file documented as of this encounter Visit Diagnoses Diagnosis Anxiety Anxiety state, unspecified documented in this encounter Care Teams Sweet Pickled Fruit Maker Relationship Specialty Start Date End Date Nidia Danielle NP [address] [place] [address] PCP - General Family Medicine 06/18/23 documented as of this encounter
--- OUTSIDE RECORDS SUMMARY | 2024-10-06 13:24 | XMS_ITS | Encounter Summary ---
Author Organization [employer] Address [address] 7t [place] [address] Care Team Providers Care Project Analyst Name Role Phone Nidia Danielle NP Primary Care Provider [phone] Reason for Visit * Reason Comments Med Refill Encounter Details Date Type Department Care Team (Late st Contact Info) Description 05/27/2024 Refill [facility] MEDICINE 230 [place] [address] Nidia Danielle NP 230 [place] [address] Osteomyelitis of lumbar spine (CMS/HCC) Social History [...] with others, in a hotel, in a [place] [facility], living outside on the street, on a [...] documented as of this encounter Care Teams Project Analyst Relationship Specialty Start Date End Date Nidia Danielle NP [address] [place] [address] PCP - General Family Medicine 06/18/23 documented as of this encounter
--- OUTSIDE RECORDS SUMMARY | 2024-10-06 13:24 | XMS_ITS | Encounter Summary ---
Author Organization [employer] [facility] Address [address] [place] [address] 7t [place] [address] Care Team Providers Care Public Health Educator Name Role Phone Nidia Danielle NP Primary Care Provider [phone] Reason for Visit * Reason Comments Med Refill Encounter Details Date Type Department Care Team (Late st Contact Info) Description 10/29/2023 Refill [facility] MEDICINE [address] [place] [phone] Name, MD Jose D [address] [place] [address] Discitis, unspecified spinal region Social History Tobacco [...] region documented in this encounter Care Teams Public Health Educator Relationship Specialty Start Date End Date Nidia Danielle NP [address] [place] [address] PCP - General Family Medicine 06/18/23 documented as of this encounter
--- OUTSIDE RECORDS SUMMARY | 2024-10-06 13:24 | XMS_ITS | Clinical Summary ---
Author Organization [facility] Address [address] [place] [id number] Care Team Providers Care Blurb Writer Name Role Phone Unknown Primary Care Provider [phone] Allergies No known active allergies Medications Medication Sig Dispensed Refills Start Date End Date Status pregabalin (LYRICA) 200 MG capsule Take 200 mg by mouth 3 (three) times a day. 10/26/2020 Active levoFLOXacin (LEVAQUIN) 750 MG tabletIndications:Dis citis of lumbosacral region,Epidural abscess Take 1 tablet (750 mg total) by mouth daily. 30 tablet 11/23/2020 Active doxycycline (VIBRAMYCIN) 100 MG capsuleIndications:Di scitis of lumbosacral region,Epidural abscess Take 1 capsule (100 mg total) by mouth 2 (two) times a day. 60 capsule 11/23/2020 Active Active Problems Problem Noted Date Diagnosed Date Osteomyelitis of lumbar spine 11/23/2020 IV drug user 11/23/2020 Opioid use disorder, severe, dependence 11/24/19 21 Tobacco use disorder 11/23/2020 Hepatitis C infection 11/23/2020 Epidural abscess 11/17/2020 Discitis 11/16/2020 Overview (11/18/2020): Added automatically from request for surgery [id number] Resolved Problems Problem Noted Date Diagnosed Date Resolved Date Sepsis 11/23/2020 10/21/2023 Social History Tobacco Use Types Packs/Day Years Used Date Smoking Tobacco: Every Day Smokeless Tobacco: Never Sex and Gender Information Value Date Recorded Sex Assigned at Not on file Gender Identity Not on file Sexual Orientation Not on file Last Filed Vital Signs Vital Sign Reading Time Taken Comments Blood Pressure 102/70 11/22/2020 9:30 PM EDT Simultaneous filing. User may not have seen previous data. Pulse 75 11/22/2020 9:30 PM EDT Temperature 37.3 ??C (99.1 ??F) 11/22/2020 9 :30 PM EDT Respiratory Rate 18 11/22/2020 9:30 PM EDT Oxygen Saturation 99% 11/22/2020 9:3 0 PM EDT Inhaled Oxygen Concentration - - Weight 58 kg (127 lb 13.9 oz) 11/17/2020 6:37 AM EDT Height 149.9 cm (4' 11 ) 11/17/2020 4:0 1 AM EDT Body Mass Index 25.83 11/17/2020 4:01 AM EDT Plan of Treatment Health Maintenance Due Date Last Done Comments DTaP/Tdap/Td Vaccines (1 - Tdap) 02/17/1988 Hepatitis B Vaccines (1 of 3 - 19+ 3-dose series) 02/17/1988 Pap Smear (Ages 21-65) 1990 Mammogram 2009 Colonoscopy 2014 Pneumococcal Vaccines 50+ (1 of 1 - PCV) 2019 Zoster (Shingles) Vaccine (1 of 2) 2019 Influenza Vaccine 03/09/2024 COVID-19 Vaccine (1 - 2023- season) 2024 HIV Screening Completed 11/18/2020 Hepatitis C Virus Screening Completed 11/07, 11/18/2020, 11/18/2020, Additional history exists Pneumococcal Vaccine: Pediatric (0-5 Years) and At-Risk Patients (6 to 49 Years) Aged Out No longer eligible based on patient's age to complete this topic Procedures Procedure Name Priority Date/Time Associated Diagnosis Comments HIV 1/2 AG/AB CMIA REFLEX TO CONFIRMATION Routine 11/18/2020 2:50 AM EDT HEPATITIS PANEL, ACUTE Routine 11/18/2020 2:50 AM EDT from Last 3 Months or Most Recently Relevant to Health Maintenance Results * HIV 1/2 Ag/Ab CMIA Reflex to Confirmation (11/18/2020 2:50 AM EDT) HIV 1/2 Ag/Ab CMIA Nonreactive Nonreactive [facility] Comment:Results show no evid ence of infection by HIV 1/2. If clinically indicated, repeat CMIA or test by nucleic acid amplification. Blood specimen (specimen) Blood specimen / Unknown 11/18/2020 2:50 AM EDT 11/18/2020 3:07 AM EDT [facility] BLOOD ORDERABLES [facility] * (ABNORMAL) Hepatitis Panel, Acute (11/18/2020 2:50 AM EDT) Pathologist [facility] Hepatitis A Antibody IgM Nonreactive Nonreactive S/CO [facility] Hepatitis B Core Antibody IgM Nonreactive Nonreactive [facility] Hepatitis B Surface Ag Screen Nonreactive Nonreactive [facility] Hepatitis C Antibody 14.95(H) 0.00 - 0.79 S/CO ratio [facility] Hepatitis C Antibody Interpretation Reactive(A) Nonreactive [facility] Hepatitis Interpretation: These results indicate Hepatitis C infection. [facility]ITAL [facility] Blood specimen (specimen) Blood specimen / Unknown 11/18/2020 2:50 AM EDT 11/18/2020 3:07 AM EDT [facility] BLOOD ORDERABLES Performing Organization Address [facility] [[email or web address]] Co de Phone Number [facility]OSPITAL [facility] from Last 3 Months or Most Recently Relevant to Health Maintenance Advance Directives * Full Code (Latest Code Status on File) Date Activated Date Inactivated Comments 11/17/2020 1:13 AM Healthcare Agents on File Name Relationship Healthcare Agent Relationshi p Communication David JuanAleman Adult child 4. Next of Kin ( Spouse, Adult Child, Parent, Adult Sibling, Grandparent) Care Teams Blurb Writer Relationship Specialty Start Date End Date Unknown Unknow Provider Address PCP - General 11/20/20
--- OUTSIDE RECORDS SUMMARY | 2024-10-06 13:24 | XMS_ITS | Encounter Summary ---
Author Organization [employer] Address [address] [place] [address] Care Team Providers Care Rental Car Porter Name Role Phone Sri White PICKUP DRIVER Primary Care Provider [phone] Deyanira Schrader MD Primary Care Pro vider Nidia Danielle NP Primary Care Provider [phone] Reason for Visit * Reason Comments Med Refill Encounter Details Date Type Department Care Team (Late st Contact Info) Description 09/21/2022 Refill [facility] [address] [place] [address] Name, MD Jose D [address] [place] [address] Pulmonary emphysema, unspecified emphysema type (CMS/HCC); History of pneumonia; Anxiety Social History Tobacco Use Types Packs/Day [...] * Telephone Encounter - Jimbo Arenas - 09/24/2022 10:15 AM EST Tc from pt requesting med refill Escitalopram 10 mg documented in this encounter Plan of Treatment Not on file documented as of this encounter Visit Diagnoses Diagnosis Pulmonary emphysema, unspecified emphysema type (CMS/HCC) History of pneumonia Personal history of pneumonia (recurrent) Anxiety Anxiety state, unspecified documented in this encounter Care Teams Rental Car Porter Relationship Specialty Start Date End Date CindySri FNP [address] [place] [address] PCP - General Family Medicine 06/29/22 05/17/23 Deyanira Schrader MD [address] [place] [id number] PCP - General Internal Medicine 05/18/23 06/17/23 Nidia Danielle NP [address] [place] [address] PCP - General Family Medicine 06/18/23 documented as of this encounter
--- OUTSIDE RECORDS SUMMARY | 2024-10-06 13:24 | XMS_ITS | Encounter Summary ---
Author Organization [employer] Address [address] [facility] [address] [place] [address] Care Team Providers Care Automobile Relocation Engineer Name Role Phone Nidia Danielle NP Primary Care Provider [phone] Reason for Visit * Reason Comments Med Refill Encounter Details Date Type Department Care Team (Late st Contact Info) Description 12/29/2023 Refill [facility] [address] [place] [address] Nidia Danielle NP [address] [place] [address] Discitis, unspecified spinal region Social History Tobacco [...] with others, in a hotel, in a group home, living outside on the street, on [...] region documented in this encounter Care Teams Automobile Relocation Engineer Relationship Specialty Start Date End Date Nidia Danielle NP [address] [place] [address] PCP - General Family Medicine 06/18/23 documented as of this encounter
--- OUTSIDE RECORDS SUMMARY | 2024-10-06 13:24 | XMS_ITS | Encounter Summary ---
Author Organization [employer] Address [address] [facility] [address] [place] [address] Care Team Providers Care Engraver Hand Soft Metals Name Role Phone [facility] Primary Care Provider [phone] Deyanira Schrader MD Primary Care Pro vider Nidia Danielle NP Primary Care Provider [phone] Reason for Visit * Reason Onset Date Comments Med Refill 12/07/2022 Encounter Details Date Type Department Care Team (Late st Contact Info) Description 12/07/2022 Telephone [facility] [address] [place], [place] [phone] [facility] [address] [place], [place] [id number] Med Refill Social History Tobacco Use Types [...] encounter Miscellaneous Notes * Telephone Encounter - Michelle Aleman LPN - 12/07/2022 2:19 PM EDT Med has been already pended to pcp today * Telephone Encounter - Georgia Charisse - 12/07/2022 2:08 PM EDT Tc from pt requesting med refill on medication pregabalin (Lyrica) 200 MG capsule. Pt [facility] . documented in this encounter Plan of Treatment Not on file documented as of this encounter Visit Diagnoses Not on filedocumented in this encounter Care Teams Engraver Hand Soft Metals Relationship Specialty Start Date End Date Sri White FNP [address] [place] [id number] PCP - General Family Medicine 06/29/22 05/17/23 Deyanira Schrader MD [address] [place] [id number] PCP - General Internal Medicine 05/18/23 06/17/23 Nidia Danielle NP [address] [place] [id number] PCP - General Family Medicine 06/18/23 documented as of this encounter
[2024-10-06 13:37] LABS: MANUAL DIFF FLAG NO
[2024-10-06 13:53] LABS: Basophils Percent Auto 0.3 % (0-2); Eosinophils Absolute Auto 0.1 X10*3/uL (0.0-0.4); Eosinophils Percent Auto 1.2 % (0-4); Hematocrit 42.5 % (37.0-47.0); Hemoglobin 13.5 g/dl (12.0-16.0); Imm Gran Abs Auto 0.04 X10*3/uL (0.00-0.03); Imm Gran Pct Auto 0.4 % (0.0-0.4); Lymphocytes Absolute Auto 2.2 X10*3/uL (1.2-4.9); Mean Corpuscular HGB Conc 31.8 g/dl (31.0-35.0); Mean Corpuscular Volume 91.4 fL (80.0-98.0); Mean Platelet Volume 10.4 fL (9.4-12.3); Monocytes Absolute Auto 0.4 X10*3/uL (0.1-1.2); Monocytes Percent Auto 4.3 % (2-11); Neutrophils Absolute Auto 6.3 x10*3/uL (2.0-8.3); Neutrophils Percent Auto 69.8 % (45-73); Platelet Count 241 X10*3/uL (160-400); Red Blood Count 4.65 X10*6/uL (4.20-5.50); Red Cell Distribution Width 14.1 % (11.0-16.0)
[2024-10-06 14:06] LABS: Alanine Aminotransferase 8 U/L (0-31); Alkaline Phosphatase 67 U/L (39-117); Anion Gap 12 (12-20); Aspartate Amino Transferase 18 U/L (5-31); Bilirubin Total 0.4 mg/dL (0.0-1.0); Blood Urea Nitrogen 10 mg/dL (9-16); Calcium 9.1 mg/dL (8.4-10.2); Carbon Dioxide 26 mmol/L (22-29); Chloride 107 mmol/L (96-108); Cholesterol 151 mg/dL (<200); Estimated Glomerular Filt Rate > 60; Glucose Random 113 mg/dL (60-115); HDL Cholesterol 47 mg/dL (>40); LDL Cholesterol Calculated 94 mg/dL (<100); Potassium 3.9 mmol/L (3.3-5.1); Sodium 141 mmol/L (135-145); Total Protein 8.2 g/dL (6.5-8.0); Triglycerides 54 mg/dL (<150)
[2024-10-09 12:07] LABS: HCV Log PCR <1.18 NOT DETECTED Log IU/mL (NOT DETECTED); HepC Viral Load <15 NOT DETECTED IU/mL (NOT DETECTED)
== END 2024-10-06 11:17 | disposition home or self-care (01) ==
LOC: HO.HHCL 11:16
PROVIDERS: Family Medicine; Visit Provider Nurse Practitioner
DX: R79.89 Other specified abnormal findings of blood chemistry (principal); B18.2 Chronic viral hepatitis C
CPT/HCPCS: 36415; 80053; 80061; 85025; 87522